=== PATIENT | male | born 1950 | race Caucasian/White ===

== ENCOUNTER 2017-10-16 19:26 | Inpatient (IN) | payer BC ==
[2017-10-16 19:26] VITALS: BMI 25.8
[2017-10-16] MEDS ORDERED: Sodium Chloride 0.9% 1,000 ML IV ONE ×2 (19:35→20:06)
--- NOTE | 2017-10-16 19:42 | C.PDOC ---
History Of Present Illness Patient brought in via EMS after feeling dizzy and diaphoretic at work. Medics found patient to be hypotensive, they gave 2 sublingual nitro and 324mg of aspirin in the field. On arrival, patient continued to be diaphoretic, bradycardic, and hypotensive. Denies chest pain. Chief Complaint (Nursing): Dizziness/Lightheaded History Per: Patient, EMS History/Exam Limitations: no limitations Onset/Duration Of Symptoms: Hrs Current Symptoms Are (Timing): Worse Activity At Onset Of Symptoms: Standing Associated Symptoms Preceding Syncopal Episode: No Predromal Symptoms (Sudden Onset) Seizure Or Post-ictal Symptoms: None Possible Causative Factor(s): Other (Not known) Fall Associated With With Symptoms: No Severity: Severe Pain Scale Rating Of: 8 Recent travel outside of the [place]: No Additional History Per: EMS - Symptoms Of CVA Associated Symptoms: denies: Impaired Speech, Seizure Activity, New Vision Deficit(Left), New Vision Deficit(Right), Decreased Ability To Walk, New Confusion Recent Head Trauma: No Past Medical History Reviewed: Historical Data, Nursing Documentation, Vital Signs Vital Signs: Last Vital Signs Temp 97.4 F L 10/16/17 19:39 Pulse 42 L 10/16/17 20:33 Resp 22 10/16/17 20:33 BP 96/40 L 10/16/17 20:33 Pulse Ox 100 10/16/17 21:07 - Medical History PMH: HTN, Hypercholesterolemia Surgical History: Denies: Pacemaker - [facility] Procedures CONTRAST AORTOGRAM (08/10/14) CORONAR ARTERIOGR-2 CATH (08/10/14) LT HEART ANGIOCARDIOGRAM (08/10/14) RT/LEFT HEART CARD CATH (08/10/14) Family History: States: No Known Family Hx - Social History Hx Alcohol Use: Yes (SPECIAL OCCASIONS) Hx Substance Use: No - Immunization History Hx Tetanus Toxoid Vaccination: No Hx Influenza Vaccination: No Hx Pneumococcal Vaccination: Yes Review Of Systems Constitutional: Positive for: Sweats. Negative for: Fever, Chills Eyes: Negative for: Vision Change ENT: Negative for: Throat Pain Cardiovascular: Negative for: Chest Pain, Palpitations Respiratory: Negative for: Cough, Shortness of Breath Gastrointestinal: Negative for: Nausea, Vomiting Genitourinary: Negative for: Dysuria, Hematuria Musculoskeletal: Negative for: Back Pain Skin: Negative for: Rash Neurological: Positive for: Dizziness. Negative for: Weakness, Numbness Psych: Negative for: Anxiety Physical Exam - Physical Exam Appears: In Acute Distress Skin: Diaphoretic, No Rash Head: Normacephalic Eye(s): bilateral: Normal Inspection Nose: Normal Oral Mucosa: Dry Lips: Normal Appearing Throat: No Erythema Neck: Trachea Midline, Supple Chest: Other (Surgical scar over sternum after AVR) Cardiovascular: Rhythm Regular (Bradycardic) Respiratory: No Rales, No Rhonchi, No Wheezing Gastrointestinal/Abdominal: Soft, No Tenderness, No Distention, No Guarding Back: No CVA Tenderness Extremity: No Pedal Edema, No Calf Tenderness, Capillary Refill (<2 seconds) Extremity: Bilateral: Atraumatic, No Pedal Edema, Normal Color And Temperature Pulses: Left Carotid: Normal, Right Carotid: Normal, Left Radial: Normal, Right Radial: Normal, Left Dorsalis Pedis: Normal, Right Dorsalis Pedis: Normal Neurological/Psych: Oriented x3, Other (No focal deficits) Gait: Unable To Assess ED Course And Treatment - Laboratory Results Result Diagrams: 10/16/17 19:46 10/16/17 19:46 ECG: Interpreted By Me, Viewed By Me ECG Rhythm: Sinus Bradycardia (47), Nonspecific Changes O2 Sat by Pulse Oximetry: 100 (Room air) Pulse Ox Interpretation: Normal - Radiology CXR: Interpreted by Me, Viewed By Me CXR Interpretation: Yes: Other (chf, sternotomy scar, avr). No: Infiltrates, Cardiomegaly Progress Note: 19:22 - Texted Dr. Peng, code heart oncall, the EKG and states patient does not meet code heart criteria. Blood work, EKG, CXR, and urinalysis ordered. 7:42PM repeat ekg sinus shaka 48 , freq pvc's poss anterolat ischemic changes. 8 pm pt still somewhat diaphoretic, dizzy. 8:24 right sided ekg sinus shaka ? junctional vs escape rhythm. started pt on dopamine at [address] bryan-ICU- will come and see the pt in the ed. now sinus tach 108. will decrease the dopamine. pt feels better Critical Care Time - Critical Care Note Total Time (in mins): 95 Documented critical care: time excludes all time spent performing seperately billable procedures. Disposition Counseled Patient/Family Regarding: Studies Performed, Diagnosis - Disposition Disposition: HOSPITALIZED Disposition Time: 19:41 Condition: CRITICAL - POA Present On Arrival: Poor Glycemic Control - Clinical Impression Clinical Impression: Dizziness, Symptomatic bradycardia - Scribe Statement The provider has reviewed the documentation as recorded by the Scribleida Holden All medical record entries made by the Scribe were at my direction and personally dictated by me. I have reviewed the chart and agree that the record accurately reflects my personal performance of the history, physical exam, medical decision making, and the department course for this patient. I have also personally directed, reviewed, and agree with the discharge instructions and disposition. Decision To Admit - Pt Status Changed To: Hospital Disposition Of: Inpatient - Admit Certification Admit to Inpatient:: After my assessment, the patient will require hospitalization for at least two midnights. This is because of the severity of symptoms shown, intensity of services needed, and/or the medical risk in this patient being treated as an outpatient. - InPatient: Physician Admission Certification: I certify that this patient requires 2 or more midnights of care for the following reason:: After my assessment, the patient will require hospitalization for at least two midnights. This is because of the severity of symptoms shown, intensity of services needed, and/or the medical risk in this patient being treated as an outpatient. - . Bed Request Type: ICU Admitting Physician: Triston Leyva Patient Diagnosis: Dizziness, Symptomatic bradycardia
[2017-10-16] MEDS ORDERED: Atropine Sulfate 1 mg/ml Vial (1 ml) IVP ONE ×2 (19:43→20:06)
[2017-10-16 19:54] LABS: BASO # 0.1 K/uL (0.0-0.2); EOS # 0.3 K/uL (0.0-0.7); EOS % 2.1 % (0.0-4.0); HEMOGLOBIN 14.4 g/dL (12.0-18.0); LYMPH % 40.3 % (20.0-40.0); MEAN CELL VOLUME 80.6 fL (80.0-94.0); MEAN CORPUSCULAR HGB CONC 34.8 g/dL (33.0-37.0); MEAN PLATELET VOLUME 10.7 fL (7.2-11.7); MONO # 1.5 K/uL (0.0-0.8); MONO % 9.7 % (0.0-10.0); NEUT % 46.9 % (50.0-75.0); NRBC % 0.3 % (0.0-2.0); RBC 5.15 Mil/uL (4.40-5.90); RED CELL DISTRIBUTION WIDTH 13.6 % (11.5-14.5)
[2017-10-16 19:57] LABS: INR 1.2; PROTHROMBIN TIME 12.7 SECONDS (9.7-12.2)
[2017-10-16] MEDS ORDERED: Benzoin Compound Tincture (60 ml) ONE (19:58)
[2017-10-16 20:05] LABS: ALB/GLOB RATIO 1.5 (1.0-2.1); ALBUMIN 4.4 g/dL (3.5-5.0); ALT/SGPT 29 U/L (21-72); AST/SGOT 21 U/L (17-59); BLOOD UREA NITROGEN 33 mg/dL (9-20); CALCIUM 9.9 mg/dl (8.6-10.4); GFR AFRICAN-AMERICAN > 60; GFR NON-AFRICAN AMERICAN 55; HDL CHOLESTEROL 29 mg/dL (30-70); LIPASE 88 U/L (23-300)
[2017-10-16 20:08] LABS: VENOUS BLOOD GAS BASE EXCESS -1.7 mmol/L (0.0-2.0); VENOUS BLOOD GAS PCO2 19 mmHg (40-60); VENOUS BLOOD GAS PO2 68 mm/Hg (30-55); VENOUS BLOOD PH 7.58 (7.32-7.43)
[2017-10-16 20:16] LABS: B-TYPE NATRIURETIC PEPTIDE 739 pg/mL (0-900); CK-MB 1.43 ng/mL (0.0-3.38); LDL CHOLESTEROL 78 mg/dL (0-129)
[2017-10-16] MEDS ORDERED: DOPamine 400mg/250ml D5W 400 MG/250 ML BAG IV ONE (20:32)
[2017-10-16 22:03] LABS: URINE BACTERIA RARE (<OCC); URINE BILIRUBIN NEGATIVE (NEGATIVE); URINE BLOOD NEGATIVE (NEGATIVE); URINE CLARITY Clear (Clear); URINE COLOR Yellow (YELLOW); URINE GLUCOSE (UA) 1+ mg/dL (Normal); URINE LEUKOCYTE ESTERASE NEG Leu/uL (Negative); URINE PROTEIN NEGATIVE (NEGATIVE); URINE UROBILINOGEN NORMAL mg/dL (0.2-1.0)
--- NOTE | 2017-10-16 23:03 | CP.PCM.CON ---
History of Present Illness - History of Present Illness History of Present Illness: 67 y/o male with HTN,DM,Aortic valve replacement brought in via EMS with c/o dizziness,headache and sweating while at at work. Medics found patient to be hypotensive, they gave 2 sublingual nitro and 324mg of aspirin in the field. On arrival, patient continued to be diaphoretic, bradycardic, and hypotensive. Denies chest pain,difficulty breathing In ER rectal temperature was 93.9F Vomited in ER and ICU.C/o headache and dry mouth Denies abdominal pain. Review of Systems - Review of Systems Systems not reviewed;Unavailable: Unstable Vital Signs - Constitutional Constitutional: Headache. absent: Anorexia, Chills, Fever - EENT Eyes: absent: Blurred Vision, Pain Ears: Dizziness. absent: Ear Pain Nose/Mouth/Throat: absent: Hoarsness, Sore Throat - Cardiovascular Cardiovascular: absent: Chest Pain, Dyspnea, Edema, Palpitations - Respiratory Respiratory: absent: Cough, Dyspnea - Gastrointestinal Gastrointestinal: Nausea, Vomiting. absent: Abdominal Pain - Genitourinary Genitourinary: absent: Dysuria, Urinary Frequency - Musculoskeletal Musculoskeletal: absent: Back Pain, Neck Pain - Integumentary Integumentary: absent: Rash, Unusual Bruising - Neurological Neurological: Dizziness - Endocrine Endocrine: absent: Polydipsia, Polyuria Past Patient History - Infectious Disease Hx of Infectious Diseases: None - Past Medical History & Family History Past Medical History?: Yes - Past Social History Smoking Status: Never Smoked Occupation: works at the [employer]: Denies Home Situation {Lives}: With Family - CARDIAC Hx Cardiac Disorders: Yes Hx Congestive Heart Failure: Yes Hx Hypercholesterolemia: Yes Hx Hypertension: Yes - PULMONARY Hx Respiratory Disorders: No - NEUROLOGICAL Hx Neurological Disorder: No - HEENT Hx HEENT Problems: Yes Other/Comment: wearseyeglasses - RENAL Hx Chronic Kidney Disease: No - ENDOCRINE/METABOLIC Hx Endocrine Disorders: Yes Hx Diabetes Mellitus Type 2: Yes - HEMATOLOGICAL/ONCOLOGICAL Hx Blood Disorders: No - INTEGUMENTARY Hx Dermatological Problems: No - MUSCULOSKELETAL/RHEUMATOLOGICAL Hx Musculoskeletal Disorders: No - GASTROINTESTINAL Hx Gastrointestinal Disorders: No - GENITOURINARY/GYNECOLOGICAL Hx Genitourinary Disorders: No - PSYCHIATRIC Hx Psychophysiologic Disorder: No - SURGICAL HISTORY Hx Surgeries: Yes (KIDNEY BX) Hx Open Heart Surgery: Yes (aortic valve replac, 2 yrs ago) - ANESTHESIA Hx Anesthesia: Yes Hx Anesthesia Reactions: No Hx Malignant Hyperthermia: No Has any member of the family had a problem w/ anesthesia?: No Meds Allergies/Adverse Reactions: Allergies Allergy/AdvReac Type Severity Reaction Status Date / Time No Known Allergies Allergy Verified 10/16/17 19:32 - Medications Medications: Current Medications Sodium Chloride (Sodium Chloride 0.9%) 1,000 mls @ 100 mls/hr IV .Q10H ONE Stop: 10/17/17 06:05 Last Admin: 10/16/17 20:07 Dose: 100 mls/hr Potassium Chloride (Potassium Chloride 20 Meq/100 Ml) 20 meq in 100 mls @ 50 mls/hr IVPB ONCE ONE Stop: 10/16/17 23:44 Last Admin: 10/16/17 21:45 Dose: 50 mls/hr Physical Exam - Constitutional Appears: No Acute Distress - Head Exam Head Exam: ATRAUMATIC, NORMAL INSPECTION, NORMOCEPHALIC - Eye Exam Eye Exam: EOMI, Normal appearance, PERRL - ENT Exam ENT Exam: Mucous Membranes Dry - Neck Exam Neck exam: Positive for: Normal Inspection. Negative for: Meningismus - Respiratory Exam Respiratory Exam: Clear to Auscultation Bilateral, NORMAL BREATHING PATTERN - Cardiovascular Exam Cardiovascular Exam: Irregular Rhythm. absent: JVD - GI/Abdominal Exam GI & Abdominal Exam: Normal Bowel Sounds, Soft. absent: Tenderness - Extremities Exam Extremities exam: Positive for: normal inspection, pedal pulses present. Negative for: calf tenderness, pedal edema - Neurological Exam Neurological exam: Alert, Oriented x3 - Skin Skin Exam: Normal Color Results - Vital Signs Recent Vital Signs: Last Vital Signs Temp 93.9 F L 10/16/17 21:15 Pulse 71 10/16/17 21:15 Resp 16 10/16/17 21:15 BP 115/45 L 10/16/17 21:15 Pulse Ox 100 10/16/17 21:28 - Labs Result Diagrams: 10/16/17 19:46 10/16/17 19:46 Labs: Laboratory Results - last 24 hr 10/16/17 10/16/17 10/16/17 19:30 19:46 19:46 WBC 15.0 H RBC 5.15 Hgb 14.4 Hct 41.5 MCV 80.6 MCH 28.0 MCHC 34.8 RDW 13.6 Plt Count 213 MPV 10.7 Neut % (Auto) 46.9 L Lymph % (Auto) 40.3 H Ware % (Auto) 9.7 Eos % (Auto) 2.1 Baso % (Auto) 1.0 Neut # (Auto) 7.0 Lymph # (Auto) 6.0 H Ware # (Auto) 1.5 H Eos # (Auto) 0.3 Baso # (Auto) 0.1 PT 12.7 H INR 1.2 APTT 29 pO2 VBG pH VBG pCO2 VBG HCO3 VBG Total CO2 VBG O2 Sat (Calc) VBG Base Excess VBG Potassium Glucose Lactate Crit Value Called To Crit Value Called By Crit Value Read Back Blood Gas Notified Time Sodium Potassium Chloride Carbon Dioxide Anion Gap BUN Creatinine Est GFR ( Amer) Est GFR (Non-Af Amer) POC Glucose (mg/dL) 170 H Random Glucose Calcium Total Bilirubin AST ALT Alkaline Phosphatase Total Creatine Kinase CK-MB (Mass) Troponin I NT-Pro-B Natriuret Pep Total Protein Albumin Globulin Albumin/Globulin Ratio Triglycerides Cholesterol LDL Cholesterol Direct HDL Cholesterol Lipase Free T4 TSH 3rd Generation Plasma Cortisol PM Venous Blood Potassium Urine Color Urine Clarity Urine pH Ur Specific [place] Urine Protein Urine Glucose (UA) Urine Ketones Urine Blood Urine Nitrate Urine Bilirubin Urine Urobilinogen Ur Leukocyte Esterase Urine WBC (Auto) Urine RBC (Auto) Urine Bacteria Blood Type Antibody Screen 10/16/17 10/16/17 10/16/17 19:46 19:46 19:55 WBC RBC Hgb Hct MCV MCH MCHC RDW Plt Count MPV Neut % (Auto) Lymph % (Auto) Ware % (Auto) Eos % (Auto) Baso % (Auto) Neut # (Auto) Lymph # (Auto) Ware # (Auto) Eos # (Auto) Baso # (Auto) PT INR APTT pO2 68 H VBG pH 7.58 H VBG pCO2 19 L* VBG HCO3 23.6 VBG Total CO2 18.4 L VBG O2 Sat (Calc) 96.5 H VBG Base Excess -1.7 L VBG Potassium 2.9 L Glucose 178 H Lactate 2.6 H Crit Value Called To Er nurse Crit Value Called By Ismael rt Crit Value Read Back Y Blood Gas Notified Time 2007 Sodium 143 141.0 Potassium 3.1 L Chloride 108 H 109.0 H Carbon Dioxide 17 L Anion Gap 21 H BUN 33 H Creatinine 1.3 Est GFR ( Amer) > 60 Est GFR (Non-Af Amer) 55 POC Glucose (mg/dL) Random Glucose 179 H Calcium 9.9 Total Bilirubin 0.6 AST 21 ALT 29 Alkaline Phosphatase 73 Total Creatine Kinase 93 CK-MB (Mass) 1.43 Troponin I < 0.0120 NT-Pro-B Natriuret Pep 739 Total Protein 7.3 Albumin 4.4 Globulin 2.9 Albumin/Globulin Ratio 1.5 Triglycerides 204 H Cholesterol 150 LDL Cholesterol Direct 78 HDL Cholesterol 29 L Lipase 88 Free T4 TSH 3rd Generation Plasma Cortisol PM Venous Blood Potassium 2.9 L Urine Color Urine Clarity Urine pH Ur Specific [place] Urine Protein Urine Glucose (UA) Urine Ketones Urine Blood Urine Nitrate Urine Bilirubin Urine Urobilinogen Ur Leukocyte Esterase Urine WBC (Auto) Urine RBC (Auto) Urine Bacteria Blood Type O POSITIVE Antibody Screen Negative 10/16/17 10/16/17 10/16/17 21:48 21:48 21:48 WBC RBC Hgb Hct MCV MCH MCHC RDW Plt Count MPV Neut % (Auto) Lymph % (Auto) Ware % (Auto) Eos % (Auto) Baso % (Auto) Neut # (Auto) Lymph # (Auto) Ware # (Auto) Eos # (Auto) Baso # (Auto) PT INR APTT pO2 VBG pH VBG pCO2 VBG HCO3 VBG Total CO2 VBG O2 Sat (Calc) VBG Base Excess VBG Potassium Glucose Lactate Crit Value Called To Crit Value Called By Crit Value Read Back Blood Gas Notified Time Sodium Potassium Chloride Carbon Dioxide Anion Gap BUN Creatinine Est GFR ( Amer) Est GFR (Non-Af Amer) POC Glucose (mg/dL) Random Glucose Calcium Total Bilirubin AST ALT Alkaline Phosphatase Total Creatine Kinase CK-MB (Mass) Troponin I NT-Pro-B Natriuret Pep Total Protein Albumin Globulin Albumin/Globulin Ratio Triglycerides Cholesterol LDL Cholesterol Direct HDL Cholesterol Lipase Free T4 TSH 3rd Generation 1.42 Plasma Cortisol PM 30.4 H Venous Blood Potassium Urine Color Yellow Urine Clarity Clear Urine pH 5.0 Ur Specific [place] 1.010 Urine Protein Negative Urine Glucose (UA) 1+ H Urine Ketones Trace Urine Blood Negative Urine Nitrate Negative Urine Bilirubin Negative Urine Urobilinogen Normal Ur Leukocyte Esterase Neg Urine WBC (Auto) 1 Urine RBC (Auto) 1 Urine Bacteria Rare Blood Type Antibody Screen 10/16/17 21:54 WBC RBC Hgb Hct MCV MCH MCHC RDW Plt Count MPV Neut % (Auto) Lymph % (Auto) Ware % (Auto) Eos % (Auto) Baso % (Auto) Neut # (Auto) Lymph # (Auto) Ware # (Auto) Eos # (Auto) Baso # (Auto) PT INR APTT pO2 VBG pH VBG pCO2 VBG HCO3 VBG Total CO2 VBG O2 Sat (Calc) VBG Base Excess VBG Potassium Glucose Lactate Crit Value Called To Crit Value Called By Crit Value Read Back Blood Gas Notified Time Sodium Potassium Chloride Carbon Dioxide Anion Gap BUN Creatinine Est GFR ( Amer) Est GFR (Non-Af Amer) POC Glucose (mg/dL) Random Glucose Calcium Total Bilirubin AST ALT Alkaline Phosphatase Total Creatine Kinase CK-MB (Mass) Troponin I NT-Pro-B Natriuret Pep Total Protein Albumin Globulin Albumin/Globulin Ratio Triglycerides Cholesterol LDL Cholesterol Direct HDL Cholesterol Lipase Free T4 1.06 TSH 3rd Generation Plasma Cortisol PM Venous Blood Potassium Urine Color Urine Clarity Urine pH Ur Specific [place] Urine Protein Urine Glucose (UA) Urine Ketones Urine Blood Urine Nitrate Urine Bilirubin Urine Urobilinogen Ur Leukocyte Esterase Urine WBC (Auto) Urine RBC (Auto) Urine Bacteria Blood Type Antibody Screen - EKG Data EKG Interpreted by: Myself - Imaging and Cardiology Chest x-ray Status: Image reviewed by me CT scan - head Status: Image reviewed by me Assessment & Plan - Assessment and Plan (Free Text) Assessment: 67 y/o male with HTN,DM,aortic valve replacement admitted with bradycardia, hypotension and hypothermia, Respiratory alkalosis r/o sepsis / ?cardiac eitiology initial troponin normal IV antibiotics Hypokalemia-replace potassium h/o HTN-hold meds DM- insulin coverage
[2017-10-16] MEDS ORDERED: (Novolin R) Insulin Human Regular 100 units/ml vial SC SCH (23:30)
[2017-10-16] MEDS: Piperacill/Tazo 3.375gm in Dex 3.375 GM/50 ML BAG IVPB SCH (23:30)
[2017-10-16 23:50] LABS: VENOUS BLOOD GAS PCO2 30 mmHg (40-60); VENOUS BLOOD GAS PO2 37 mm/Hg (30-55)
[2017-10-17 00:29] LABS: BLOOD UREA NITROGEN 30 mg/dL (9-20); CALCIUM 9.2 mg/dl (8.6-10.4); GFR AFRICAN-AMERICAN > 60; GFR NON-AFRICAN AMERICAN > 60
[2017-10-17] MEDS: (Novolin R) Insulin Human Regular 100 units/ml vial SC SCH ×5 (00:30→21:16)
--- NOTE | 2017-10-17 00:51 | CP.PCM.HP ---
<Sue Corrales - Last Filed: 10/17/17 01:21> History of Present Illness - History of Present Illness History of Present Illness: CC: Headche and diaphoretic HPI (As per family member and some information from patient) Patient is a 67 year old male with past medical history of HTN, DM, Hypercholesterolemia, Congenital aortic valve dz? (Aortic valve replacement 2 years ago), who was brought in by ambulance due to symptoms of sudden dizziness , diaphoresis and headache with associated symptoms of nausea and vomiting. As per patient, he was completely asymptomatic and doing well until the onset of his symptoms. As per EMS, patient was noted to be hypotensive and was given loading dose of aspirin and Sublingual Nitro X2. Upon arrival to the ED, patient was noted to have additional symptoms of sinus bradycardia (pulse rate of 48), patient was given NS bolus and 2mg of atropine, which did not provide much improvement. ICU evaluation was requested as patient was started on dopamine drip in the ED. Patient admits to dizziness, headache, nausea, non- bilious vomit X6, diaphoretic, dyspnea but denies chest pain, recent sickness, sick contact or recent travels, neck pain and abdominal pain. Patient denies any past episodes of similar presentation. Code Status: Full code PMHx: HTN, DM, Hypercholesterolemia, Congenital aortic valve dz? PSHx: Kidney biopsy (? Left for proteinuria) and Aortic valve replacement 2 years ago) FHx: Non-contributory Medications: Allergies: NKDA Social Hx: Lives with . 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 Denies current or former use of tobacco, ETOH and illicit drugs Present on Admission - Present on Admission Any Indicators Present on Admission: No Review of Systems - Constitutional Constitutional: Excessive Sweating, Headache, Lethargy, Weakness. absent: Anorexia, Chills - EENT Eyes: absent: Blurred Vision, Change in Vision, Photophobia Ears: Dizziness - Cardiovascular Cardiovascular: Diaphoresis, Dyspnea. absent: Chest Pain, Orthopnea, Palpitations, Pedal Edema, Radiating Pain, Rapid Heart Rate, Slow Heart Rate, Syncope - Respiratory Respiratory: Dyspnea. absent: Cough, Hemoptysis, Dyspnea on Exertion, Wheezing , Pain on Inspiration, Chest Congestion, Excessive Mucous Production, Change in Mucous Color, Pain with Coughing - Gastrointestinal Gastrointestinal: Nausea, Vomiting. absent: Abdominal Pain, Diarrhea, Excessive Flatus, Hematemesis - Genitourinary Genitourinary: absent: Dysuria, Pyuria - Musculoskeletal Musculoskeletal: absent: Limited Range of Motion, Numbness, Tingling - Integumentary Integumentary: absent: Rash - Neurological Neurological: Dizziness, Headaches, Weakness. absent: Confusion, Numbness, Lack of Coordination, Tingling, Tremor Past Patient History - Infectious Disease Hx of Infectious Diseases: None - Past Medical History & Family History Past Medical History?: Yes - Past Social History Smoking Status: Never Smoked Occupation: works at [employer]: Denies Home Situation {Lives}: With Family - CARDIAC Hx Cardiac Disorders: Yes Hx Congestive Heart Failure: Yes Hx Hypercholesterolemia: Yes Hx Hypertension: Yes - PULMONARY Hx Respiratory Disorders: No - NEUROLOGICAL Hx Neurological Disorder: No - HEENT Hx HEENT Problems: Yes Other/Comment: [email or web address] - RENAL Hx Chronic Kidney Disease: No - ENDOCRINE/METABOLIC Hx Endocrine Disorders: Yes Hx Diabetes Mellitus Type 2: Yes - HEMATOLOGICAL/ONCOLOGICAL Hx Blood Disorders: No - INTEGUMENTARY Hx Dermatological Problems: No - MUSCULOSKELETAL/RHEUMATOLOGICAL Hx Musculoskeletal Disorders: No - GASTROINTESTINAL Hx Gastrointestinal Disorders: No - GENITOURINARY/GYNECOLOGICAL Hx Genitourinary Disorders: No - PSYCHIATRIC Hx Psychophysiologic Disorder: No - SURGICAL HISTORY Hx Surgeries: Yes (KIDNEY BX) Hx Open Heart Surgery: Yes (aortic valve replac, 2 yrs ago) - ANESTHESIA Hx Anesthesia: Yes Hx Anesthesia Reactions: No Hx Malignant Hyperthermia: No Has any member of the family had a problem w/ anesthesia?: No Meds Allergies/Adverse Reactions: Allergies Allergy/AdvReac Type Severity Reaction Status Date / Time No Known Allergies Allergy Verified 10/16/17 19:32 Physical Exam - Constitutional Appears: In Acute Distress - Head Exam Head Exam: ATRAUMATIC, NORMAL INSPECTION - Eye Exam Eye Exam: EOMI, Normal appearance, PERRL - ENT Exam ENT Exam: Mucous Membranes Moist - Respiratory Exam Respiratory Exam: Clear to Auscultation Bilateral, NORMAL BREATHING PATTERN. absent: Chest Wall Tenderness, Prolonged Expiratory Phase, Rhonchi, Wheezes, Respiratory Distress, Stridor - Cardiovascular Exam Cardiovascular Exam: Bradycardia, REGULAR RHYTHM, +S1, +S2, Systolic Murmur - GI/Abdominal Exam GI & Abdominal Exam: Normal Bowel Sounds, Soft. absent: Diminished Bowel Sounds , Distended, Guarding, Hyperactive Bowel Sounds, Hypoactive Bowel Sounds, Tenderness - Extremities Exam Extremities exam: Positive for: normal inspection. Negative for: calf tenderness, joint swelling, pedal edema, tenderness - Back Exam Back exam: NORMAL INSPECTION. absent: CVA tenderness (L), CVA tenderness (R) - Neurological Exam Neurological exam: Alert, CN II-XII Intact, Oriented x3 - Psychiatric Exam Psychiatric exam: Normal Affect - Skin Skin Exam: Diaphoretic, Normal Color Results - Vital Signs Recent Vital Signs: Last Vital Signs Temp 93.9 F L 10/16/17 21:15 Pulse 71 10/16/17 21:15 Resp 16 10/16/17 21:15 BP 115/45 L 10/16/17 21:15 Pulse Ox 100 10/16/17 21:28 - Labs Result Diagrams: 10/16/17 19:46 10/16/17 23:59 Labs: Laboratory Results - last 24 hr 10/16/17 10/16/17 10/16/17 19:30 19:46 19:46 WBC 15.0 H RBC 5.15 Hgb 14.4 Hct 41.5 MCV 80.6 MCH 28.0 MCHC 34.8 RDW 13.6 Plt Count 213 MPV 10.7 Neut % (Auto) 46.9 L Lymph % (Auto) 40.3 H Frederick % (Auto) 9.7 Eos % (Auto) 2.1 Baso % (Auto) 1.0 Neut # (Auto) 7.0 Lymph # (Auto) 6.0 H Frederick # (Auto) 1.5 H Eos # (Auto) 0.3 Baso # (Auto) 0.1 PT 12.7 H INR 1.2 APTT 29 pO2 VBG pH VBG pCO2 VBG HCO3 VBG Total CO2 VBG O2 Sat (Calc) VBG Base Excess VBG Potassium Glucose Lactate Crit Value Called To Crit Value Called By Crit Value Read Back Blood Gas Notified Time Sodium Potassium Chloride Carbon Dioxide Anion Gap BUN Creatinine Est GFR ( Amer) Est GFR (Non-Af Amer) POC Glucose (mg/dL) 170 H Random Glucose Calcium Magnesium Total Bilirubin AST ALT Alkaline Phosphatase Total Creatine Kinase CK-MB (Mass) Troponin I NT-Pro-B Natriuret Pep Total Protein Albumin Globulin Albumin/Globulin Ratio Triglycerides Cholesterol LDL Cholesterol Direct HDL Cholesterol Lipase Free T4 TSH 3rd Generation Plasma Cortisol PM Venous Blood Potassium Urine Color Urine Clarity Urine pH Ur Specific Acworth Urine Protein Urine Glucose (UA) Urine Ketones Urine Blood Urine Nitrate Urine Bilirubin Urine Urobilinogen Ur Leukocyte Esterase Urine WBC (Auto) Urine RBC (Auto) Urine Bacteria Blood Type Antibody Screen 10/16/17 10/16/17 10/16/17 19:46 19:46 19:55 WBC RBC Hgb Hct MCV MCH MCHC RDW Plt Count MPV Neut % (Auto) Lymph % (Auto) Frederick % (Auto) Eos % (Auto) Baso % (Auto) Neut # (Auto) Lymph # (Auto) Frederick # (Auto) Eos # (Auto) Baso # (Auto) PT INR APTT pO2 68 H VBG pH 7.58 H VBG pCO2 19 L* VBG HCO3 23.6 VBG Total CO2 18.4 L VBG O2 Sat (Calc) 96.5 H VBG Base Excess -1.7 L VBG Potassium 2.9 L Glucose 178 H Lactate 2.6 H Crit Value Called To Er nurse Crit Value Called By Ismael rt Crit Value Read Back Y Blood Gas Notified Time 2007 Sodium 143 141.0 Potassium 3.1 L Chloride 108 H 109.0 H Carbon Dioxide 17 L Anion Gap 21 H BUN 33 H Creatinine 1.3 Est GFR ( Amer) > 60 Est GFR (Non-Af Amer) 55 POC Glucose (mg/dL) Random Glucose 179 H Calcium 9.9 Magnesium Total Bilirubin 0.6 AST 21 ALT 29 Alkaline Phosphatase 73 Total Creatine Kinase 93 CK-MB (Mass) 1.43 Troponin I < 0.0120 NT-Pro-B Natriuret Pep 739 Total Protein 7.3 Albumin 4.4 Globulin 2.9 Albumin/Globulin Ratio 1.5 Triglycerides 204 H Cholesterol 150 LDL Cholesterol Direct 78 HDL Cholesterol 29 L Lipase 88 Free T4 TSH 3rd Generation Plasma Cortisol PM Venous Blood Potassium 2.9 L Urine Color Urine Clarity Urine pH Ur Specific Acworth Urine Protein Urine Glucose (UA) Urine Ketones Urine Blood Urine Nitrate Urine Bilirubin Urine Urobilinogen Ur Leukocyte Esterase Urine WBC (Auto) Urine RBC (Auto) Urine Bacteria Blood Type O POSITIVE Antibody Screen Negative 10/16/17 10/16/17 10/16/17 21:48 21:48 21:48 WBC RBC Hgb Hct MCV MCH MCHC RDW Plt Count MPV Neut % (Auto) Lymph % (Auto) Frederick % (Auto) Eos % (Auto) Baso % (Auto) Neut # (Auto) Lymph # (Auto) Frederick # (Auto) Eos # (Auto) Baso # (Auto) PT INR APTT pO2 VBG pH VBG pCO2 VBG HCO3 VBG Total CO2 VBG O2 Sat (Calc) VBG Base Excess VBG Potassium Glucose Lactate Crit Value Called To Crit Value Called By Crit Value Read Back Blood Gas Notified Time Sodium Potassium Chloride Carbon Dioxide Anion Gap BUN Creatinine Est GFR ( Amer) Est GFR (Non-Af Amer) POC Glucose (mg/dL) Random Glucose Calcium Magnesium Total Bilirubin AST ALT Alkaline Phosphatase Total Creatine Kinase CK-MB (Mass) Troponin I NT-Pro-B Natriuret Pep Total Protein Albumin Globulin Albumin/Globulin Ratio Triglycerides Cholesterol LDL Cholesterol Direct HDL Cholesterol Lipase Free T4 TSH 3rd Generation 1.42 Plasma Cortisol PM 30.4 H Venous Blood Potassium Urine Color Yellow Urine Clarity Clear Urine pH 5.0 Ur Specific Acworth 1.010 Urine Protein Negative Urine Glucose (UA) 1+ H Urine Ketones Trace Urine Blood Negative Urine Nitrate Negative Urine Bilirubin Negative Urine Urobilinogen Normal Ur Leukocyte Esterase Neg Urine WBC (Auto) 1 Urine RBC (Auto) 1 Urine Bacteria Rare Blood Type Antibody Screen 10/16/17 10/16/17 10/16/17 21:54 23:30 23:42 WBC RBC Hgb Hct MCV MCH MCHC RDW Plt Count MPV Neut % (Auto) Lymph % (Auto) Frederick % (Auto) Eos % (Auto) Baso % (Auto) Neut # (Auto) Lymph # (Auto) Frederick # (Auto) Eos # (Auto) Baso # (Auto) PT INR APTT pO2 37 VBG pH 7.40 VBG pCO2 30 L VBG HCO3 20.3 VBG Total CO2 19.5 L VBG O2 Sat (Calc) 73.6 H VBG Base Excess -5.0 L VBG Potassium 13.3 H* Glucose 214 H Lactate 1.1 Crit Value Called To Lauri ricks viticulturist Crit Value Called By Naomi maher rt Crit Value Read Back Y Blood Gas Notified Time 2349 Sodium 134.0 Potassium Chloride 118.0 H Carbon Dioxide Anion Gap BUN Creatinine Est GFR ( Amer) Est GFR (Non-Af Amer) POC Glucose (mg/dL) Random Glucose Calcium Magnesium 1.1 L Total Bilirubin AST ALT Alkaline Phosphatase Total Creatine Kinase CK-MB (Mass) Troponin I NT-Pro-B Natriuret Pep Total Protein Albumin Globulin Albumin/Globulin Ratio Triglycerides Cholesterol LDL Cholesterol Direct HDL Cholesterol Lipase Free T4 1.06 TSH 3rd Generation Plasma Cortisol PM Venous Blood Potassium 13.3 H* Urine Color Urine Clarity Urine pH Ur Specific [place]worth Urine Protein Urine Glucose (UA) Urine Ketones Urine Blood Urine Nitrate Urine Bilirubin Urine Urobilinogen Ur Leukocyte Esterase Urine WBC (Auto) Urine RBC (Auto) Urine Bacteria Blood Type Antibody Screen 10/16/17 10/17/17 23:59 00:36 WBC RBC Hgb Hct MCV MCH MCHC RDW Plt Count MPV Neut % (Auto) Lymph % (Auto) Frederick % (Auto) Eos % (Auto) Baso % (Auto) Neut # (Auto) Lymph # (Auto) Frederick # (Auto) Eos # (Auto) Baso # (Auto) PT INR APTT pO2 VBG pH VBG pCO2 VBG HCO3 VBG Total CO2 VBG O2 Sat (Calc) VBG Base Excess VBG Potassium Glucose Lactate Crit Value Called To Crit Value Called By Crit Value Read Back Blood Gas Notified Time Sodium 144 Potassium 3.7 Chloride 110 H Carbon Dioxide 21 L Anion Gap 17 BUN 30 H Creatinine 1.1 Est GFR ( Amer) > 60 Est GFR (Non-Af Amer) > 60 POC Glucose (mg/dL) 226 H Random Glucose 222 H Calcium 9.2 Magnesium Total Bilirubin AST ALT Alkaline Phosphatase Total Creatine Kinase CK-MB (Mass) Troponin I NT-Pro-B Natriuret Pep Total Protein Albumin Globulin Albumin/Globulin Ratio Triglycerides Cholesterol LDL Cholesterol Direct HDL Cholesterol Lipase Free T4 TSH 3rd Generation Plasma Cortisol PM Venous Blood Potassium Urine Color Urine Clarity Urine pH Ur Specific Acworth Urine Protein Urine Glucose (UA) Urine Ketones Urine Blood Urine Nitrate Urine Bilirubin Urine Urobilinogen Ur Leukocyte Esterase Urine WBC (Auto) Urine RBC (Auto) Urine Bacteria Blood Type Antibody Screen Assessment & Plan (1) Symptomatic bradycardia Assessment and Plan: With hypotension Dopamine Drip (Titratable) F/u echocardiogram Status: Acute (2) Hypotension Assessment and Plan: Dopamine Drip (Titratable) Plasma Cortisol: 30.4 ( WNL) TSH and Free T4: 1.42 and 1.06, respectively Troponin: Negative X1 Chest CT w/o IV contrast: No acute findings Status: Acute (3) Headache Assessment and Plan: Associated with nausea and vomiting Head CT: No hemorrhage, No edema. Opacified maxillary sinuses with periosteal thickening (Chronic sinusitis). Calcified mass in the right nasal airway. Plans of Brain MRI Vancomycin 1gm IV Q12H and Zosyn 3.375gm IV Q6H ( Empirical treatment for infectious etiology) Status: Acute (4) Nausea & vomiting Assessment and Plan: NPO Zofran 4mg IV Q6H PRN Protonix 40mg IV daily Status: Acute (5) Diabetes mellitus Assessment and Plan: Accuckes ISS- Low dose Status: Acute (6) Prophylactic measure Assessment and Plan: GI: Protonix 40mg IV daily DVT: Lovenox 30mg SC daily Status: Acute <Triston Leyva P - Last Filed: 10/19/17 07:59> Results - Vital Signs Recent Vital Signs: Last Vital Signs Temp 98.1 F 10/19/17 04:00 Pulse 79 10/19/17 06:02 Resp 9 L 10/19/17 06:02 BP 148/65 10/19/17 06:02 Pulse Ox 96 10/19/17 06:02 - Labs Result Diagrams: 10/19/17 06:00 10/19/17 06:00 Labs: Laboratory Results - last 24 hr 10/18/17 10/18/17 10/18/17 09:57 09:57 09:57 WBC RBC Hgb Hct MCV MCH MCHC RDW Plt Count MPV Neut % (Auto) Lymph % (Auto) Frederick % (Auto) Eos % (Auto) Baso % (Auto) Neut # (Auto) Lymph # (Auto) Frederick # (Auto) Eos # (Auto) Baso # (Auto) ESR 15 Sodium Potassium Chloride Carbon Dioxide Anion Gap BUN Creatinine Est GFR ( Amer) Est GFR (Non-Af Amer) POC Glucose (mg/dL) Random Glucose Calcium Phosphorus Magnesium Total Bilirubin AST ALT Alkaline Phosphatase C-React Prot High Sens 3.01 H Total Protein Albumin Globulin Albumin/Globulin Ratio Triglycerides 109 D Cholesterol 153 LDL Cholesterol Direct 83 HDL Cholesterol 29 L Homocysteine 10.2 Free T4 0.81 TSH 3rd Generation 1.28 1.35 Vancomycin Trough 10/18/17 10/18/17 10/18/17 09:57 11:23 16:28 WBC RBC Hgb Hct MCV MCH MCHC RDW Plt Count MPV Neut % (Auto) Lymph % (Auto) Frederick % (Auto) Eos % (Auto) Baso % (Auto) Neut # (Auto) Lymph # (Auto) Frederick # (Auto) Eos # (Auto) Baso # (Auto) ESR Sodium Potassium Chloride Carbon Dioxide Anion Gap BUN Creatinine Est GFR ( Amer) Est GFR (Non-Af Amer) POC Glucose (mg/dL) 192 H 84 Random Glucose Calcium Phosphorus Magnesium Total Bilirubin AST ALT Alkaline Phosphatase C-React Prot High Sens Total Protein Albumin Globulin Albumin/Globulin Ratio Triglycerides Cholesterol LDL Cholesterol Direct HDL Cholesterol Homocysteine Free T4 TSH 3rd Generation Vancomycin Trough 12.7 H 10/18/17 10/19/17 10/19/17 21:08 06:00 06:00 WBC 6.6 RBC 4.73 Hgb 13.3 Hct 38.6 MCV 81.6 MCH 28.2 MCHC 34.5 RDW 13.8 Plt Count 102 L MPV 9.5 Neut % (Auto) 57.0 Lymph % (Auto) 29.8 Frederick % (Auto) 8.7 Eos % (Auto) 3.3 Baso % (Auto) 1.2 Neut # (Auto) 3.7 Lymph # (Auto) 2.0 Frederick # (Auto) 0.6 Eos # (Auto) 0.2 Baso # (Auto) 0.1 ESR Sodium 142 Potassium 4.1 Chloride 109 H Carbon Dioxide 23 Anion Gap 14 BUN 19 Creatinine 1.0 Est GFR ( Amer) > 60 Est GFR (Non-Af Amer) > 60 POC Glucose (mg/dL) 102 Random Glucose 99 Calcium 9.4 Phosphorus 2.8 Magnesium 1.6 Total Bilirubin 0.7 AST 16 L ALT 27 Alkaline Phosphatase 49 C-React Prot High Sens Total Protein 6.6 Albumin 3.7 Globulin 2.9 Albumin/Globulin Ratio 1.3 Triglycerides Cholesterol LDL Cholesterol Direct HDL Cholesterol Homocysteine Free T4 TSH 3rd Generation Vancomycin Trough Attending/Attestation - Attestation I have personally seen and examined this patient.: Yes I have fully participated in the care of the patient.: Yes I have reviewed all pertinent clinical information: Yes Notes (Text): See note on the same day
[2017-10-17] MEDS ORDERED: Magnesium Sulfate 1 gm in D5W 1 GM/100 ML BAG IVPB ONE (01:54)
--- NOTE | 2017-10-17 02:13 | CP.PCM.PN ---
Subjective - Date & Time of Evaluation Date of Evaluation: 10/16/17 Time of Evaluation: 21:00 - Subjective Subjective: 67 M with h/o AVR 2 yrs back, around 6:30 pm last evening suddenly started to have frontal headache, vomiting, nausea and dizziness. In hospital he was found bradycardic in 30's sinus rhythm, hypotensive, resp alkalosis. CT chest showed atelactesis, CT head unremarkable. Patient was started on dopamine in ER to maintain HR and BP. Patient remained Alert and oriented in ER. chest clear, CVS irregular shaka, sinus with PVC, PA soft, Ext no edema, RELATIONSHIP CONSULTANT alert oriented x3, headache but not nect tendersess or rigidity, or meningeal irritation signs. Hypothermic 93F in ER. Cortisol elevated appropriately and TSH/Ft4 in normal range. DD of RELATIONSHIP CONSULTANT vascular phenomena, migraine, unlikely but possible hidden subarachnoid, sepsis. Plan Titrate and dc dopamine as tolerated Bear hugger Empiric axb started MRI, MRA, MRV Echo Hold anticoagulation till MR imaging done Accucheck/sliding scale coverage Admitted to ICU. Objective - Vital Signs/Intake and Output Vital Signs (last 24 hours): Temp Pulse Resp BP Pulse Ox 93.9 F L 71 16 115/45 L 100 10/16/17 21:15 10/16/17 21:15 10/16/17 21:15 10/16/17 21:15 10/16/17 21:28 - Medications Medications: Current Medications Enoxaparin Sodium (Lovenox) 30 mg SC DAILY KEESHA Sodium Chloride (Sodium Chloride 0.9%) 1,000 mls @ 100 mls/hr IV .Q10H ONE Stop: 10/17/17 06:05 Last Admin: 10/16/17 20:07 Dose: 100 mls/hr Piperacillin Sod/Tazobactam Sod (Zosyn 3.375 Gm Iv Premix) 3.375 gm in 50 mls @ 100 mls/hr IVPB Q6H KEESHA PRN Reason: Protocol Last Admin: 10/16/17 23:30 Dose: 100 mls/hr Vancomycin/Sodium Chloride (Vancomycin 1 Gm/Ns 200 Ml) 1 gm in 200 mls @ 166.6 mls/hr IVPB Q12H KEESHA PRN Reason: Protocol Stop: 10/21/17 23:01 Last Admin: 10/17/17 00:00 Dose: 166.6 mls/hr Magnesium Sulfate/Dextrose (Magnesium Sulfate 1 Gm/100 Ml D5w) 1 gm in 100 mls @ 200 mls/hr IVPB ONCE ONE Stop: 10/17/17 02:23 Insulin Human Regular (Novolin R) 0 unit SC Q6 KEESHA PRN Reason: Protocol Last Admin: 10/17/17 00:30 Dose: Not Given Ondansetron HCl (Zofran Inj) 4 mg IVP Q4 PRN PRN Reason: nausea/vomiting Pantoprazole Sodium (Protonix Inj) 40 mg IVP DAILY KEESHA - Labs Labs: 10/16/17 19:46 10/16/17 23:59 PT 12.7 SECONDS (9.7-12.2) H 10/16/17 19:46 INR 1.2 10/16/17 19:46 APTT 29 SECONDS (21-34) 10/16/17 19:46
[2017-10-17] MEDS: Piperacill/Tazo 3.375gm in Dex 3.375 GM/50 ML BAG IVPB SCH ×4 (06:15→22:22)
[2017-10-17 06:30] LABS: BASO # 0.1 K/uL (0.0-0.2); BASO % 0.7 % (0.0-2.0); EOS % 0.4 % (0.0-4.0); HEMOGLOBIN 12.9 g/dL (12.0-18.0); LYMPH # 1.1 K/uL (1.0-4.3); MEAN CELL VOLUME 81.1 fL (80.0-94.0); MEAN CORPUSCULAR HGB CONC 34.5 g/dL (33.0-37.0); MEAN PLATELET VOLUME 9.5 fL (7.2-11.7); MONO # 0.5 K/uL (0.0-0.8); MONO % 6.5 % (0.0-10.0); NEUT # 5.8 K/uL (1.8-7.0); NEUT % 77.4 % (50.0-75.0); RBC 4.62 Mil/uL (4.40-5.90); RED CELL DISTRIBUTION WIDTH 13.6 % (11.5-14.5); WHITE BLOOD COUNT 7.5 K/uL (4.8-10.8)
--- NOTE | 2017-10-17 07:11 | RAD ---
Date of service: 10/16/2017 PROCEDURE: CHEST RADIOGRAPH, 1 VIEW HISTORY: chest pain COMPARISON: None available. FINDINGS: LUNGS: No acute pulmonary disease appreciated bilaterally. PLEURA: No pneumothorax or pleural fluid seen. CARDIOVASCULAR: Cardiomegaly is identified. No pulmonary vascular congestion. External pacer identified at the inferior left chest. OSSEOUS STRUCTURES: Sternotomy wires are identified. VISUALIZED UPPER ABDOMEN: Normal. OTHER FINDINGS: None. IMPRESSION: Cardiomegaly without pulmonary vascular congestion. Sternotomy wires are identified. No acute pulmonary disease appreciated bilaterally.
[2017-10-17 07:12] LABS: ALB/GLOB RATIO 1.5 (1.0-2.1); ALBUMIN 4.1 g/dL (3.5-5.0); ALT/SGPT 26 U/L (21-72); AST/SGOT 17 U/L (17-59); BLOOD UREA NITROGEN 22 mg/dL (9-20); CALCIUM 9.3 mg/dl (8.6-10.4); GFR AFRICAN-AMERICAN > 60; GFR NON-AFRICAN AMERICAN > 60
--- NOTE | 2017-10-17 07:47 | CT ---
Date of service: 10/16/2017 PROCEDURE: CT HEAD WITHOUT CONTRAST. HISTORY: dizzy COMPARISON: None available. TECHNIQUE: Axial computed tomography images were obtained through the head/brain without intravenous contrast. Radiation dose: Total exam DLP = 891 mGy-cm. This CT exam was performed using one or more of the following dose reduction techniques: Automated exposure control, adjustment of the mA and/or kV according to patient size, and/or use of iterative reconstruction technique. FINDINGS: HEMORRHAGE: No intracranial hemorrhage. BRAIN: No mass effect or edema. Scattered focal lucencies in the subcortical and periventricular white matter suggestive for chronic microvascular ischemic change. Small focal hypodensity in the posterior left frontal subcortical white matter on series 2, image 20 which may represent a small lacunar infarct. Left basal ganglia lacunar infarct. VENTRICLES: Unremarkable. No hydrocephalus. CALVARIUM: Unremarkable. PARANASAL SINUSES: Opacified maxillary sinuses with periosteal thickening noted suggesting chronic sinusitis. MASTOID AIR CELLS: Unremarkable as visualized. No inflammatory changes. OTHER FINDINGS: Calcified mass in the right nasal airway, likely chronic finding. IMPRESSION: 1. Opacified maxillary sinuses with periosteal thickening noted suggesting chronic sinusitis. 2. Calcified mass in the right nasal airway, likely chronic finding. Correlation with ENT evaluation may be helpful. 3. Scattered focal lucencies in the subcortical and periventricular white matter suggestive for chronic microvascular ischemic change. 4. Small focal hypodensity in the posterior left frontal subcortical white matter on series 2, image 20 which may represent a small lacunar infarct. 5. Left basal ganglia lacunar infarct. If focal neurologic deficit persists, consider correlation with MRI. These findings were preliminarily reported at 9:00 p.[address]. on 10/16/[address] Alfredito Quinn from from [employer].
--- NOTE | 2017-10-17 09:15 | CP.PCM.CON ---
History of Present Illness - History of Present Illness History of Present Illness: Consultation for evaluation of CHB HPI: 67 year old male with hx of s/p AVR ( marino bioprosthetic 25 mm ) at [facility] 06/25 ( Dr. Claude Spicer ) brought in by EMS for sx of dizziness, diaphoretic and nausea while at work. On presentation to the ED he was noted to be in CHB and responded to IV dopamine. Review of Systems - Review of Systems Systems not reviewed;Unavailable: Acuity of Condition - Constitutional Constitutional: As Per HPI - EENT Eyes: As Per HPI Ears: As Per HPI Nose/Mouth/Throat: As Per HPI - Cardiovascular Cardiovascular: As Per HPI - Respiratory Respiratory: As Per HPI - Gastrointestinal Gastrointestinal: As Per HPI - Genitourinary Genitourinary: As Per HPI - Reproductive: Male Reproductive:Male: As Per HPI - Musculoskeletal Musculoskeletal: As Per HPI - Integumentary Integumentary: As Per HPI - Neurological Neurological: As Per HPI - Psychiatric Psychiatric: As Per HPI - Endocrine Endocrine: As Per HPI - Hematologic/Lymphatic Hematologic: As Per HPI Past Patient History - Infectious Disease Hx of Infectious Diseases: None - Past Medical History & Family History Past Medical History?: Yes - Past Social History Smoking Status: Never Smoked Occupation: works at the [employer] Drugs: Denies Home Situation {Lives}: With Family - CARDIAC Hx Cardiac Disorders: Yes Hx Congestive Heart Failure: Yes Hx Hypercholesterolemia: Yes Hx Hypertension: Yes - PULMONARY Hx Respiratory Disorders: No - NEUROLOGICAL Hx Neurological Disorder: No - HEENT Hx HEENT Problems: Yes Other/Comment: wearyandel - RENAL Hx Chronic Kidney Disease: No - ENDOCRINE/METABOLIC Hx Endocrine Disorders: Yes Hx Diabetes Mellitus Type 2: Yes - HEMATOLOGICAL/ONCOLOGICAL Hx Blood Disorders: No - INTEGUMENTARY Hx Dermatological Problems: No - MUSCULOSKELETAL/RHEUMATOLOGICAL Hx Musculoskeletal Disorders: No - GASTROINTESTINAL Hx Gastrointestinal Disorders: No - GENITOURINARY/GYNECOLOGICAL Hx Genitourinary Disorders: No - PSYCHIATRIC Hx Psychophysiologic Disorder: No - SURGICAL HISTORY Hx Surgeries: Yes (KIDNEY BX) Hx Open Heart Surgery: Yes (aortic valve replac, 2 yrs ago) - ANESTHESIA Hx Anesthesia: Yes Hx Anesthesia Reactions: No Hx Malignant Hyperthermia: No Has any member of the family had a problem w/ anesthesia?: No Meds Allergies/Adverse Reactions: Allergies Allergy/AdvReac Type Severity Reaction Status Date / Time No Known Allergies Allergy Verified 10/16/17 19:32 - Medications Medications: Current Medications Enoxaparin Sodium (Lovenox) 30 mg SC DAILY [facility] Piperacillin Sod/Tazobactam Sod (Zosyn 3.375 Gm Iv Premix) 3.375 gm in 50 mls @ 100 mls/hr IVPB Q6H KEESHA PRN Reason: Protocol Last Admin: 10/17/17 06:15 Dose: 100 mls/hr Vancomycin/Sodium Chloride (Vancomycin 1 Gm/Ns 200 Ml) 1 gm in 200 mls @ 166.6 mls/hr IVPB Q12H KEESHA PRN Reason: Protocol Stop: 10/21/17 23:01 Last Admin: 10/17/17 00:00 Dose: 166.6 mls/hr Insulin Human Regular (Novolin R) 0 unit SC Q6 KEESHA PRN Reason: Protocol Last Admin: 10/17/17 06:30 Dose: Not Given Ondansetron HCl (Zofran Inj) 4 mg IVP Q4 PRN PRN Reason: nausea/vomiting Pantoprazole Sodium (Protonix Inj) 40 mg IVP DAILY [facility] Physical Exam - Constitutional Appears: Well - Head Exam Head Exam: ATRAUMATIC, NORMAL INSPECTION, NORMOCEPHALIC - Eye Exam Eye Exam: EOMI, Normal appearance, PERRL Pupil Exam: NORMAL ACCOMODATION, PERRL - ENT Exam ENT Exam: Mucous Membranes Moist, Normal Exam - Neck Exam Neck exam: Positive for: Normal Inspection - Respiratory Exam Respiratory Exam: Clear to Auscultation Bilateral, NORMAL BREATHING PATTERN - Cardiovascular Exam Cardiovascular Exam: REGULAR RHYTHM, +S1, +S2, Systolic Murmur - GI/Abdominal Exam GI & Abdominal Exam: Normal Bowel Sounds, Soft. absent: Tenderness - Extremities Exam Extremities exam: Positive for: normal inspection - Back Exam Back exam: NORMAL INSPECTION - Neurological Exam Neurological exam: Alert, CN II-XII Intact, Normal Gait, Oriented x3, Reflexes Normal - Psychiatric Exam Psychiatric exam: Normal Affect, Normal Mood - Skin Skin Exam: Dry, Intact, Normal Color, Warm Results - Vital Signs Recent Vital Signs: Last Vital Signs Temp 98.2 F 10/17/17 08:00 Pulse 66 10/17/17 07:57 Resp 12 10/17/17 07:57 BP 119/68 10/17/17 07:57 Pulse Ox 99 10/17/17 08:00 - Labs Result Diagrams: 10/17/17 06:27 10/17/17 06:27 Labs: Laboratory Results - last 24 hr 10/16/17 10/16/17 10/16/17 19:30 19:46 19:46 WBC 15.0 H RBC 5.15 Hgb 14.4 Hct 41.5 MCV 80.6 MCH 28.0 MCHC 34.8 RDW 13.6 Plt Count 213 MPV 10.7 Neut % (Auto) 46.9 L Lymph % (Auto) 40.3 H Turner % (Auto) 9.7 Eos % (Auto) 2.1 Baso % (Auto) 1.0 Neut # (Auto) 7.0 Lymph # (Auto) 6.0 H Turner # (Auto) 1.5 H Eos # (Auto) 0.3 Baso # (Auto) 0.1 PT 12.7 H INR 1.2 APTT 29 pO2 VBG pH VBG pCO2 VBG HCO3 VBG Total CO2 VBG O2 Sat (Calc) VBG Base Excess VBG Potassium Glucose Lactate Crit Value Called To Crit Value Called By Crit Value Read Back Blood Gas Notified Time Sodium Potassium Chloride Carbon Dioxide Anion Gap BUN Creatinine Est GFR ( Amer) Est GFR (Non-Af Amer) POC Glucose (mg/dL) 170 H Random Glucose Calcium Phosphorus Magnesium Total Bilirubin AST ALT Alkaline Phosphatase Total Creatine Kinase CK-MB (Mass) Troponin I NT-Pro-B Natriuret Pep Total Protein Albumin Globulin Albumin/Globulin Ratio Triglycerides Cholesterol LDL Cholesterol Direct HDL Cholesterol Lipase Free T4 TSH 3rd Generation Plasma Cortisol PM Venous Blood Potassium Urine Color Urine Clarity Urine pH Ur Specific Waldron Urine Protein Urine Glucose (UA) Urine Ketones Urine Blood Urine Nitrate Urine Bilirubin Urine Urobilinogen Ur Leukocyte Esterase Urine WBC (Auto) Urine RBC (Auto) Urine Bacteria Blood Type Antibody Screen 10/16/17 10/16/17 10/16/17 19:46 19:46 19:55 WBC RBC Hgb Hct MCV MCH MCHC RDW Plt Count MPV Neut % (Auto) Lymph % (Auto) Turner % (Auto) Eos % (Auto) Baso % (Auto) Neut # (Auto) Lymph # (Auto) Turner # (Auto) Eos # (Auto) Baso # (Auto) PT INR APTT pO2 68 H VBG pH 7.58 H VBG pCO2 19 L* VBG HCO3 23.6 VBG Total CO2 18.4 L VBG O2 Sat (Calc) 96.5 H VBG Base Excess -1.7 L VBG Potassium 2.9 L Glucose 178 H Lactate 2.6 H Crit Value Called To Er nurse Crit Value Called By Ismael roca Crit Value Read Back Y Blood Gas Notified Time 2007 Sodium 143 141.0 Potassium 3.1 L Chloride 108 H 109.0 H Carbon Dioxide 17 L Anion Gap 21 H BUN 33 H Creatinine 1.3 Est GFR ( Amer) > 60 Est GFR (Non-Af Amer) 55 POC Glucose (mg/dL) Random Glucose 179 H Calcium 9.9 Phosphorus Magnesium Total Bilirubin 0.6 AST 21 ALT 29 Alkaline Phosphatase 73 Total Creatine Kinase 93 CK-MB (Mass) 1.43 Troponin I < 0.0120 NT-Pro-B Natriuret Pep 739 Total Protein 7.3 Albumin 4.4 Globulin 2.9 Albumin/Globulin Ratio 1.5 Triglycerides 204 H Cholesterol 150 LDL Cholesterol Direct 78 HDL Cholesterol 29 L Lipase 88 Free T4 TSH 3rd Generation Plasma Cortisol PM Venous Blood Potassium 2.9 L Urine Color Urine Clarity Urine pH Ur Specific Waldron Urine Protein Urine Glucose (UA) Urine Ketones Urine Blood Urine Nitrate Urine Bilirubin Urine Urobilinogen Ur Leukocyte Esterase Urine WBC (Auto) Urine RBC (Auto) Urine Bacteria Blood Type O POSITIVE Antibody Screen Negative 10/16/17 10/16/17 10/16/17 21:48 21:48 21:48 WBC RBC Hgb Hct MCV MCH MCHC RDW Plt Count MPV Neut % (Auto) Lymph % (Auto) Turner % (Auto) Eos % (Auto) Baso % (Auto) Neut # (Auto) Lymph # (Auto) Turner # (Auto) Eos # (Auto) Baso # (Auto) PT INR APTT pO2 VBG pH VBG pCO2 VBG HCO3 VBG Total CO2 VBG O2 Sat (Calc) VBG Base Excess VBG Potassium Glucose Lactate Crit Value Called To Crit Value Called By Crit Value Read Back Blood Gas Notified Time Sodium Potassium Chloride Carbon Dioxide Anion Gap BUN Creatinine Est GFR ( Amer) Est GFR (Non-Af Amer) POC Glucose (mg/dL) Random Glucose Calcium Phosphorus Magnesium Total Bilirubin AST ALT Alkaline Phosphatase Total Creatine Kinase CK-MB (Mass) Troponin I NT-Pro-B Natriuret Pep Total Protein Albumin Globulin Albumin/Globulin Ratio Triglycerides Cholesterol LDL Cholesterol Direct HDL Cholesterol Lipase Free T4 TSH 3rd Generation 1.42 Plasma Cortisol PM 30.4 H Venous Blood Potassium Urine Color Yellow Urine Clarity Clear Urine pH 5.0 Ur Specific Waldron 1.010 Urine Protein Negative Urine Glucose (UA) 1+ H Urine Ketones Trace Urine Blood Negative Urine Nitrate Negative Urine Bilirubin Negative Urine Urobilinogen Normal Ur Leukocyte Esterase Neg Urine WBC (Auto) 1 Urine RBC (Auto) 1 Urine Bacteria Rare Blood Type Antibody Screen 10/16/17 10/16/17 10/16/17 21:54 23:30 23:42 WBC RBC Hgb Hct MCV MCH MCHC RDW Plt Count MPV Neut % (Auto) Lymph % (Auto) Turner % (Auto) Eos % (Auto) Baso % (Auto) Neut # (Auto) Lymph # (Auto) Turner # (Auto) Eos # (Auto) Baso # (Auto) PT INR APTT pO2 37 VBG pH 7.40 VBG pCO2 30 L VBG HCO3 20.3 VBG Total CO2 19.5 L VBG O2 Sat (Calc) 73.6 H VBG Base Excess -5.0 L VBG Potassium 13.3 H* Glucose 214 H Lactate 1.1 Crit Value Called To Lauri ricks auricular therapist Crit Value Called By Naomi maher rt Crit Value Read Back Y Blood Gas Notified Time 2349 Sodium 134.0 Potassium Chloride 118.0 H Carbon Dioxide Anion Gap BUN Creatinine Est GFR ( Amer) Est GFR (Non-Af Amer) POC Glucose (mg/dL) Random Glucose Calcium Phosphorus Magnesium 1.1 L Total Bilirubin AST ALT Alkaline Phosphatase Total Creatine Kinase CK-MB (Mass) Troponin I NT-Pro-B Natriuret Pep Total Protein Albumin Globulin Albumin/Globulin Ratio Triglycerides Cholesterol LDL Cholesterol Direct HDL Cholesterol Lipase Free T4 1.06 TSH 3rd Generation Plasma Cortisol PM Venous Blood Potassium 13.3 H* Urine Color Urine Clarity Urine pH Ur Specific Waldron Urine Protein Urine Glucose (UA) Urine Ketones Urine Blood Urine Nitrate Urine Bilirubin Urine Urobilinogen Ur Leukocyte Esterase Urine WBC (Auto) Urine RBC (Auto) Urine Bacteria Blood Type Antibody Screen 10/16/17 10/17/17 10/17/17 23:59 00:36 06:27 WBC 7.5 RBC 4.62 Hgb 12.9 Hct 37.5 MCV 81.1 MCH 28.0 MCHC 34.5 RDW 13.6 Plt Count 114 L D MPV 9.5 Neut % (Auto) 77.4 H Lymph % (Auto) 15.0 L Turner % (Auto) 6.5 Eos % (Auto) 0.4 Baso % (Auto) 0.7 Neut # (Auto) 5.8 Lymph # (Auto) 1.1 Turner # (Auto) 0.5 Eos # (Auto) 0.0 Baso # (Auto) 0.1 PT INR APTT pO2 VBG pH VBG pCO2 VBG HCO3 VBG Total CO2 VBG O2 Sat (Calc) VBG Base Excess VBG Potassium Glucose Lactate Crit Value Called To Crit Value Called By Crit Value Read Back Blood Gas Notified Time Sodium 144 Potassium 3.7 Chloride 110 H Carbon Dioxide 21 L Anion Gap 17 BUN 30 H Creatinine 1.1 Est GFR ( Amer) > 60 Est GFR (Non-Af Amer) > 60 POC Glucose (mg/dL) 226 H Random Glucose 222 H Calcium 9.2 Phosphorus Magnesium Total Bilirubin AST ALT Alkaline Phosphatase Total Creatine Kinase CK-MB (Mass) Troponin I NT-Pro-B Natriuret Pep Total Protein Albumin Globulin Albumin/Globulin Ratio Triglycerides Cholesterol LDL Cholesterol Direct HDL Cholesterol Lipase Free T4 TSH 3rd Generation Plasma Cortisol PM Venous Blood Potassium Urine Color Urine Clarity Urine pH Ur Specific Waldron Urine Protein Urine Glucose (UA) Urine Ketones Urine Blood Urine Nitrate Urine Bilirubin Urine Urobilinogen Ur Leukocyte Esterase Urine WBC (Auto) Urine RBC (Auto) Urine Bacteria Blood Type Antibody Screen 10/17/17 06:27 WBC RBC Hgb Hct MCV MCH MCHC RDW Plt Count MPV Neut % (Auto) Lymph % (Auto) Turner % (Auto) Eos % (Auto) Baso % (Auto) Neut # (Auto) Lymph # (Auto) Turner # (Auto) Eos # (Auto) Baso # (Auto) PT INR APTT pO2 VBG pH VBG pCO2 VBG HCO3 VBG Total CO2 VBG O2 Sat (Calc) VBG Base Excess VBG Potassium Glucose Lactate Crit Value Called To Crit Value Called By Crit Value Read Back Blood Gas Notified Time Sodium 144 Potassium 4.1 Chloride 108 H Carbon Dioxide 24 Anion Gap 16 BUN 22 H Creatinine 1.1 Est GFR ( Amer) > 60 Est GFR (Non-Af Amer) > 60 POC Glucose (mg/dL) Random Glucose 161 H Calcium 9.3 Phosphorus 3.5 Magnesium 1.9 Total Bilirubin 0.6 AST 17 ALT 26 Alkaline Phosphatase 54 Total Creatine Kinase CK-MB (Mass) Troponin I < 0.0120 NT-Pro-B Natriuret Pep Total Protein 6.8 Albumin 4.1 Globulin 2.7 Albumin/Globulin Ratio 1.5 Triglycerides Cholesterol LDL Cholesterol Direct HDL Cholesterol Lipase Free T4 TSH 3rd Generation Plasma Cortisol PM Venous Blood Potassium Urine Color Urine Clarity Urine pH Ur Specific Waldron Urine Protein Urine Glucose (UA) Urine Ketones Urine Blood Urine Nitrate Urine Bilirubin Urine Urobilinogen Ur Leukocyte Esterase Urine WBC (Auto) Urine RBC (Auto) Urine Bacteria Blood Type Antibody Screen Assessment & Plan (1) CHB (complete heart block) Assessment and Plan: etiology ? SSS will need EP evaluation Echo TSH Status: Acute (2) Dizziness Status: Acute (3) Headache Status: Acute (4) Symptomatic bradycardia Status: Acute (5) S/P AVR (aortic valve replacement) Status: Acute (6) CAD (coronary artery disease) Status: Acute
[2017-10-17] MEDS: Enoxaparin 30 mg Syringe SC SCH (09:26)
--- NOTE | 2017-10-17 10:33 | CT ---
Date of service: 10/16/2017 PROCEDURE: CT Chest without contrast HISTORY: Hypertension, hx of AVR COMPARISON: Plain radiograph from 10/16/2017 TECHNIQUE: Contiguous axial images were obtained through the chest without intravenous contrast enhancement. Sagittal and coronal reconstructions were performed. Radiation dose (DLP): 661.92 mGy-cm. This CT exam was performed using one or more of the following dose reduction techniques: Automated exposure control, adjustment of the mA and/or kV according to patient size, and/or use of iterative reconstruction technique. FINDINGS: LUNGS: There is dependent atelectasis in the posterior wall. No evidence for consolidation or mass. No endobronchial lesions. MEDIASTINUM: There is an aneurysm of the ascending aorta measuring 4.1 x 4.0 cm. There is mild cardiomegaly. There are atherosclerotic calcifications in the left anterior descending coronary artery. No pericardial effusion. No bulky mediastinal lymphadenopathy. PLEURA: No pleural fluid. No pneumothorax. BONES: No fracture. No destructive lesion. Status post median sternotomy. UPPER ABDOMEN: Grossly unremarkable. OTHER FINDINGS: There is a small sliding hiatal hernia. IMPRESSION: No acute findings periods Aneurysm of the ascending aorta measuring 4.1 x 4.0 cm. Mild cardiomegaly and atherosclerotic calcifications in the left anterior descending coronary artery. Small sliding hiatal hernia. A preliminary report was provided by [employer].
[2017-10-17] MEDS: Vancomycin 1 gm/NS 200 ml 1 GM/200 ML BAG IVPB SCH ×3 (11:07→22:26)
[2017-10-17] MEDS ORDERED: Dextrose 50% SYRINGE Inj (50 ml) IV PRN (11:14)
[2017-10-17] MEDS ORDERED: Glucagon Recombinant 1 mg Inj IM PRN (11:14)
--- NOTE | 2017-10-17 13:44 | CARD ---
APPROVED REPORT Date of service: 10/17/2017 EXAM: Two-dimensional and M-mode echocardiogram with Doppler and color Doppler. Other Information Quality : GoodRhythm : Bradycardia INDICATION Dizziness and Vertigo Surgery/Intervention Status/Post Aortic Valve Replacement: Bioprosthetic Date: 2 YRS AGO RISK FACTORS Hypertension Hyperlipidemia Diabetes 2D DIMENSIONS IVSd1.4 (0.7-1.1cm)LVDd4.3 (3.9-5.9cm) LVOT Diameter2.0 (1.8-2.4cm)PWd0.9 (0.7-1.1cm) LVDs3.5 (2.5-4.0cm)FS (%) 16.9 % LVEF (%)35.6 (>50%) M-Mode DIMENSIONS RVDd2.39 (2.1-3.2cm)Left Atrium (MM)3.87 (2.5-4.0cm) IVSd1.35 (0.7-1.1cm)Aortic Root3.10 (2.2-3.7cm) LVDd5.12 (4.0-5.6cm)Aortic Cusp Exc.1.28 (1.5-2.0cm) PWd1.27 (0.7-1.1cm)FS (%) 37 % LVDs3.23 (2.0-3.8cm)LVEF (%)36 (>50%) Aortic Valve AoV Peak Avjppooh929.8cm/sAoV VTI74.5cmAO Peak GR.39mmHg LVOT Peak Wngpqmku86.9cm/sLVOT VTI21.94cmAO Mean GR.20mmHg KARLENE (VMAX)0.16di8UET (VTI)0.12fb0AM P 1/2 [id number] Mitral Valve MV E Krqjubqb703.7cm/sMV A Pazfbltb74.7cm/sE/A ratio1.7 TDI E/Lateral E'0.0E/Medial E'0.0 Tricuspid Valve TR Peak Amkkhduc276ic/sTR Peak Gr.06byGgJGNQ93saWk LEFT VENTRICLE The left ventricle is normal size. There is mild concentric left ventricular hypertrophy. The systolic function is moderately to severely impaired. Regional wall motion abnormalities noted. RIGHT VENTRICLE The right ventricle is normal size. There is normal right ventricular wall thickness. Systolic function is borderline reduced. ATRIA The left atrium size is normal. The right atrium is borderline dilated. AORTIC VALVE There is mild aortic regurgitation. There is mild to moderate valvular aortic stenosis. There is a bioprosthetic aortic valve prosthesis. MITRAL VALVE The mitral valve is mildly thickened. There is no mitral valve stenosis. Mitral regurgitation is mild. TRICUSPID VALVE The tricuspid valve is normal in structure. There is mild tricuspid regurgitation. There is mild pulmonary hypertension. PULMONIC VALVE The pulmonary valve is normal in structure. There is no pulmonic valvular regurgitation. GREAT VESSELS The aortic root is normal in size. The IVC is dilated. PERICARDIAL EFFUSION There is no pericardial effusion. <Conclusion> The left ventricle is normal size. There is mild concentric left ventricular hypertrophy. The systolic function is moderately to severely impaired. Regional wall motion abnormalities noted. There is a bioprosthetic aortic valve prosthesis. There is a bioprosthetic aortic valve prosthesis. There is mild to moderate valvular aortic stenosis. There is mild aortic regurgitation. Mitral regurgitation is mild. There is mild tricuspid regurgitation. There is mild pulmonary hypertension.
--- NOTE | 2017-10-17 15:22 | CARD ---
APPROVED REPORT Date of service: 10/16/2017 EKG Measurement Heart [id number] <Conclusion> Sinus bradycardia with complete heart block Anterolateral infarct, age undetermined Abnormal ECG
--- NOTE | 2017-10-17 15:54 | CP.PCM.PN ---
Subjective - Date & Time of Evaluation Date of Evaluation: 10/17/17 Time of Evaluation: 08:00 - Subjective Subjective: Patient was seen earlier in the morning. At that time patient was not in any acute distress. He denied chest pain, denied palpitations, denied nausea and vomiting, and denied ever having incidences similar to this. He was found by EMS to have bradycardia as well as hypotention. He required IV dopamine overnight. There is a 12 lead EKG concerning for possible heart block as well as EKGs showing bradycardia. Objective - Vital Signs/Intake and Output Vital Signs (last 24 hours): Temp Pulse Resp BP Pulse Ox 97.8 F 93 H 12 126/70 99 10/17/17 12:00 10/17/17 15:00 10/17/17 15:00 10/17/17 14:58 10/17/17 15:00 Intake and Output: 10/17/17 10/17/17 06:59 18:59 Intake Total 1040 712.5 Output Total 1650 1075 Balance -610 -362.5 - Medications Medications: Current Medications Dextrose (Glutose 15) 15 gm PO ONCE PRN; Protocol PRN Reason: Hypoglycemia Protocol Dextrose (Dextrose 50% Inj) 0 ml IV STAT PRN; Protocol PRN Reason: Hypoglycemia Protocol Enoxaparin Sodium (Lovenox) 30 mg SC DAILY [facility] Last Admin: 10/17/17 09:26 Dose: 30 mg Glucagon (Glucagen Diagnostic Kit) 1 mg IM STAT PRN; Protocol PRN Reason: Hypoglycemia Protocol Piperacillin Sod/Tazobactam Sod (Zosyn 3.375 Gm Iv Premix) 3.375 gm in 50 mls @ 100 mls/hr IVPB Q6H KEESHA PRN Reason: Protocol Last Admin: 10/17/17 11:05 Dose: 100 mls/hr Vancomycin/Sodium Chloride (Vancomycin 1 Gm/Ns 200 Ml) 1 gm in 200 mls @ 166.6 mls/hr IVPB Q12H [facility] PRN Reason: Protocol Stop: 10/21/17 23:01 Last Admin: 10/17/17 11:07 Dose: 166.6 mls/hr Dextrose (Dextrose 5% In Water 1000 Ml) 1,000 mls @ 0 mls/hr IV .Q0M PRN; Protocol; Per Protocol PRN Reason: Hypoglycemia Protocol Insulin Human Regular (Novolin R) 0 unit SC ACHS [facility] PRN Reason: Protocol Last Admin: 10/17/17 11:46 Dose: Not Given Ondansetron HCl (Zofran Inj) 4 mg IVP Q4 PRN PRN Reason: nausea/vomiting Pantoprazole Sodium (Protonix Inj) 40 mg IVP DAILY [facility] Last Admin: 10/17/17 09:26 Dose: 40 mg - Labs Labs: 10/17/17 06:27 10/17/17 06:27 PT 12.7 SECONDS (9.7-12.2) H 10/16/17 19:46 INR 1.2 10/16/17 19:46 APTT 29 SECONDS (21-34) 10/16/17 19:46 - Constitutional Appears: No Acute Distress - Head Exam Head Exam: NORMAL INSPECTION, NORMOCEPHALIC - Eye Exam Eye Exam: EOMI, Normal appearance - ENT Exam ENT Exam: Mucous Membranes Moist - Respiratory Exam Respiratory Exam: Clear to Ausculation Bilateral, NORMAL BREATHING PATTERN - Cardiovascular Exam Cardiovascular Exam: Bradycardia - GI/Abdominal Exam GI & Abdominal Exam: Soft, Normal Bowel Sounds - Neurological Exam Neurological Exam: Alert, Awake, Oriented x3 Neuro motor strength exam: Left Upper Extremity: 5, Right Upper Extremity: 5, Left Lower Extremity: 5, Right Lower Extremity: 5 - Psychiatric Exam Psychiatric exam: Normal Affect, Normal Mood - Skin Skin Exam: Normal Color, Warm Assessment and Plan - Assessment and Plan (Free Text) Assessment: Assessment & Plan (1) Heart Block and Bradycardia Assessment and Plan: Currently on IV dopamine, will need to have transcutanous pacer pads on as a precaution in case something should happen tonight. HR on telemetry is currently on 80s and appears NSR, however there is one 12 EKG that looks like heart block. Will need EP cardiology evaluation. Avoid BB. (2) Hypotension Assessment and Plan: Currently systolic now in the 120s Plasma Cortisol: 30.4 ( WNL) TSH and Free T4: 1.42 and 1.06, respectively Troponin: Negative X1 Chest CT w/o IV contrast: No acute findings (3) Headache Assessment and Plan: Patient refused the MRI. Continue to monitor. Head CT: No hemorrhage, No edema. Opacified maxillary sinuses with periosteal thickening (Chronic sinusitis). Calcified mass in the right nasal airway. Vancomycin 1gm IV Q12H and Zosyn 3.375gm IV Q6H ( Empirical treatment for infectious etiology) (4) Nausea & vomiting Assessment and Plan: Zofran 4mg IV Q6H PRN Protonix 40mg IV daily (5) Diabetes mellitus Assessment and Plan: Accflories ISS- Low dose (6) Prophylactic measure Assessment and Plan: GI: Protonix 40mg IV daily DVT: Lovenox 30mg SC daily
--- NOTE | 2017-10-17 17:02 | CP.CCUPN ---
<Everardo Archibald - Last Filed: 10/17/17 18:24> CCU Subjective - Physician Review Subjective (Free Text): Everardo Archibald DO PGY-1, ICU progress note for Dr. Jean Pt seen and examined at bedside. Pt has no complaints at this time. No acute events overnight. He denies headache, dizziness, lightheadedness, weakness, chest pain, sob, palpitations, abdominal pain, n/v/d, numbness or tingling. Pt has been off of dopamine gtt since 9 am this morning. A 12-point ROS was reviewed and is otherwise unremarkable. CCU Objective - Vital Signs / Intake & Output Vital Signs (Last 4 hours): Vital Signs Temp Pulse Resp BP Pulse Ox 10/17/17 16:00 97.9 F 72 11 L 115/55 L 99 10/17/17 15:00 93 H 12 99 10/17/17 14:58 101 H 14 126/70 93 L 10/17/17 14:00 74 11 L 99 10/17/17 13:58 92 H 15 106/62 99 10/17/17 13:00 64 12 99 Intake and Output (Last 8hrs): Intake & Output 10/17/17 10/17/17 10/17/17 06:59 14:59 22:59 Intake Total 930 712.5 Output Total 1650 775 300 Balance -720 -62.5 -300 Weight 69.264 kg Intake: Intake, IV Amount 930 472.5 Left Antecubital 80 22.5 Right Hand 850 450 Oral 240 Output: Urine 1650 775 300 Urine, Voided 1650 775 300 Other: # Voids Urine, Voided 1 1 # Bowel Movements 0 - Physical Exam Head: Positive for: Atraumatic, Normocephalic Pupils: Positive for: PERRL Extroacular Muscles: Positive for: EOMI Mouth: Positive for: Moist Mucous Membranes Neck: Positive for: Normal Range of Motion Respiratory/Chest: Positive for: Clear to Auscultation, Good Air Exchange. Negative for: Respiratory Distress Cardiovascular: Positive for: Irregular Rhythm. Negative for: Murmurs Abdomen: Positive for: Normal Bowel Sounds. Negative for: Tenderness, Distention, Rebound Back: Positive for: Normal Inspection Upper Extremity: Positive for: Normal Inspection, NORMAL PULSES (3+ pulses in bilateral radial arteries) Lower Extremity: Positive for: Normal Inspection, NORMAL PULSES (3+ pulses in bilateral DPs) Neurological: Positive for: GCS=15 Skin: Positive for: Warm, Dry Psychiatric: Positive for: Alert, Oriented x 3, Normal Insight - Medications Active Medications: Active Medications Generic Name Dose Route Start Last Admin Trade Name Freq PRN Reason Stop Dose Admin Dextrose 15 gm 10/17/17 11:14 Glutose 15 PO ONCE PRN Hypoglycemia Protocol Protocol Dextrose 0 ml 10/17/17 11:14 Dextrose 50% Inj IV STAT PRN Hypoglycemia Protocol Protocol Enoxaparin Sodium 30 mg 10/17/17 10:00 10/17/17 09:26 Lovenox SC 30 mg DAILY KEESHA Administration Glucagon 1 mg 10/17/17 11:14 Glucagen Diagnostic Kit IM STAT PRN Hypoglycemia Protocol Protocol Piperacillin Sod/Tazobactam Sod 3.375 gm in 50 mls @ 100 mls/hr 10/16/17 23: 15 10/17/17 11:05 Zosyn 3.375 Gm Iv Premix IVPB 100 mls/hr Q6H KEESHA Administration Protocol Vancomycin/Sodium Chloride 1 gm in 200 mls @ 166.6 mls/hr 10/16/17 23:00 10/27 11:07 Vancomycin 1 Gm/Ns 200 Ml IVPB 10/21/17 23:01 166.6 mls/hr Q12H KEESHA Administration Protocol Dextrose 1,000 mls @ 0 mls/hr 10/17/17 11:14 Dextrose 5% In Water 1000 Ml IV .Q0M PRN Hypoglycemia Protocol Protocol Per Protocol Insulin Human Regular 0 unit 10/17/17 11:30 10/17/17 16:20 Novolin R SC Not Given ACHS KEESHA Protocol Ondansetron HCl 4 mg 10/16/17 23:00 Zofran Inj IVP Q4 PRN nausea/vomiting Pantoprazole Sodium 40 mg 10/17/17 10:00 10/17/17 09:26 Protonix Inj IVP 40 mg DAILY KEESHA Administration - Patient Studies Lab Studies: Lab Studies 10/17/17 10/17/17 10/17/17 Range/Units 16:17 11:44 06:32 WBC (4.8-10.8) K/uL RBC (4.40-5.90) Mil/uL Hgb (12.0-18.0) g/dL Hct (35.0-51.0) % MCV (80.0-94.0) fL MCH (27.0-31.0) pg MCHC (33.0-37.0) g/dL RDW (11.5-14.5) % Plt Count (130-400) K/uL MPV (7.2-11.7) fL Neut % (Auto) (50.0-75.0) % Lymph % (Auto) (20.0-40.0) % [place] % (Auto) (0.0-10.0) % Eos % (Auto) (0.0-4.0) % Baso % (Auto) (0.0-2.0) % Neut # (Auto) (1.8-7.0) K/uL Lymph # (Auto) (1.0-4.3) K/uL [place] # (Auto) (0.0-0.8) K/uL Eos # (Auto) (0.0-0.7) K/uL Baso # (Auto) (0.0-0.2) K/uL Differential Comment PT (9.7-12.2) SECONDS INR APTT (21-34) SECONDS pO2 (30-55) mm/Hg VBG pH (7.32-7.43) VBG pCO2 (40-60) mmHg VBG HCO3 mmol/L VBG Total CO2 (22-28) mmol/L VBG O2 Sat (Calc) (40-65) % VBG Base Excess (0.0-2.0) mmol/L VBG Potassium (3.6-5.2) mmol/L Glucose (75-110) mg/dl Lactate (0.7-2.1) mmol/L Crit Value Called To Crit Value Called By Crit Value Read Back Blood Gas Notified Time Sodium (132-148) mmol/L Potassium (3.6-5.2) mmol/L Chloride (98-107) mmol/L Carbon Dioxide (22-30) mmol/L Anion Gap (10-20) BUN (9-20) mg/dL Creatinine (0.8-1.5) mg/dL Est GFR ( Amer) Est GFR (Non-Af Amer) POC Glucose (mg/dL) 137 H 76 167 H (65-110) mg/dL Random Glucose (75-110) mg/dL Calcium (8.6-10.4) mg/dl Phosphorus (2.5-4.5) mg/dL Magnesium (1.6-2.3) mg/dL Total Bilirubin (0.2-1.3) mg/dL AST (17-59) U/L ALT (21-72) U/L Alkaline Phosphatase (38-126) U/L Total Creatine Kinase (55-170) U/L CK-MB (Mass) (0.0-3.38) ng/mL Troponin I (0.00-0.120) ng/mL NT-Pro-B Natriuret Pep (0-900) pg/mL Total Protein (6.3-8.3) g/dL Albumin (3.5-5.0) g/dL Globulin (2.2-3.9) gm/dL Albumin/Globulin Ratio (1.0-2.1) Triglycerides (0-149) mg/dL Cholesterol (0-199) mg/dL LDL Cholesterol Direct (0-129) mg/dL HDL Cholesterol (30-70) mg/dL Lipase (23-300) U/L Procalcitonin (0.19-0.49) NG/ML Free T4 (0.78-2.19) ng/dL TSH 3rd Generation (0.46-4.68) mIU/L Plasma Cortisol PM (1.7-14.1) ug/dL Venous Blood Potassium (3.6-5.2) mmol/L Urine Color (YELLOW) Urine Clarity (Clear) Urine pH (5.0-8.0) Ur Specific Foreman (1.003-1.030) Urine Protein (NEGATIVE) mg/dL Urine Glucose (UA) (Normal) mg/dL Urine Ketones (NEGATIVE) mg/dL Urine Blood (NEGATIVE) Urine Nitrate (NEGATIVE) Urine Bilirubin (NEGATIVE) Urine Urobilinogen (0.2-1.0) mg/dL Ur Leukocyte Esterase (Negative) Magi/uL Urine WBC (Auto) (0-5) /hpf Urine RBC (Auto) (0-3) /hpf Urine Bacteria (<OCC) Blood Type Antibody Screen 10/17/17 10/17/17 10/17/17 Range/Units 06:27 06:27 00:36 WBC 7.5 (4.8-10.8) K/uL RBC 4.62 (4.40-5.90) Mil/uL Hgb 12.9 (12.0-18.0) g/dL Hct 37.5 (35.0-51.0) % MCV 81.1 (80.0-94.0) fL MCH 28.0 (27.0-31.0) pg MCHC 34.5 (33.0-37.0) g/dL RDW 13.6 (11.5-14.5) % Plt Count 114 L D (130-400) K/uL MPV 9.5 (7.2-11.7) fL Neut % (Auto) 77.4 H (50.0-75.0) % Lymph % (Auto) 15.0 L (20.0-40.0) % [place] % (Auto) 6.5 (0.0-10.0) % Eos % (Auto) 0.4 (0.0-4.0) % Baso % (Auto) 0.7 (0.0-2.0) % Neut # (Auto) 5.8 (1.8-7.0) K/uL Lymph # (Auto) 1.1 (1.0-4.3) K/uL [place] # (Auto) 0.5 (0.0-0.8) K/uL Eos # (Auto) 0.0 (0.0-0.7) K/uL Baso # (Auto) 0.1 (0.0-0.2) K/uL Differential Comment PT (9.7-12.2) SECONDS INR APTT (21-34) SECONDS pO2 (30-55) mm/Hg VBG pH (7.32-7.43) VBG pCO2 (40-60) mmHg VBG HCO3 mmol/L VBG Total CO2 (22-28) mmol/L VBG O2 Sat (Calc) (40-65) % VBG Base Excess (0.0-2.0) mmol/L VBG Potassium (3.6-5.2) mmol/L Glucose (75-110) mg/dl Lactate (0.7-2.1) mmol/L Crit Value Called To Crit Value Called By Crit Value Read Back Blood Gas Notified Time Sodium 144 (132-148) mmol/L Potassium 4.1 (3.6-5.2) mmol/L Chloride 108 H (98-107) mmol/L Carbon Dioxide 24 (22-30) mmol/L Anion Gap 16 (10-20) BUN 22 H (9-20) mg/dL Creatinine 1.1 (0.8-1.5) mg/dL Est GFR ( Amer) > 60 Est GFR (Non-Af Amer) > 60 POC Glucose (mg/dL) 226 H (65-110) mg/dL Random Glucose 161 H (75-110) mg/dL Calcium 9.3 (8.6-10.4) mg/dl Phosphorus 3.5 (2.5-4.5) mg/dL Magnesium 1.9 (1.6-2.3) mg/dL Total Bilirubin 0.6 (0.2-1.3) mg/dL AST 17 (17-59) U/L ALT 26 (21-72) U/L Alkaline Phosphatase 54 (38-126) U/L Total Creatine Kinase (55-170) U/L CK-MB (Mass) (0.0-3.38) ng/mL Troponin I < 0.0120 (0.00-0.120) ng/mL NT-Pro-B Natriuret Pep (0-900) pg/mL Total Protein 6.8 (6.3-8.3) g/dL Albumin 4.1 (3.5-5.0) g/dL Globulin 2.7 (2.2-3.9) gm/dL Albumin/Globulin Ratio 1.5 (1.0-2.1) Triglycerides (0-149) mg/dL Cholesterol (0-199) mg/dL LDL Cholesterol Direct (0-129) mg/dL HDL Cholesterol (30-70) mg/dL Lipase (23-300) U/L Procalcitonin (0.19-0.49) NG/ML Free T4 (0.78-2.19) ng/dL TSH 3rd Generation (0.46-4.68) mIU/L Plasma Cortisol PM (1.7-14.1) ug/dL Venous Blood Potassium (3.6-5.2) mmol/L Urine Color (YELLOW) Urine Clarity (Clear) Urine pH (5.0-8.0) Ur Specific Foreman (1.003-1.030) Urine Protein (NEGATIVE) mg/dL Urine Glucose (UA) (Normal) mg/dL Urine Ketones (NEGATIVE) mg/dL Urine Blood (NEGATIVE) Urine Nitrate (NEGATIVE) Urine Bilirubin (NEGATIVE) Urine Urobilinogen (0.2-1.0) mg/dL Ur Leukocyte Esterase (Negative) Magi/uL Urine WBC (Auto) (0-5) /hpf Urine RBC (Auto) (0-3) /hpf Urine Bacteria (<OCC) Blood Type Antibody Screen 10/16/17 10/16/17 10/16/17 Range/Units 23:59 23:42 23:42 WBC (4.8-10.8) K/uL RBC (4.40-5.90) Mil/uL Hgb (12.0-18.0) g/dL Hct (35.0-51.0) % MCV (80.0-94.0) fL MCH (27.0-31.0) pg MCHC (33.0-37.0) g/dL RDW (11.5-14.5) % Plt Count (130-400) K/uL MPV (7.2-11.7) fL Neut % (Auto) (50.0-75.0) % Lymph % (Auto) (20.0-40.0) % [place] % (Auto) (0.0-10.0) % Eos % (Auto) (0.0-4.0) % Baso % (Auto) (0.0-2.0) % Neut # (Auto) (1.8-7.0) K/uL Lymph # (Auto) (1.0-4.3) K/uL [place] # (Auto) (0.0-0.8) K/uL Eos # (Auto) (0.0-0.7) K/uL Baso # (Auto) (0.0-0.2) K/uL Differential Comment PT (9.7-12.2) SECONDS INR APTT (21-34) SECONDS pO2 (30-55) mm/Hg VBG pH (7.32-7.43) VBG pCO2 (40-60) mmHg VBG HCO3 mmol/L VBG Total CO2 (22-28) mmol/L VBG O2 Sat (Calc) (40-65) % VBG Base Excess (0.0-2.0) mmol/L VBG Potassium (3.6-5.2) mmol/L Glucose (75-110) mg/dl Lactate (0.7-2.1) mmol/L Crit Value Called To Crit Value Called By Crit Value Read Back Blood Gas Notified Time Sodium 144 (132-148) mmol/L Potassium 3.7 (3.6-5.2) mmol/L Chloride 110 H (98-107) mmol/L Carbon Dioxide 21 L (22-30) mmol/L Anion Gap 17 (10-20) BUN 30 H (9-20) mg/dL Creatinine 1.1 (0.8-1.5) mg/dL Est GFR ( Amer) > 60 Est GFR (Non-Af Amer) > 60 POC Glucose (mg/dL) (65-110) mg/dL Random Glucose 222 H (75-110) mg/dL Calcium 9.2 (8.6-10.4) mg/dl Phosphorus (2.5-4.5) mg/dL Magnesium 1.1 L (1.6-2.3) mg/dL Total Bilirubin (0.2-1.3) mg/dL AST (17-59) U/L ALT (21-72) U/L Alkaline Phosphatase (38-126) U/L Total Creatine Kinase (55-170) U/L CK-MB (Mass) (0.0-3.38) ng/mL Troponin I (0.00-0.120) ng/mL NT-Pro-B Natriuret Pep (0-900) pg/mL Total Protein (6.3-8.3) g/dL Albumin (3.5-5.0) g/dL Globulin (2.2-3.9) gm/dL Albumin/Globulin Ratio (1.0-2.1) Triglycerides (0-149) mg/dL Cholesterol (0-199) mg/dL LDL Cholesterol Direct (0-129) mg/dL HDL Cholesterol (30-70) mg/dL Lipase (23-300) U/L Procalcitonin < 0.05 L (0.19-0.49) NG/ML Free T4 (0.78-2.19) ng/dL TSH 3rd Generation (0.46-4.68) mIU/L Plasma Cortisol PM (1.7-14.1) ug/dL Venous Blood Potassium (3.6-5.2) mmol/L Urine Color (YELLOW) Urine Clarity (Clear) Urine pH (5.0-8.0) Ur Specific Foreman (1.003-1.030) Urine Protein (NEGATIVE) mg/dL Urine Glucose (UA) (Normal) mg/dL Urine Ketones (NEGATIVE) mg/dL Urine Blood (NEGATIVE) Urine Nitrate (NEGATIVE) Urine Bilirubin (NEGATIVE) Urine Urobilinogen (0.2-1.0) mg/dL Ur Leukocyte Esterase (Negative) Magi/uL Urine WBC (Auto) (0-5) /hpf Urine RBC (Auto) (0-3) /hpf Urine Bacteria (<OCC) Blood Type Antibody Screen 10/16/17 10/16/17 10/16/17 Range/Units 23:30 21:54 21:48 WBC (4.8-10.8) K/uL RBC (4.40-5.90) Mil/uL Hgb (12.0-18.0) g/dL Hct (35.0-51.0) % MCV (80.0-94.0) fL MCH (27.0-31.0) pg MCHC (33.0-37.0) g/dL RDW (11.5-14.5) % Plt Count (130-400) K/uL MPV (7.2-11.7) fL Neut % (Auto) (50.0-75.0) % Lymph % (Auto) (20.0-40.0) % [place] % (Auto) (0.0-10.0) % Eos % (Auto) (0.0-4.0) % Baso % (Auto) (0.0-2.0) % Neut # (Auto) (1.8-7.0) K/uL Lymph # (Auto) (1.0-4.3) K/uL [place] # (Auto) (0.0-0.8) K/uL Eos # (Auto) (0.0-0.7) K/uL Baso # (Auto) (0.0-0.2) K/uL Differential Comment PT (9.7-12.2) SECONDS INR APTT (21-34) SECONDS pO2 37 (30-55) mm/Hg VBG pH 7.40 (7.32-7.43) VBG pCO2 30 L (40-60) mmHg VBG HCO3 20.3 mmol/L VBG Total CO2 19.5 L (22-28) mmol/L VBG O2 Sat (Calc) 73.6 H (40-65) % VBG Base Excess -5.0 L (0.0-2.0) mmol/L VBG Potassium 13.3 H* (3.6-5.2) mmol/L Glucose 214 H (75-110) mg/dl Lactate 1.1 (0.7-2.1) mmol/L Crit Value Called To Lauri ricks curriculum specialist Crit Value Called By Naomi maher rt Crit Value Read Back Y Blood Gas Notified Time 2349 Sodium 134.0 (132-148) mmol/L Potassium (3.6-5.2) mmol/L Chloride 118.0 H (98-107) mmol/L Carbon Dioxide (22-30) mmol/L Anion Gap (10-20) BUN (9-20) mg/dL Creatinine (0.8-1.5) mg/dL Est GFR ( Amer) Est GFR (Non-Af Amer) POC Glucose (mg/dL) (65-110) mg/dL Random Glucose (75-110) mg/dL Calcium (8.6-10.4) mg/dl Phosphorus (2.5-4.5) mg/dL Magnesium (1.6-2.3) mg/dL Total Bilirubin (0.2-1.3) mg/dL AST (17-59) U/L ALT (21-72) U/L Alkaline Phosphatase (38-126) U/L Total Creatine Kinase (55-170) U/L CK-MB (Mass) (0.0-3.38) ng/mL Troponin I (0.00-0.120) ng/mL NT-Pro-B Natriuret Pep (0-900) pg/mL Total Protein (6.3-8.3) g/dL Albumin (3.5-5.0) g/dL Globulin (2.2-3.9) gm/dL Albumin/Globulin Ratio (1.0-2.1) Triglycerides (0-149) mg/dL Cholesterol (0-199) mg/dL LDL Cholesterol Direct (0-129) mg/dL HDL Cholesterol (30-70) mg/dL Lipase (23-300) U/L Procalcitonin (0.19-0.49) NG/ML Free T4 1.06 (0.78-2.19) ng/dL TSH 3rd Generation 1.42 (0.46-4.68) mIU/L Plasma Cortisol PM (1.7-14.1) ug/dL Venous Blood Potassium 13.3 H* (3.6-5.2) mmol/L Urine Color (YELLOW) Urine Clarity (Clear) Urine pH (5.0-8.0) Ur Specific Foreman (1.003-1.030) Urine Protein (NEGATIVE) mg/dL Urine Glucose (UA) (Normal) mg/dL Urine Ketones (NEGATIVE) mg/dL Urine Blood (NEGATIVE) Urine Nitrate (NEGATIVE) Urine Bilirubin (NEGATIVE) Urine Urobilinogen (0.2-1.0) mg/dL Ur Leukocyte Esterase (Negative) Magi/uL Urine WBC (Auto) (0-5) /hpf Urine RBC (Auto) (0-3) /hpf Urine Bacteria (<OCC) Blood Type Antibody Screen 10/16/17 10/16/17 10/16/17 Range/Units 21:48 21:48 19:55 WBC (4.8-10.8) K/uL RBC (4.40-5.90) Mil/uL Hgb (12.0-18.0) g/dL Hct (35.0-51.0) % MCV (80.0-94.0) fL MCH (27.0-31.0) pg MCHC (33.0-37.0) g/dL RDW (11.5-14.5) % Plt Count (130-400) K/uL MPV (7.2-11.7) fL Neut % (Auto) (50.0-75.0) % Lymph % (Auto) (20.0-40.0) % [place] % (Auto) (0.0-10.0) % Eos % (Auto) (0.0-4.0) % Baso % (Auto) (0.0-2.0) % Neut # (Auto) (1.8-7.0) K/uL Lymph # (Auto) (1.0-4.3) K/uL [place] # (Auto) (0.0-0.8) K/uL Eos # (Auto) (0.0-0.7) K/uL Baso # (Auto) (0.0-0.2) K/uL Differential Comment PT (9.7-12.2) SECONDS INR APTT (21-34) SECONDS pO2 68 H (30-55) mm/Hg VBG pH 7.58 H (7.32-7.43) VBG pCO2 19 L* (40-60) mmHg VBG HCO3 23.6 mmol/L VBG Total CO2 18.4 L (22-28) mmol/L VBG O2 Sat (Calc) 96.5 H (40-65) % VBG Base Excess -1.7 L (0.0-2.0) mmol/L VBG Potassium 2.9 L (3.6-5.2) mmol/L Glucose 178 H (75-110) mg/dl Lactate 2.6 H (0.7-2.1) mmol/L Crit Value Called To Er nurse Crit Value Called By Ismael rt Crit Value Read Back Y Blood Gas Notified Time 2007 Sodium 141.0 (132-148) mmol/L Potassium (3.6-5.2) mmol/L Chloride 109.0 H (98-107) mmol/L Carbon Dioxide (22-30) mmol/L Anion Gap (10-20) BUN (9-20) mg/dL Creatinine (0.8-1.5) mg/dL Est GFR ( Amer) Est GFR (Non-Af Amer) POC Glucose (mg/dL) (65-110) mg/dL Random Glucose (75-110) mg/dL Calcium (8.6-10.4) mg/dl Phosphorus (2.5-4.5) mg/dL Magnesium (1.6-2.3) mg/dL Total Bilirubin (0.2-1.3) mg/dL AST (17-59) U/L ALT (21-72) U/L Alkaline Phosphatase (38-126) U/L Total Creatine Kinase (55-170) U/L CK-MB (Mass) (0.0-3.38) ng/mL Troponin I (0.00-0.120) ng/mL NT-Pro-B Natriuret Pep (0-900) pg/mL Total Protein (6.3-8.3) g/dL Albumin (3.5-5.0) g/dL Globulin (2.2-3.9) gm/dL Albumin/Globulin Ratio (1.0-2.1) Triglycerides (0-149) mg/dL Cholesterol (0-199) mg/dL LDL Cholesterol Direct (0-129) mg/dL HDL Cholesterol (30-70) mg/dL Lipase (23-300) U/L Procalcitonin (0.19-0.49) NG/ML Free T4 (0.78-2.19) ng/dL TSH 3rd Generation (0.46-4.68) mIU/L Plasma Cortisol PM 30.4 H (1.7-14.1) ug/dL Venous Blood Potassium 2.9 L (3.6-5.2) mmol/L Urine Color Yellow (YELLOW) Urine Clarity Clear (Clear) Urine pH 5.0 (5.0-8.0) Ur Specific Foreman 1.010 (1.003-1.030) Urine Protein Negative (NEGATIVE) mg/dL Urine Glucose (UA) 1+ H (Normal) mg/dL Urine Ketones Trace (NEGATIVE) mg/dL Urine Blood Negative (NEGATIVE) Urine Nitrate Negative (NEGATIVE) Urine Bilirubin Negative (NEGATIVE) Urine Urobilinogen Normal (0.2-1.0) mg/dL Ur Leukocyte Esterase Neg (Negative) Magi/uL Urine WBC (Auto) 1 (0-5) /hpf Urine RBC (Auto) 1 (0-3) /hpf Urine Bacteria Rare (<OCC) Blood Type Antibody Screen 10/16/17 10/16/17 10/16/17 Range/Units 19:46 19:46 19:46 WBC (4.8-10.8) K/uL RBC (4.40-5.90) Mil/uL Hgb (12.0-18.0) g/dL Hct (35.0-51.0) % MCV (80.0-94.0) fL MCH (27.0-31.0) pg MCHC (33.0-37.0) g/dL RDW (11.5-14.5) % Plt Count (130-400) K/uL MPV (7.2-11.7) fL Neut % (Auto) (50.0-75.0) % Lymph % (Auto) (20.0-40.0) % [place] % (Auto) (0.0-10.0) % Eos % (Auto) (0.0-4.0) % Baso % (Auto) (0.0-2.0) % Neut # (Auto) (1.8-7.0) K/uL Lymph # (Auto) (1.0-4.3) K/uL [place] # (Auto) (0.0-0.8) K/uL Eos # (Auto) (0.0-0.7) K/uL Baso # (Auto) (0.0-0.2) K/uL Differential Comment PT 12.7 H (9.7-12.2) SECONDS INR 1.2 APTT 29 (21-34) SECONDS pO2 (30-55) mm/Hg VBG pH (7.32-7.43) VBG pCO2 (40-60) mmHg VBG HCO3 mmol/L VBG Total CO2 (22-28) mmol/L VBG O2 Sat (Calc) (40-65) % VBG Base Excess (0.0-2.0) mmol/L VBG Potassium (3.6-5.2) mmol/L Glucose (75-110) mg/dl Lactate (0.7-2.1) mmol/L Crit Value Called To Crit Value Called By Crit Value Read Back Blood Gas Notified Time Sodium 143 (132-148) mmol/L Potassium 3.1 L (3.6-5.2) mmol/L Chloride 108 H (98-107) mmol/L Carbon Dioxide 17 L (22-30) mmol/L Anion Gap 21 H (10-20) BUN 33 H (9-20) mg/dL Creatinine 1.3 (0.8-1.5) mg/dL Est GFR ( Amer) > 60 Est GFR (Non-Af Amer) 55 POC Glucose (mg/dL) (65-110) mg/dL Random Glucose 179 H (75-110) mg/dL Calcium 9.9 (8.6-10.4) mg/dl Phosphorus (2.5-4.5) mg/dL Magnesium (1.6-2.3) mg/dL Total Bilirubin 0.6 (0.2-1.3) mg/dL AST 21 (17-59) U/L ALT 29 (21-72) U/L Alkaline Phosphatase 73 (38-126) U/L Total Creatine Kinase 93 (55-170) U/L CK-MB (Mass) 1.43 (0.0-3.38) ng/mL Troponin I < 0.0120 (0.00-0.120) ng/mL NT-Pro-B Natriuret Pep 739 (0-900) pg/mL Total Protein 7.3 (6.3-8.3) g/dL Albumin 4.4 (3.5-5.0) g/dL Globulin 2.9 (2.2-3.9) gm/dL Albumin/Globulin Ratio 1.5 (1.0-2.1) Triglycerides 204 H (0-149) mg/dL Cholesterol 150 (0-199) mg/dL LDL Cholesterol Direct 78 (0-129) mg/dL HDL Cholesterol 29 L (30-70) mg/dL Lipase 88 (23-300) U/L Procalcitonin (0.19-0.49) NG/ML Free T4 (0.78-2.19) ng/dL TSH 3rd Generation (0.46-4.68) mIU/L Plasma Cortisol PM (1.7-14.1) ug/dL Venous Blood Potassium (3.6-5.2) mmol/L Urine Color (YELLOW) Urine Clarity (Clear) Urine pH (5.0-8.0) Ur Specific Foreman (1.003-1.030) Urine Protein (NEGATIVE) mg/dL Urine Glucose (UA) (Normal) mg/dL Urine Ketones (NEGATIVE) mg/dL Urine Blood (NEGATIVE) Urine Nitrate (NEGATIVE) Urine Bilirubin (NEGATIVE) Urine Urobilinogen (0.2-1.0) mg/dL Ur Leukocyte Esterase (Negative) Magi/uL Urine WBC (Auto) (0-5) /hpf Urine RBC (Auto) (0-3) /hpf Urine Bacteria (<OCC) Blood Type O POSITIVE Antibody Screen Negative 10/16/17 10/16/17 Range/Units 19:46 19:30 WBC 15.0 H (4.8-10.8) K/uL RBC 5.15 (4.40-5.90) Mil/uL Hgb 14.4 (12.0-18.0) g/dL Hct 41.5 (35.0-51.0) % MCV 80.6 (80.0-94.0) fL MCH 28.0 (27.0-31.0) pg MCHC 34.8 (33.0-37.0) g/dL RDW 13.6 (11.5-14.5) % Plt Count 213 (130-400) K/uL MPV 10.7 (7.2-11.7) fL Neut % (Auto) 46.9 L (50.0-75.0) % Lymph % (Auto) 40.3 H (20.0-40.0) % Rapides % (Auto) 9.7 (0.0-10.0) % Eos % (Auto) 2.1 (0.0-4.0) % Baso % (Auto) 1.0 (0.0-2.0) % Neut # (Auto) 7.0 (1.8-7.0) K/uL Lymph # (Auto) 6.0 H (1.0-4.3) K/uL Rapides # (Auto) 1.5 H (0.0-0.8) K/uL Eos # (Auto) 0.3 (0.0-0.7) K/uL Baso # (Auto) 0.1 (0.0-0.2) K/uL Differential Comment PT (9.7-12.2) SECONDS INR APTT (21-34) SECONDS pO2 (30-55) mm/Hg VBG pH (7.32-7.43) VBG pCO2 (40-60) mmHg VBG HCO3 mmol/L VBG Total CO2 (22-28) mmol/L VBG O2 Sat (Calc) (40-65) % VBG Base Excess (0.0-2.0) mmol/L VBG Potassium (3.6-5.2) mmol/L Glucose (75-110) mg/dl Lactate (0.7-2.1) mmol/L Crit Value Called To Crit Value Called By Crit Value Read Back Blood Gas Notified Time Sodium (132-148) mmol/L Potassium (3.6-5.2) mmol/L Chloride (98-107) mmol/L Carbon Dioxide (22-30) mmol/L Anion Gap (10-20) BUN (9-20) mg/dL Creatinine (0.8-1.5) mg/dL Est GFR ( Amer) Est GFR (Non-Af Amer) POC Glucose (mg/dL) 170 H (65-110) mg/dL Random Glucose (75-110) mg/dL Calcium (8.6-10.4) mg/dl Phosphorus (2.5-4.5) mg/dL Magnesium (1.6-2.3) mg/dL Total Bilirubin (0.2-1.3) mg/dL AST (17-59) U/L ALT (21-72) U/L Alkaline Phosphatase (38-126) U/L Total Creatine Kinase (55-170) U/L CK-MB (Mass) (0.0-3.38) ng/mL Troponin I (0.00-0.120) ng/mL NT-Pro-B Natriuret Pep (0-900) pg/mL Total Protein (6.3-8.3) g/dL Albumin (3.5-5.0) g/dL Globulin (2.2-3.9) gm/dL Albumin/Globulin Ratio (1.0-2.1) Triglycerides (0-149) mg/dL Cholesterol (0-199) mg/dL LDL Cholesterol Direct (0-129) mg/dL HDL Cholesterol (30-70) mg/dL Lipase (23-300) U/L Procalcitonin (0.19-0.49) NG/ML Free T4 (0.78-2.19) ng/dL TSH 3rd Generation (0.46-4.68) mIU/L Plasma Cortisol PM (1.7-14.1) ug/dL Venous Blood Potassium (3.6-5.2) mmol/L Urine Color (YELLOW) Urine Clarity (Clear) Urine pH (5.0-8.0) Ur Specific Foreman (1.003-1.030) Urine Protein (NEGATIVE) mg/dL Urine Glucose (UA) (Normal) mg/dL Urine Ketones (NEGATIVE) mg/dL Urine Blood (NEGATIVE) Urine Nitrate (NEGATIVE) Urine Bilirubin (NEGATIVE) Urine Urobilinogen (0.2-1.0) mg/dL Ur Leukocyte Esterase (Negative) Magi/uL Urine WBC (Auto) (0-5) /hpf Urine RBC (Auto) (0-3) /hpf Urine Bacteria (<OCC) Blood Type Antibody Screen Laboratory Results - last 24 hr 10/16/17 10/16/17 10/16/17 19:30 19:46 19:46 WBC 15.0 H RBC 5.15 Hgb 14.4 Hct 41.5 MCV 80.6 MCH 28.0 MCHC 34.8 RDW 13.6 Plt Count 213 MPV 10.7 Neut % (Auto) 46.9 L Lymph % (Auto) 40.3 H Rapides % (Auto) 9.7 Eos % (Auto) 2.1 Baso % (Auto) 1.0 Neut # (Auto) 7.0 Lymph # (Auto) 6.0 H [place] # (Auto) 1.5 H Eos # (Auto) 0.3 Baso # (Auto) 0.1 Differential Comment PT 12.7 H INR 1.2 APTT 29 pO2 VBG pH VBG pCO2 VBG HCO3 VBG Total CO2 VBG O2 Sat (Calc) VBG Base Excess VBG Potassium Glucose Lactate Crit Value Called To Crit Value Called By Crit Value Read Back Blood Gas Notified Time Sodium Potassium Chloride Carbon Dioxide Anion Gap BUN Creatinine Est GFR ( Amer) Est GFR (Non-Af Amer) POC Glucose (mg/dL) 170 H Random Glucose Calcium Phosphorus Magnesium Total Bilirubin AST ALT Alkaline Phosphatase Total Creatine Kinase CK-MB (Mass) Troponin I NT-Pro-B Natriuret Pep Total Protein Albumin Globulin Albumin/Globulin Ratio Triglycerides Cholesterol LDL Cholesterol Direct HDL Cholesterol Lipase Procalcitonin Free T4 TSH 3rd Generation Plasma Cortisol PM Venous Blood Potassium Urine Color Urine Clarity Urine pH Ur Specific Foreman Urine Protein Urine Glucose (UA) Urine Ketones Urine Blood Urine Nitrate Urine Bilirubin Urine Urobilinogen Ur Leukocyte Esterase Urine WBC (Auto) Urine RBC (Auto) Urine Bacteria Blood Type Antibody Screen 10/16/17 10/16/17 10/16/17 19:46 19:46 19:55 WBC RBC Hgb Hct MCV MCH MCHC RDW Plt Count MPV Neut % (Auto) Lymph % (Auto) [place]ides % (Auto) Eos % (Auto) Baso % (Auto) Neut # (Auto) Lymph # (Auto) [place] # (Auto) Eos # (Auto) Baso # (Auto) Differential Comment PT INR APTT pO2 68 H VBG pH 7.58 H VBG pCO2 19 L* VBG HCO3 23.6 VBG Total CO2 18.4 L VBG O2 Sat (Calc) 96.5 H VBG Base Excess -1.7 L VBG Potassium 2.9 L Glucose 178 H Lactate 2.6 H Crit Value Called To Er nurse Crit Value Called By Ismael rt Crit Value Read Back Y Blood Gas Notified Time 2007 Sodium 143 141.0 Potassium 3.1 L Chloride 108 H 109.0 H Carbon Dioxide 17 L Anion Gap 21 H BUN 33 H Creatinine 1.3 Est GFR ( Amer) > 60 Est GFR (Non-Af Amer) 55 POC Glucose (mg/dL) Random Glucose 179 H Calcium 9.9 Phosphorus Magnesium Total Bilirubin 0.6 AST 21 ALT 29 Alkaline Phosphatase 73 Total Creatine Kinase 93 CK-MB (Mass) 1.43 Troponin I < 0.0120 NT-Pro-B Natriuret Pep 739 Total Protein 7.3 Albumin 4.4 Globulin 2.9 Albumin/Globulin Ratio 1.5 Triglycerides 204 H Cholesterol 150 LDL Cholesterol Direct 78 HDL Cholesterol 29 L Lipase 88 Procalcitonin Free T4 TSH 3rd Generation Plasma Cortisol PM Venous Blood Potassium 2.9 L Urine Color Urine Clarity Urine pH Ur Specific Foreman Urine Protein Urine Glucose (UA) Urine Ketones Urine Blood Urine Nitrate Urine Bilirubin Urine Urobilinogen Ur Leukocyte Esterase Urine WBC (Auto) Urine RBC (Auto) Urine Bacteria Blood Type O POSITIVE Antibody Screen Negative 10/16/17 10/16/17 10/16/17 21:48 21:48 21:48 WBC RBC Hgb Hct MCV MCH MCHC RDW Plt Count MPV Neut % (Auto) Lymph % (Auto) [place] % (Auto) Eos % (Auto) Baso % (Auto) Neut # (Auto) Lymph # (Auto) [place] # (Auto) Eos # (Auto) Baso # (Auto) Differential Comment PT INR APTT pO2 VBG pH VBG pCO2 VBG HCO3 VBG Total CO2 VBG O2 Sat (Calc) VBG Base Excess VBG Potassium Glucose Lactate Crit Value Called To Crit Value Called By Crit Value Read Back Blood Gas Notified Time Sodium Potassium Chloride Carbon Dioxide Anion Gap BUN Creatinine Est GFR ( Amer) Est GFR (Non-Af Amer) POC Glucose (mg/dL) Random Glucose Calcium Phosphorus Magnesium Total Bilirubin AST ALT Alkaline Phosphatase Total Creatine Kinase CK-MB (Mass) Troponin I NT-Pro-B Natriuret Pep Total Protein Albumin Globulin Albumin/Globulin Ratio Triglycerides Cholesterol LDL Cholesterol Direct HDL Cholesterol Lipase Procalcitonin Free T4 TSH 3rd Generation 1.42 Plasma Cortisol PM 30.4 H Venous Blood Potassium Urine Color Yellow Urine Clarity Clear Urine pH 5.0 Ur Specific Foreman 1.010 Urine Protein Negative Urine Glucose (UA) 1+ H Urine Ketones Trace Urine Blood Negative Urine Nitrate Negative Urine Bilirubin Negative Urine Urobilinogen Normal Ur Leukocyte Esterase Neg Urine WBC (Auto) 1 Urine RBC (Auto) 1 Urine Bacteria Rare Blood Type Antibody Screen 10/16/17 10/16/17 10/16/17 21:54 23:30 23:42 WBC RBC Hgb Hct MCV MCH MCHC RDW Plt Count MPV Neut % (Auto) Lymph % (Auto) [place] % (Auto) Eos % (Auto) Baso % (Auto) Neut # (Auto) Lymph # (Auto) [place] # (Auto) Eos # (Auto) Baso # (Auto) Differential Comment PT INR APTT pO2 37 VBG pH 7.40 VBG pCO2 30 L VBG HCO3 20.3 VBG Total CO2 19.5 L VBG O2 Sat (Calc) 73.6 H VBG Base Excess -5.0 L VBG Potassium 13.3 H* Glucose 214 H Lactate 1.1 Crit Value Called To Lauri ricks curriculum specialist Crit Value Called By Naomi maher rt Crit Value Read Back Y Blood Gas Notified Time 2349 Sodium 134.0 Potassium Chloride 118.0 H Carbon Dioxide Anion Gap BUN Creatinine Est GFR ( Amer) Est GFR (Non-Af Amer) POC Glucose (mg/dL) Random Glucose Calcium Phosphorus Magnesium Total Bilirubin AST ALT Alkaline Phosphatase Total Creatine Kinase CK-MB (Mass) Troponin I NT-Pro-B Natriuret Pep Total Protein Albumin Globulin Albumin/Globulin Ratio Triglycerides Cholesterol LDL Cholesterol Direct HDL Cholesterol Lipase Procalcitonin < 0.05 L Free T4 1.06 TSH 3rd Generation Plasma Cortisol PM Venous Blood Potassium 13.3 H* Urine Color Urine Clarity Urine pH Ur Specific Foreman Urine Protein Urine Glucose (UA) Urine Ketones Urine Blood Urine Nitrate Urine Bilirubin Urine Urobilinogen Ur Leukocyte Esterase Urine WBC (Auto) Urine RBC (Auto) Urine Bacteria Blood Type Antibody Screen 10/16/17 10/16/17 10/17/17 23:42 23:59 00:36 WBC RBC Hgb Hct MCV MCH MCHC RDW Plt Count MPV Neut % (Auto) Lymph % (Auto) [place] % (Auto) Eos % (Auto) Baso % (Auto) Neut # (Auto) Lymph # (Auto) [place] # (Auto) Eos # (Auto) Baso # (Auto) Differential Comment PT INR APTT pO2 VBG pH VBG pCO2 VBG HCO3 VBG Total CO2 VBG O2 Sat (Calc) VBG Base Excess VBG Potassium Glucose Lactate Crit Value Called To Crit Value Called By Crit Value Read Back Blood Gas Notified Time Sodium 144 Potassium 3.7 Chloride 110 H Carbon Dioxide 21 L Anion Gap 17 BUN 30 H Creatinine 1.1 Est GFR ( Amer) > 60 Est GFR (Non-Af Amer) > 60 POC Glucose (mg/dL) 226 H Random Glucose 222 H Calcium 9.2 Phosphorus Magnesium 1.1 L Total Bilirubin AST ALT Alkaline Phosphatase Total Creatine Kinase CK-MB (Mass) Troponin I NT-Pro-B Natriuret Pep Total Protein Albumin Globulin Albumin/Globulin Ratio Triglycerides Cholesterol LDL Cholesterol Direct HDL Cholesterol Lipase Procalcitonin Free T4 TSH 3rd Generation Plasma Cortisol PM Venous Blood Potassium Urine Color Urine Clarity Urine pH Ur Specific Foreman Urine Protein Urine Glucose (UA) Urine Ketones Urine Blood Urine Nitrate Urine Bilirubin Urine Urobilinogen Ur Leukocyte Esterase Urine WBC (Auto) Urine RBC (Auto) Urine Bacteria Blood Type Antibody Screen 10/17/17 10/17/17 10/17/17 06:27 06:27 06:32 WBC 7.5 RBC 4.62 Hgb 12.9 Hct 37.5 MCV 81.1 MCH 28.0 MCHC 34.5 RDW 13.6 Plt Count 114 L D MPV 9.5 Neut % (Auto) 77.4 H Lymph % (Auto) 15.0 L [place] % (Auto) 6.5 Eos % (Auto) 0.4 Baso % (Auto) 0.7 Neut # (Auto) 5.8 Lymph # (Auto) 1.1 [place] # (Auto) 0.5 Eos # (Auto) 0.0 Baso # (Auto) 0.1 Differential Comment PT INR APTT pO2 VBG pH VBG pCO2 VBG HCO3 VBG Total CO2 VBG O2 Sat (Calc) VBG Base Excess VBG Potassium Glucose Lactate Crit Value Called To Crit Value Called By Crit Value Read Back Blood Gas Notified Time Sodium 144 Potassium 4.1 Chloride 108 H Carbon Dioxide 24 Anion Gap 16 BUN 22 H Creatinine 1.1 Est GFR ( Amer) > 60 Est GFR (Non-Af Amer) > 60 POC Glucose (mg/dL) 167 H Random Glucose 161 H Calcium 9.3 Phosphorus 3.5 Magnesium 1.9 Total Bilirubin 0.6 AST 17 ALT 26 Alkaline Phosphatase 54 Total Creatine Kinase CK-MB (Mass) Troponin I < 0.0120 NT-Pro-B Natriuret Pep Total Protein 6.8 Albumin 4.1 Globulin 2.7 Albumin/Globulin Ratio 1.5 Triglycerides Cholesterol LDL Cholesterol Direct HDL Cholesterol Lipase Procalcitonin Free T4 TSH 3rd Generation Plasma Cortisol PM Venous Blood Potassium Urine Color Urine Clarity Urine pH Ur Specific Foreman Urine Protein Urine Glucose (UA) Urine Ketones Urine Blood Urine Nitrate Urine Bilirubin Urine Urobilinogen Ur Leukocyte Esterase Urine WBC (Auto) Urine RBC (Auto) Urine Bacteria Blood Type Antibody Screen 10/17/17 10/17/17 11:44 16:17 WBC RBC Hgb Hct MCV MCH MCHC RDW Plt Count MPV Neut % (Auto) Lymph % (Auto) [place] % (Auto) Eos % (Auto) Baso % (Auto) Neut # (Auto) Lymph # (Auto) [place] # (Auto) Eos # (Auto) Baso # (Auto) Differential Comment PT INR APTT pO2 VBG pH VBG pCO2 VBG HCO3 VBG Total CO2 VBG O2 Sat (Calc) VBG Base Excess VBG Potassium Glucose Lactate Crit Value Called To Crit Value Called By Crit Value Read Back Blood Gas Notified Time Sodium Potassium Chloride Carbon Dioxide Anion Gap BUN Creatinine Est GFR ( Amer) Est GFR (Non-Af Amer) POC Glucose (mg/dL) 76 137 H Random Glucose Calcium Phosphorus Magnesium Total Bilirubin AST ALT Alkaline Phosphatase Total Creatine Kinase CK-MB (Mass) Troponin I NT-Pro-B Natriuret Pep Total Protein Albumin Globulin Albumin/Globulin Ratio Triglycerides Cholesterol LDL Cholesterol Direct HDL Cholesterol Lipase Procalcitonin Free T4 TSH 3rd Generation Plasma Cortisol PM Venous Blood Potassium Urine Color Urine Clarity Urine pH Ur Specific Foreman Urine Protein Urine Glucose (UA) Urine Ketones Urine Blood Urine Nitrate Urine Bilirubin Urine Urobilinogen Ur Leukocyte Esterase Urine WBC (Auto) Urine RBC (Auto) Urine Bacteria Blood Type Antibody Screen EKG/Cardiology Studies: Cardiology / EKG Studies 10/16/17 19:39 ELECTROCARDIOGRAM Stat Comment: bed 12 Mode Of Transportation: BED Reason For Exam: cp 10/16/17 20:21 EKG [ELECTROCARDIOGRAM] Routine Comment: Mode Of Transportation: PORTABLE Reason For Exam: bradycardia 10/17/17 07:00 EKG [ELECTROCARDIOGRAM] Routine Comment: Mode Of Transportation: BED Reason For Exam: bradycardia EKG [ELECTROCARDIOGRAM] Routine Comment: Mode Of Transportation: PORTABLE Reason For Exam: bradycardia Fingerstick Blood Sugar Results: 137 Review of Systems - Review of Systems All systems: reviewed and no additional remarkable complaints except (as per HPI ) Critical Care Progress Note - Prophylaxis GI Prophylaxis GI: PPI - Prophylaxis DVT Prophylaxis DVT: Lovenox - Nutrition Nutrition: Nutrition Category Date Time Status Heart Healthy Diet [DIET] Diets 10/17/17 Breakfast Active Assessment/Plan - Assessment and Plan (Free Text) Assessment: This is a 67 y/o male with HTN, DM, aortic valve replacement (2 years ago) admitted with bradycardia, hypotension and hypothermia, respiratory alkalosis. r/o sepsis / ?cardiac eitiology initial troponin normal IV antibiotics Plan: Neuro: - monitor for mental status changes - pt is aaox3 at baseline - Head CT (10/16) shows left basal ganglia lacunar infarct, chronic changes (see full report). Brain MRI suggested. - pt is refusing brain MRI due to clausterphobia Cardio: - Chest CT (10/16) shows no acute findings (see report) - echocardiogram (10/17) shows LVEF of 35.6%, mild concentric LVH, moderately to severely impaired systolic function, regional wall motion abnormalities, bioprosthetic aortic valve, mild to moderate valvular aortic stenosis, mild AR, mild TR, mild pulmonary htn. - cardiology consulted, recs appreciated - EP eval pending - maintain MAP>65 mmHg - EKG shows sinus bradycardia with PVCs - dopamine gtt has been discontinued; pt is hemodynamically stable Pulm: - maintain spo2>95% - CXR (10/16) shows cardiomegaly without pulmonary vascular congestion. No acute pulmonary disease. GI: - HHD - zofran prn nausea - protonix for pud ppx ID: - leukocytosis has resolved - continue abx Renal: - BUN/Cr is stable - maintain euvolemia - replete electrolytes as needed Heme: - H/h is stable Endo: - maintain euglycemia - accucheck ACHS - ISS low ACHS PPX: protonix for pud; lovenox for vte Dispo: Continue to monitor in the ICU Case reviewed and discussed with attending physician, Dr. Jean. <Magdy Jean - Last Filed: 10/17/17 18:47> CCU Objective - Vital Signs / Intake & Output Vital Signs (Last 4 hours): Vital Signs Temp Pulse Resp BP Pulse Ox 10/17/17 18:00 107 H 13 99 10/17/17 17:57 86 14 117/61 98 10/17/17 17:00 73 14 98 10/17/17 16:57 102 H 15 121/78 96 10/17/17 16:00 97.9 F 72 11 L 115/55 L 99 10/17/17 15:00 93 H 12 99 10/17/17 14:58 101 H 14 126/70 93 L Intake and Output (Last 8hrs): Intake & Output 10/17/17 10/17/17 10/17/17 06:59 14:59 22:59 Intake Total 930 712.5 650 Output Total 1650 775 700 Balance -720 -62.5 -50 Weight 152 lb 11.2 oz Intake: Intake, IV Amount 930 472.5 50 Left Antecubital 80 22.5 Right Hand 850 450 50 Oral 240 600 Output: Urine 1650 775 700 Urine, Voided 1650 775 700 Other: # Voids Urine, Voided 1 1 # Bowel Movements 0 - Medications Active Medications: Active Medications Generic Name Dose Route Start Last Admin Trade Name Freq PRN Reason Stop Dose Admin Dextrose 15 gm 10/17/17 11:14 Glutose 15 PO ONCE PRN Hypoglycemia Protocol Protocol Dextrose 0 ml 10/17/17 11:14 Dextrose 50% Inj IV STAT PRN Hypoglycemia Protocol Protocol Enoxaparin Sodium 30 mg 10/17/17 10:00 10/17/17 09:26 Lovenox SC 30 mg DAILY KEESHA Administration Glucagon 1 mg 10/17/17 11:14 Glucagen Diagnostic Kit IM STAT PRN Hypoglycemia Protocol Protocol Piperacillin Sod/Tazobactam Sod 3.375 gm in 50 mls @ 100 mls/hr 10/16/17 23: 15 10/17/17 17:08 Zosyn 3.375 Gm Iv Premix IVPB 100 mls/hr Q6H KEESHA Administration Protocol Vancomycin/Sodium Chloride 1 gm in 200 mls @ 166.6 mls/hr 10/16/17 23:00 10/27 11:07 Vancomycin 1 Gm/Ns 200 Ml IVPB 10/21/17 23:01 166.6 mls/hr Q12H KEESHA Administration Protocol Dextrose 1,000 mls @ 0 mls/hr 10/17/17 11:14 Dextrose 5% In Water 1000 Ml IV .Q0M PRN Hypoglycemia Protocol Protocol Per Protocol Insulin Human Regular 0 unit 10/17/17 11:30 10/17/17 16:20 Novolin R SC Not Given ACHS KEESHA Protocol Ondansetron HCl 4 mg 10/16/17 23:00 Zofran Inj IVP Q4 PRN nausea/vomiting Pantoprazole Sodium 40 mg 10/17/17 10:00 10/17/17 09:26 Protonix Inj IVP 40 mg DAILY KEESHA Administration - Patient Studies Lab Studies: Lab Studies 10/17/17 10/17/17 10/17/17 Range/Units 16:17 11:44 06:32 WBC (4.8-10.8) K/uL RBC (4.40-5.90) Mil/uL Hgb (12.0-18.0) g/dL Hct (35.0-51.0) % MCV (80.0-94.0) fL MCH (27.0-31.0) pg MCHC (33.0-37.0) g/dL RDW (11.5-14.5) % Plt Count (130-400) K/uL MPV (7.2-11.7) fL Neut % (Auto) (50.0-75.0) % Lymph % (Auto) (20.0-40.0) % [place] % (Auto) (0.0-10.0) % Eos % (Auto) (0.0-4.0) % Baso % (Auto) (0.0-2.0) % Neut # (Auto) (1.8-7.0) K/uL Lymph # (Auto) (1.0-4.3) K/uL [place] # (Auto) (0.0-0.8) K/uL Eos # (Auto) (0.0-0.7) K/uL Baso # (Auto) (0.0-0.2) K/uL Differential Comment PT (9.7-12.2) SECONDS INR APTT (21-34) SECONDS pO2 (30-55) mm/Hg VBG pH (7.32-7.43) VBG pCO2 (40-60) mmHg VBG HCO3 mmol/L VBG Total CO2 (22-28) mmol/L VBG O2 Sat (Calc) (40-65) % VBG Base Excess (0.0-2.0) mmol/L VBG Potassium (3.6-5.2) mmol/L Glucose (75-110) mg/dl Lactate (0.7-2.1) mmol/L Crit Value Called To Crit Value Called By Crit Value Read Back Blood Gas Notified Time Sodium (132-148) mmol/L Potassium (3.6-5.2) mmol/L Chloride (98-107) mmol/L Carbon Dioxide (22-30) mmol/L Anion Gap (10-20) BUN (9-20) mg/dL Creatinine (0.8-1.5) mg/dL Est GFR ( Amer) Est GFR (Non-Af Amer) POC Glucose (mg/dL) 137 H 76 167 H (65-110) mg/dL Random Glucose (75-110) mg/dL Calcium (8.6-10.4) mg/dl Phosphorus (2.5-4.5) mg/dL Magnesium (1.6-2.3) mg/dL Total Bilirubin (0.2-1.3) mg/dL AST (17-59) U/L ALT (21-72) U/L Alkaline Phosphatase (38-126) U/L Total Creatine Kinase (55-170) U/L CK-MB (Mass) (0.0-3.38) ng/mL Troponin I (0.00-0.120) ng/mL NT-Pro-B Natriuret Pep (0-900) pg/mL Total Protein (6.3-8.3) g/dL Albumin (3.5-5.0) g/dL Globulin (2.2-3.9) gm/dL Albumin/Globulin Ratio (1.0-2.1) Triglycerides (0-149) mg/dL Cholesterol (0-199) mg/dL LDL Cholesterol Direct (0-129) mg/dL HDL Cholesterol (30-70) mg/dL Lipase (23-300) U/L Procalcitonin (0.19-0.49) NG/ML Free T4 (0.78-2.19) ng/dL TSH 3rd Generation (0.46-4.68) mIU/L Plasma Cortisol PM (1.7-14.1) ug/dL Venous Blood Potassium (3.6-5.2) mmol/L Urine Color (YELLOW) Urine Clarity (Clear) Urine pH (5.0-8.0) Ur Specific Foreman (1.003-1.030) Urine Protein (NEGATIVE) mg/dL Urine Glucose (UA) (Normal) mg/dL Urine Ketones (NEGATIVE) mg/dL Urine Blood (NEGATIVE) Urine Nitrate (NEGATIVE) Urine Bilirubin (NEGATIVE) Urine Urobilinogen (0.2-1.0) mg/dL Ur Leukocyte Esterase (Negative) Magi/uL Urine WBC (Auto) (0-5) /hpf Urine RBC (Auto) (0-3) /hpf Urine Bacteria (<OCC) Blood Type Antibody Screen 10/17/17 10/17/17 10/17/17 Range/Units 06:27 06:27 00:36 WBC 7.5 (4.8-10.8) K/uL RBC 4.62 (4.40-5.90) Mil/uL Hgb 12.9 (12.0-18.0) g/dL Hct 37.5 (35.0-51.0) % MCV 81.1 (80.0-94.0) fL MCH 28.0 (27.0-31.0) pg MCHC 34.5 (33.0-37.0) g/dL RDW 13.6 (11.5-14.5) % Plt Count 114 L D (130-400) K/uL MPV 9.5 (7.2-11.7) fL Neut % (Auto) 77.4 H (50.0-75.0) % Lymph % (Auto) 15.0 L (20.0-40.0) % [place] % (Auto) 6.5 (0.0-10.0) % Eos % (Auto) 0.4 (0.0-4.0) % Baso % (Auto) 0.7 (0.0-2.0) % Neut # (Auto) 5.8 (1.8-7.0) K/uL Lymph # (Auto) 1.1 (1.0-4.3) K/uL [place] # (Auto) 0.5 (0.0-0.8) K/uL Eos # (Auto) 0.0 (0.0-0.7) K/uL Baso # (Auto) 0.1 (0.0-0.2) K/uL Differential Comment PT (9.7-12.2) SECONDS INR APTT (21-34) SECONDS pO2 (30-55) mm/Hg VBG pH (7.32-7.43) VBG pCO2 (40-60) mmHg VBG HCO3 mmol/L VBG Total CO2 (22-28) mmol/L VBG O2 Sat (Calc) (40-65) % VBG Base Excess (0.0-2.0) mmol/L VBG Potassium (3.6-5.2) mmol/L Glucose (75-110) mg/dl Lactate (0.7-2.1) mmol/L Crit Value Called To Crit Value Called By Crit Value Read Back Blood Gas Notified Time Sodium 144 (132-148) mmol/L Potassium 4.1 (3.6-5.2) mmol/L Chloride 108 H (98-107) mmol/L Carbon Dioxide 24 (22-30) mmol/L Anion Gap 16 (10-20) BUN 22 H (9-20) mg/dL Creatinine 1.1 (0.8-1.5) mg/dL Est GFR ( Amer) > 60 Est GFR (Non-Af Amer) > 60 POC Glucose (mg/dL) 226 H (65-110) mg/dL Random Glucose 161 H (75-110) mg/dL Calcium 9.3 (8.6-10.4) mg/dl Phosphorus 3.5 (2.5-4.5) mg/dL Magnesium 1.9 (1.6-2.3) mg/dL Total Bilirubin 0.6 (0.2-1.3) mg/dL AST 17 (17-59) U/L ALT 26 (21-72) U/L Alkaline Phosphatase 54 (38-126) U/L Total Creatine Kinase (55-170) U/L CK-MB (Mass) (0.0-3.38) ng/mL Troponin I < 0.0120 (0.00-0.120) ng/mL NT-Pro-B Natriuret Pep (0-900) pg/mL Total Protein 6.8 (6.3-8.3) g/dL Albumin 4.1 (3.5-5.0) g/dL Globulin 2.7 (2.2-3.9) gm/dL Albumin/Globulin Ratio 1.5 (1.0-2.1) Triglycerides (0-149) mg/dL Cholesterol (0-199) mg/dL LDL Cholesterol Direct (0-129) mg/dL HDL Cholesterol (30-70) mg/dL Lipase (23-300) U/L Procalcitonin (0.19-0.49) NG/ML Free T4 (0.78-2.19) ng/dL TSH 3rd Generation (0.46-4.68) mIU/L Plasma Cortisol PM (1.7-14.1) ug/dL Venous Blood Potassium (3.6-5.2) mmol/L Urine Color (YELLOW) Urine Clarity (Clear) Urine pH (5.0-8.0) Ur Specific Foreman (1.003-1.030) Urine Protein (NEGATIVE) mg/dL Urine Glucose (UA) (Normal) mg/dL Urine Ketones (NEGATIVE) mg/dL Urine Blood (NEGATIVE) Urine Nitrate (NEGATIVE) Urine Bilirubin (NEGATIVE) Urine Urobilinogen (0.2-1.0) mg/dL Ur Leukocyte Esterase (Negative) Magi/uL Urine WBC (Auto) (0-5) /hpf Urine RBC (Auto) (0-3) /hpf Urine Bacteria (<OCC) Blood Type Antibody Screen 10/16/17 10/16/17 10/16/17 Range/Units 23:59 23:42 23:42 WBC (4.8-10.8) K/uL RBC (4.40-5.90) Mil/uL Hgb (12.0-18.0) g/dL Hct (35.0-51.0) % MCV (80.0-94.0) fL MCH (27.0-31.0) pg MCHC (33.0-37.0) g/dL RDW (11.5-14.5) % Plt Count (130-400) K/uL MPV (7.2-11.7) fL Neut % (Auto) (50.0-75.0) % Lymph % (Auto) (20.0-40.0) % [place] % (Auto) (0.0-10.0) % Eos % (Auto) (0.0-4.0) % Baso % (Auto) (0.0-2.0) % Neut # (Auto) (1.8-7.0) K/uL Lymph # (Auto) (1.0-4.3) K/uL [place] # (Auto) (0.0-0.8) K/uL Eos # (Auto) (0.0-0.7) K/uL Baso # (Auto) (0.0-0.2) K/uL Differential Comment PT (9.7-12.2) SECONDS INR APTT (21-34) SECONDS pO2 (30-55) mm/Hg VBG pH (7.32-7.43) VBG pCO2 (40-60) mmHg VBG HCO3 mmol/L VBG Total CO2 (22-28) mmol/L VBG O2 Sat (Calc) (40-65) % VBG Base Excess (0.0-2.0) mmol/L VBG Potassium (3.6-5.2) mmol/L Glucose (75-110) mg/dl Lactate (0.7-2.1) mmol/L Crit Value Called To Crit Value Called By Crit Value Read Back Blood Gas Notified Time Sodium 144 (132-148) mmol/L Potassium 3.7 (3.6-5.2) mmol/L Chloride 110 H (98-107) mmol/L Carbon Dioxide 21 L (22-30) mmol/L Anion Gap 17 (10-20) BUN 30 H (9-20) mg/dL Creatinine 1.1 (0.8-1.5) mg/dL Est GFR ( Amer) > 60 Est GFR (Non-Af Amer) > 60 POC Glucose (mg/dL) (65-110) mg/dL Random Glucose 222 H (75-110) mg/dL Calcium 9.2 (8.6-10.4) mg/dl Phosphorus (2.5-4.5) mg/dL Magnesium 1.1 L (1.6-2.3) mg/dL Total Bilirubin (0.2-1.3) mg/dL AST (17-59) U/L ALT (21-72) U/L Alkaline Phosphatase (38-126) U/L Total Creatine Kinase (55-170) U/L CK-MB (Mass) (0.0-3.38) ng/mL Troponin I (0.00-0.120) ng/mL NT-Pro-B Natriuret Pep (0-900) pg/mL Total Protein (6.3-8.3) g/dL Albumin (3.5-5.0) g/dL Globulin (2.2-3.9) gm/dL Albumin/Globulin Ratio (1.0-2.1) Triglycerides (0-149) mg/dL Cholesterol (0-199) mg/dL LDL Cholesterol Direct (0-129) mg/dL HDL Cholesterol (30-70) mg/dL Lipase (23-300) U/L Procalcitonin < 0.05 L (0.19-0.49) NG/ML Free T4 (0.78-2.19) ng/dL TSH 3rd Generation (0.46-4.68) mIU/L Plasma Cortisol PM (1.7-14.1) ug/dL Venous Blood Potassium (3.6-5.2) mmol/L Urine Color (YELLOW) Urine Clarity (Clear) Urine pH (5.0-8.0) Ur Specific Foreman (1.003-1.030) Urine Protein (NEGATIVE) mg/dL Urine Glucose (UA) (Normal) mg/dL Urine Ketones (NEGATIVE) mg/dL Urine Blood (NEGATIVE) Urine Nitrate (NEGATIVE) Urine Bilirubin (NEGATIVE) Urine Urobilinogen (0.2-1.0) mg/dL Ur Leukocyte Esterase (Negative) Magi/uL Urine WBC (Auto) (0-5) /hpf Urine RBC (Auto) (0-3) /hpf Urine Bacteria (<OCC) Blood Type Antibody Screen 10/16/17 10/16/17 10/16/17 Range/Units 23:30 21:54 21:48 WBC (4.8-10.8) K/uL RBC (4.40-5.90) Mil/uL Hgb (12.0-18.0) g/dL Hct (35.0-51.0) % MCV (80.0-94.0) fL MCH (27.0-31.0) pg MCHC (33.0-37.0) g/dL RDW (11.5-14.5) % Plt Count (130-400) K/uL MPV (7.2-11.7) fL Neut % (Auto) (50.0-75.0) % Lymph % (Auto) (20.0-40.0) % [place] % (Auto) (0.0-10.0) % Eos % (Auto) (0.0-4.0) % Baso % (Auto) (0.0-2.0) % Neut # (Auto) (1.8-7.0) K/uL Lymph # (Auto) (1.0-4.3) K/uL [place] # (Auto) (0.0-0.8) K/uL Eos # (Auto) (0.0-0.7) K/uL Baso # (Auto) (0.0-0.2) K/uL Differential Comment PT (9.7-12.2) SECONDS INR APTT (21-34) SECONDS pO2 37 (30-55) mm/Hg VBG pH 7.40 (7.32-7.43) VBG pCO2 30 L (40-60) mmHg VBG HCO3 20.3 mmol/L VBG Total CO2 19.5 L (22-28) mmol/L VBG O2 Sat (Calc) 73.6 H (40-65) % VBG Base Excess -5.0 L (0.0-2.0) mmol/L VBG Potassium 13.3 H* (3.6-5.2) mmol/L Glucose 214 H (75-110) mg/dl Lactate 1.1 (0.7-2.1) mmol/L Crit Value Called To Lauri ricks curriculum specialist Crit Value Called By Naomi maher rt Crit Value Read Back Y Blood Gas Notified Time 2349 Sodium 134.0 (132-148) mmol/L Potassium (3.6-5.2) mmol/L Chloride 118.0 H (98-107) mmol/L Carbon Dioxide (22-30) mmol/L Anion Gap (10-20) BUN (9-20) mg/dL Creatinine (0.8-1.5) mg/dL Est GFR ( Amer) Est GFR (Non-Af Amer) POC Glucose (mg/dL) (65-110) mg/dL Random Glucose (75-110) mg/dL Calcium (8.6-10.4) mg/dl Phosphorus (2.5-4.5) mg/dL Magnesium (1.6-2.3) mg/dL Total Bilirubin (0.2-1.3) mg/dL AST (17-59) U/L ALT (21-72) U/L Alkaline Phosphatase (38-126) U/L Total Creatine Kinase (55-170) U/L CK-MB (Mass) (0.0-3.38) ng/mL Troponin I (0.00-0.120) ng/mL NT-Pro-B Natriuret Pep (0-900) pg/mL Total Protein (6.3-8.3) g/dL Albumin (3.5-5.0) g/dL Globulin (2.2-3.9) gm/dL Albumin/Globulin Ratio (1.0-2.1) Triglycerides (0-149) mg/dL Cholesterol (0-199) mg/dL LDL Cholesterol Direct (0-129) mg/dL HDL Cholesterol (30-70) mg/dL Lipase (23-300) U/L Procalcitonin (0.19-0.49) NG/ML Free T4 1.06 (0.78-2.19) ng/dL TSH 3rd Generation 1.42 (0.46-4.68) mIU/L Plasma Cortisol PM (1.7-14.1) ug/dL Venous Blood Potassium 13.3 H* (3.6-5.2) mmol/L Urine Color (YELLOW) Urine Clarity (Clear) Urine pH (5.0-8.0) Ur Specific Foreman (1.003-1.030) Urine Protein (NEGATIVE) mg/dL Urine Glucose (UA) (Normal) mg/dL Urine Ketones (NEGATIVE) mg/dL Urine Blood (NEGATIVE) Urine Nitrate (NEGATIVE) Urine Bilirubin (NEGATIVE) Urine Urobilinogen (0.2-1.0) mg/dL Ur Leukocyte Esterase (Negative) Magi/uL Urine WBC (Auto) (0-5) /hpf Urine RBC (Auto) (0-3) /hpf Urine Bacteria (<OCC) Blood Type Antibody Screen 10/16/17 10/16/17 10/16/17 Range/Units 21:48 21:48 19:55 WBC (4.8-10.8) K/uL RBC (4.40-5.90) Mil/uL Hgb (12.0-18.0) g/dL Hct (35.0-51.0) % MCV (80.0-94.0) fL MCH (27.0-31.0) pg MCHC (33.0-37.0) g/dL RDW (11.5-14.5) % Plt Count (130-400) K/uL MPV (7.2-11.7) fL Neut % (Auto) (50.0-75.0) % Lymph % (Auto) (20.0-40.0) % Rapides % (Auto) (0.0-10.0) % Eos % (Auto) (0.0-4.0) % Baso % (Auto) (0.0-2.0) % Neut # (Auto) (1.8-7.0) K/uL Lymph # (Auto) (1.0-4.3) K/uL Rapides # (Auto) (0.0-0.8) K/uL Eos # (Auto) (0.0-0.7) K/uL Baso # (Auto) (0.0-0.2) K/uL Differential Comment PT (9.7-12.2) SECONDS INR APTT (21-34) SECONDS pO2 68 H (30-55) mm/Hg VBG pH 7.58 H (7.32-7.43) VBG pCO2 19 L* (40-60) mmHg VBG HCO3 23.6 mmol/L VBG Total CO2 18.4 L (22-28) mmol/L VBG O2 Sat (Calc) 96.5 H (40-65) % VBG Base Excess -1.7 L (0.0-2.0) mmol/L VBG Potassium 2.9 L (3.6-5.2) mmol/L Glucose 178 H (75-110) mg/dl Lactate 2.6 H (0.7-2.1) mmol/L Crit Value Called To Er nurse Crit Value Called By Ismael rt Crit Value Read Back Y Blood Gas Notified Time 2007 Sodium 141.0 (132-148) mmol/L Potassium (3.6-5.2) mmol/L Chloride 109.0 H (98-107) mmol/L Carbon Dioxide (22-30) mmol/L Anion Gap (10-20) BUN (9-20) mg/dL Creatinine (0.8-1.5) mg/dL Est GFR ( Amer) Est GFR (Non-Af Amer) POC Glucose (mg/dL) (65-110) mg/dL Random Glucose (75-110) mg/dL Calcium (8.6-10.4) mg/dl Phosphorus (2.5-4.5) mg/dL Magnesium (1.6-2.3) mg/dL Total Bilirubin (0.2-1.3) mg/dL AST (17-59) U/L ALT (21-72) U/L Alkaline Phosphatase (38-126) U/L Total Creatine Kinase (55-170) U/L CK-MB (Mass) (0.0-3.38) ng/mL Troponin I (0.00-0.120) ng/mL NT-Pro-B Natriuret Pep (0-900) pg/mL Total Protein (6.3-8.3) g/dL Albumin (3.5-5.0) g/dL Globulin (2.2-3.9) gm/dL Albumin/Globulin Ratio (1.0-2.1) Triglycerides (0-149) mg/dL Cholesterol (0-199) mg/dL LDL Cholesterol Direct (0-129) mg/dL HDL Cholesterol (30-70) mg/dL Lipase (23-300) U/L Procalcitonin (0.19-0.49) NG/ML Free T4 (0.78-2.19) ng/dL TSH 3rd Generation (0.46-4.68) mIU/L Plasma Cortisol PM 30.4 H (1.7-14.1) ug/dL Venous Blood Potassium 2.9 L (3.6-5.2) mmol/L Urine Color Yellow (YELLOW) Urine Clarity Clear (Clear) Urine pH 5.0 (5.0-8.0) Ur Specific Foreman 1.010 (1.003-1.030) Urine Protein Negative (NEGATIVE) mg/dL Urine Glucose (UA) 1+ H (Normal) mg/dL Urine Ketones Trace (NEGATIVE) mg/dL Urine Blood Negative (NEGATIVE) Urine Nitrate Negative (NEGATIVE) Urine Bilirubin Negative (NEGATIVE) Urine Urobilinogen Normal (0.2-1.0) mg/dL Ur Leukocyte Esterase Neg (Negative) Magi/uL Urine WBC (Auto) 1 (0-5) /hpf Urine RBC (Auto) 1 (0-3) /hpf Urine Bacteria Rare (<OCC) Blood Type Antibody Screen 10/16/17 10/16/17 10/16/17 Range/Units 19:46 19:46 19:46 WBC (4.8-10.8) K/uL RBC (4.40-5.90) Mil/uL Hgb (12.0-18.0) g/dL Hct (35.0-51.0) % MCV (80.0-94.0) fL MCH (27.0-31.0) pg MCHC (33.0-37.0) g/dL RDW (11.5-14.5) % Plt Count (130-400) K/uL MPV (7.2-11.7) fL Neut % (Auto) (50.0-75.0) % Lymph % (Auto) (20.0-40.0) % Rapides % (Auto) (0.0-10.0) % Eos % (Auto) (0.0-4.0) % Baso % (Auto) (0.0-2.0) % Neut # (Auto) (1.8-7.0) K/uL Lymph # (Auto) (1.0-4.3) K/uL [place] # (Auto) (0.0-0.8) K/uL Eos # (Auto) (0.0-0.7) K/uL Baso # (Auto) (0.0-0.2) K/uL Differential Comment PT 12.7 H (9.7-12.2) SECONDS INR 1.2 APTT 29 (21-34) SECONDS pO2 (30-55) mm/Hg VBG pH (7.32-7.43) VBG pCO2 (40-60) mmHg VBG HCO3 mmol/L VBG Total CO2 (22-28) mmol/L VBG O2 Sat (Calc) (40-65) % VBG Base Excess (0.0-2.0) mmol/L VBG Potassium (3.6-5.2) mmol/L Glucose (75-110) mg/dl Lactate (0.7-2.1) mmol/L Crit Value Called To Crit Value Called By Crit Value Read Back Blood Gas Notified Time Sodium 143 (132-148) mmol/L Potassium 3.1 L (3.6-5.2) mmol/L Chloride 108 H (98-107) mmol/L Carbon Dioxide 17 L (22-30) mmol/L Anion Gap 21 H (10-20) BUN 33 H (9-20) mg/dL Creatinine 1.3 (0.8-1.5) mg/dL Est GFR ( Amer) > 60 Est GFR (Non-Af Amer) 55 POC Glucose (mg/dL) (65-110) mg/dL Random Glucose 179 H (75-110) mg/dL Calcium 9.9 (8.6-10.4) mg/dl Phosphorus (2.5-4.5) mg/dL Magnesium (1.6-2.3) mg/dL Total Bilirubin 0.6 (0.2-1.3) mg/dL AST 21 (17-59) U/L ALT 29 (21-72) U/L Alkaline Phosphatase 73 (38-126) U/L Total Creatine Kinase 93 (55-170) U/L CK-MB (Mass) 1.43 (0.0-3.38) ng/mL Troponin I < 0.0120 (0.00-0.120) ng/mL NT-Pro-B Natriuret Pep 739 (0-900) pg/mL Total Protein 7.3 (6.3-8.3) g/dL Albumin 4.4 (3.5-5.0) g/dL Globulin 2.9 (2.2-3.9) gm/dL Albumin/Globulin Ratio 1.5 (1.0-2.1) Triglycerides 204 H (0-149) mg/dL Cholesterol 150 (0-199) mg/dL LDL Cholesterol Direct 78 (0-129) mg/dL HDL Cholesterol 29 L (30-70) mg/dL Lipase 88 (23-300) U/L Procalcitonin (0.19-0.49) NG/ML Free T4 (0.78-2.19) ng/dL TSH 3rd Generation (0.46-4.68) mIU/L Plasma Cortisol PM (1.7-14.1) ug/dL Venous Blood Potassium (3.6-5.2) mmol/L Urine Color (YELLOW) Urine Clarity (Clear) Urine pH (5.0-8.0) Ur Specific Foreman (1.003-1.030) Urine Protein (NEGATIVE) mg/dL Urine Glucose (UA) (Normal) mg/dL Urine Ketones (NEGATIVE) mg/dL Urine Blood (NEGATIVE) Urine Nitrate (NEGATIVE) Urine Bilirubin (NEGATIVE) Urine Urobilinogen (0.2-1.0) mg/dL Ur Leukocyte Esterase (Negative) Magi/uL Urine WBC (Auto) (0-5) /hpf Urine RBC (Auto) (0-3) /hpf Urine Bacteria (<OCC) Blood Type O POSITIVE Antibody Screen Negative 10/16/17 10/16/17 Range/Units 19:46 19:30 WBC 15.0 H (4.8-10.8) K/uL RBC 5.15 (4.40-5.90) Mil/uL Hgb 14.4 (12.0-18.0) g/dL Hct 41.5 (35.0-51.0) % MCV 80.6 (80.0-94.0) fL MCH 28.0 (27.0-31.0) pg MCHC 34.8 (33.0-37.0) g/dL RDW 13.6 (11.5-14.5) % Plt Count 213 (130-400) K/uL MPV 10.7 (7.2-11.7) fL Neut % (Auto) 46.9 L (50.0-75.0) % Lymph % (Auto) 40.3 H (20.0-40.0) % [place] % (Auto) 9.7 (0.0-10.0) % Eos % (Auto) 2.1 (0.0-4.0) % Baso % (Auto) 1.0 (0.0-2.0) % Neut # (Auto) 7.0 (1.8-7.0) K/uL Lymph # (Auto) 6.0 H (1.0-4.3) K/uL [place] # (Auto) 1.5 H (0.0-0.8) K/uL Eos # (Auto) 0.3 (0.0-0.7) K/uL Baso # (Auto) 0.1 (0.0-0.2) K/uL Differential Comment PT (9.7-12.2) SECONDS INR APTT (21-34) SECONDS pO2 (30-55) mm/Hg VBG pH (7.32-7.43) VBG pCO2 (40-60) mmHg VBG HCO3 mmol/L VBG Total CO2 (22-28) mmol/L VBG O2 Sat (Calc) (40-65) % VBG Base Excess (0.0-2.0) mmol/L VBG Potassium (3.6-5.2) mmol/L Glucose (75-110) mg/dl Lactate (0.7-2.1) mmol/L Crit Value Called To Crit Value Called By Crit Value Read Back Blood Gas Notified Time Sodium (132-148) mmol/L Potassium (3.6-5.2) mmol/L Chloride (98-107) mmol/L Carbon Dioxide (22-30) mmol/L Anion Gap (10-20) BUN (9-20) mg/dL Creatinine (0.8-1.5) mg/dL Est GFR ( Amer) Est GFR (Non-Af Amer) POC Glucose (mg/dL) 170 H (65-110) mg/dL Random Glucose (75-110) mg/dL Calcium (8.6-10.4) mg/dl Phosphorus (2.5-4.5) mg/dL Magnesium (1.6-2.3) mg/dL Total Bilirubin (0.2-1.3) mg/dL AST (17-59) U/L ALT (21-72) U/L Alkaline Phosphatase (38-126) U/L Total Creatine Kinase (55-170) U/L CK-MB (Mass) (0.0-3.38) ng/mL Troponin I (0.00-0.120) ng/mL NT-Pro-B Natriuret Pep (0-900) pg/mL Total Protein (6.3-8.3) g/dL Albumin (3.5-5.0) g/dL Globulin (2.2-3.9) gm/dL Albumin/Globulin Ratio (1.0-2.1) Triglycerides (0-149) mg/dL Cholesterol (0-199) mg/dL LDL Cholesterol Direct (0-129) mg/dL HDL Cholesterol (30-70) mg/dL Lipase (23-300) U/L Procalcitonin (0.19-0.49) NG/ML Free T4 (0.78-2.19) ng/dL TSH 3rd Generation (0.46-4.68) mIU/L Plasma Cortisol PM (1.7-14.1) ug/dL Venous Blood Potassium (3.6-5.2) mmol/L Urine Color (YELLOW) Urine Clarity (Clear) Urine pH (5.0-8.0) Ur Specific Foreman (1.003-1.030) Urine Protein (NEGATIVE) mg/dL Urine Glucose (UA) (Normal) mg/dL Urine Ketones (NEGATIVE) mg/dL Urine Blood (NEGATIVE) Urine Nitrate (NEGATIVE) Urine Bilirubin (NEGATIVE) Urine Urobilinogen (0.2-1.0) mg/dL Ur Leukocyte Esterase (Negative) Magi/uL Urine WBC (Auto) (0-5) /hpf Urine RBC (Auto) (0-3) /hpf Urine Bacteria (<OCC) Blood Type Antibody Screen Laboratory Results - last 24 hr 10/16/17 10/16/17 10/16/17 19:30 19:46 19:46 WBC 15.0 H RBC 5.15 Hgb 14.4 Hct 41.5 MCV 80.6 MCH 28.0 MCHC 34.8 RDW 13.6 Plt Count 213 MPV 10.7 Neut % (Auto) 46.9 L Lymph % (Auto) 40.3 H [place] % (Auto) 9.7 Eos % (Auto) 2.1 Baso % (Auto) 1.0 Neut # (Auto) 7.0 Lymph # (Auto) 6.0 H [place] # (Auto) 1.5 H Eos # (Auto) 0.3 Baso # (Auto) 0.1 Differential Comment PT 12.7 H INR 1.2 APTT 29 pO2 VBG pH VBG pCO2 VBG HCO3 VBG Total CO2 VBG O2 Sat (Calc) VBG Base Excess VBG Potassium Glucose Lactate Crit Value Called To Crit Value Called By Crit Value Read Back Blood Gas Notified Time Sodium Potassium Chloride Carbon Dioxide Anion Gap BUN Creatinine Est GFR ( Amer) Est GFR (Non-Af Amer) POC Glucose (mg/dL) 170 H Random Glucose Calcium Phosphorus Magnesium Total Bilirubin AST ALT Alkaline Phosphatase Total Creatine Kinase CK-MB (Mass) Troponin I NT-Pro-B Natriuret Pep Total Protein Albumin Globulin Albumin/Globulin Ratio Triglycerides Cholesterol LDL Cholesterol Direct HDL Cholesterol Lipase Procalcitonin Free T4 TSH 3rd Generation Plasma Cortisol PM Venous Blood Potassium Urine Color Urine Clarity Urine pH Ur Specific Foreman Urine Protein Urine Glucose (UA) Urine Ketones Urine Blood Urine Nitrate Urine Bilirubin Urine Urobilinogen Ur Leukocyte Esterase Urine WBC (Auto) Urine RBC (Auto) Urine Bacteria Blood Type Antibody Screen 10/16/17 10/16/17 10/16/17 19:46 19:46 19:55 WBC RBC Hgb Hct MCV MCH MCHC RDW Plt Count MPV Neut % (Auto) Lymph % (Auto) [place] % (Auto) Eos % (Auto) Baso % (Auto) Neut # (Auto) Lymph # (Auto) [place] # (Auto) Eos # (Auto) Baso # (Auto) Differential Comment PT INR APTT pO2 68 H VBG pH 7.58 H VBG pCO2 19 L* VBG HCO3 23.6 VBG Total CO2 18.4 L VBG O2 Sat (Calc) 96.5 H VBG Base Excess -1.7 L VBG Potassium 2.9 L Glucose 178 H Lactate 2.6 H Crit Value Called To Er nurse Crit Value Called By Ismael rt Crit Value Read Back Y Blood Gas Notified Time 2007 Sodium 143 141.0 Potassium 3.1 L Chloride 108 H 109.0 H Carbon Dioxide 17 L Anion Gap 21 H BUN 33 H Creatinine 1.3 Est GFR ( Amer) > 60 Est GFR (Non-Af Amer) 55 POC Glucose (mg/dL) Random Glucose 179 H Calcium 9.9 Phosphorus Magnesium Total Bilirubin 0.6 AST 21 ALT 29 Alkaline Phosphatase 73 Total Creatine Kinase 93 CK-MB (Mass) 1.43 Troponin I < 0.0120 NT-Pro-B Natriuret Pep 739 Total Protein 7.3 Albumin 4.4 Globulin 2.9 Albumin/Globulin Ratio 1.5 Triglycerides 204 H Cholesterol 150 LDL Cholesterol Direct 78 HDL Cholesterol 29 L Lipase 88 Procalcitonin Free T4 TSH 3rd Generation Plasma Cortisol PM Venous Blood Potassium 2.9 L Urine Color Urine Clarity Urine pH Ur Specific Foreman Urine Protein Urine Glucose (UA) Urine Ketones Urine Blood Urine Nitrate Urine Bilirubin Urine Urobilinogen Ur Leukocyte Esterase Urine WBC (Auto) Urine RBC (Auto) Urine Bacteria Blood Type O POSITIVE Antibody Screen Negative 10/16/17 10/16/17 10/16/17 21:48 21:48 21:48 WBC RBC Hgb Hct MCV MCH MCHC RDW Plt Count MPV Neut % (Auto) Lymph % (Auto) [place] % (Auto) Eos % (Auto) Baso % (Auto) Neut # (Auto) Lymph # (Auto) [place] # (Auto) Eos # (Auto) Baso # (Auto) Differential Comment PT INR APTT pO2 VBG pH VBG pCO2 VBG HCO3 VBG Total CO2 VBG O2 Sat (Calc) VBG Base Excess VBG Potassium Glucose Lactate Crit Value Called To Crit Value Called By Crit Value Read Back Blood Gas Notified Time Sodium Potassium Chloride Carbon Dioxide Anion Gap BUN Creatinine Est GFR ( Amer) Est GFR (Non-Af Amer) POC Glucose (mg/dL) Random Glucose Calcium Phosphorus Magnesium Total Bilirubin AST ALT Alkaline Phosphatase Total Creatine Kinase CK-MB (Mass) Troponin I NT-Pro-B Natriuret Pep Total Protein Albumin Globulin Albumin/Globulin Ratio Triglycerides Cholesterol LDL Cholesterol Direct HDL Cholesterol Lipase Procalcitonin Free T4 TSH 3rd Generation 1.42 Plasma Cortisol PM 30.4 H Venous Blood Potassium Urine Color Yellow Urine Clarity Clear Urine pH 5.0 Ur Specific Foreman 1.010 Urine Protein Negative Urine Glucose (UA) 1+ H Urine Ketones Trace Urine Blood Negative Urine Nitrate Negative Urine Bilirubin Negative Urine Urobilinogen Normal Ur Leukocyte Esterase Neg Urine WBC (Auto) 1 Urine RBC (Auto) 1 Urine Bacteria Rare Blood Type Antibody Screen 10/16/17 10/16/1710/16/18 21:54 23:30 23:42 WBC RBC Hgb Hct MCV MCH MCHC RDW Plt Count MPV Neut % (Auto) Lymph % (Auto) [place] % (Auto) Eos % (Auto) Baso % (Auto) Neut # (Auto) Lymph # (Auto) [place] # (Auto) Eos # (Auto) Baso # (Auto) Differential Comment PT INR APTT pO2 37 VBG pH 7.40 VBG pCO2 30 L VBG HCO3 20.3 VBG Total CO2 19.5 L VBG O2 Sat (Calc) 73.6 H VBG Base Excess -5.0 L VBG Potassium 13.3 H* Glucose 214 H Lactate 1.1 Crit Value Called To Lauri ricks curriculum specialist Crit Value Called By Naomi maher rt Crit Value Read Back Y Blood Gas Notified Time 2349 Sodium 134.0 Potassium Chloride 118.0 H Carbon Dioxide Anion Gap BUN Creatinine Est GFR ( Amer) Est GFR (Non-Af Amer) POC Glucose (mg/dL) Random Glucose Calcium Phosphorus Magnesium Total Bilirubin AST ALT Alkaline Phosphatase Total Creatine Kinase CK-MB (Mass) Troponin I NT-Pro-B Natriuret Pep Total Protein Albumin Globulin Albumin/Globulin Ratio Triglycerides Cholesterol LDL Cholesterol Direct HDL Cholesterol Lipase Procalcitonin < 0.05 L Free T4 1.06 TSH 3rd Generation Plasma Cortisol PM Venous Blood Potassium 13.3 H* Urine Color Urine Clarity Urine pH Ur Specific Foreman Urine Protein Urine Glucose (UA) Urine Ketones Urine Blood Urine Nitrate Urine Bilirubin Urine Urobilinogen Ur Leukocyte Esterase Urine WBC (Auto) Urine RBC (Auto) Urine Bacteria Blood Type Antibody Screen 10/16/17 10/16/17 10/17/17 23:42 23:59 00:36 WBC RBC Hgb Hct MCV MCH MCHC RDW Plt Count MPV Neut % (Auto) Lymph % (Auto) [place] % (Auto) Eos % (Auto) Baso % (Auto) Neut # (Auto) Lymph # (Auto) [place] # (Auto) Eos # (Auto) Baso # (Auto) Differential Comment PT INR APTT pO2 VBG pH VBG pCO2 VBG HCO3 VBG Total CO2 VBG O2 Sat (Calc) VBG Base Excess VBG Potassium Glucose Lactate Crit Value Called To Crit Value Called By Crit Value Read Back Blood Gas Notified Time Sodium 144 Potassium 3.7 Chloride 110 H Carbon Dioxide 21 L Anion Gap 17 BUN 30 H Creatinine 1.1 Est GFR ( Amer) > 60 Est GFR (Non-Af Amer) > 60 POC Glucose (mg/dL) 226 H Random Glucose 222 H Calcium 9.2 Phosphorus Magnesium 1.1 L Total Bilirubin AST ALT Alkaline Phosphatase Total Creatine Kinase CK-MB (Mass) Troponin I NT-Pro-B Natriuret Pep Total Protein Albumin Globulin Albumin/Globulin Ratio Triglycerides Cholesterol LDL Cholesterol Direct HDL Cholesterol Lipase Procalcitonin Free T4 TSH 3rd Generation Plasma Cortisol PM Venous Blood Potassium Urine Color Urine Clarity Urine pH Ur Specific Foreman Urine Protein Urine Glucose (UA) Urine Ketones Urine Blood Urine Nitrate Urine Bilirubin Urine Urobilinogen Ur Leukocyte Esterase Urine WBC (Auto) Urine RBC (Auto) Urine Bacteria Blood Type Antibody Screen 10/17/17 10/17/17 10/17/17 06:27 06:27 06:32 WBC 7.5 RBC 4.62 Hgb 12.9 Hct 37.5 MCV 81.1 MCH 28.0 MCHC 34.5 RDW 13.6 Plt Count 114 L D MPV 9.5 Neut % (Auto) 77.4 H Lymph % (Auto) 15.0 L [place] % (Auto) 6.5 Eos % (Auto) 0.4 Baso % (Auto) 0.7 Neut # (Auto) 5.8 Lymph # (Auto) 1.1 [place] # (Auto) 0.5 Eos # (Auto) 0.0 Baso # (Auto) 0.1 Differential Comment PT INR APTT pO2 VBG pH VBG pCO2 VBG HCO3 VBG Total CO2 VBG O2 Sat (Calc) VBG Base Excess VBG Potassium Glucose Lactate Crit Value Called To Crit Value Called By Crit Value Read Back Blood Gas Notified Time Sodium 144 Potassium 4.1 Chloride 108 H Carbon Dioxide 24 Anion Gap 16 BUN 22 H Creatinine 1.1 Est GFR ( Amer) > 60 Est GFR (Non-Af Amer) > 60 POC Glucose (mg/dL) 167 H Random Glucose 161 H Calcium 9.3 Phosphorus 3.5 Magnesium 1.9 Total Bilirubin 0.6 AST 17 ALT 26 Alkaline Phosphatase 54 Total Creatine Kinase CK-MB (Mass) Troponin I < 0.0120 NT-Pro-B Natriuret Pep Total Protein 6.8 Albumin 4.1 Globulin 2.7 Albumin/Globulin Ratio 1.5 Triglycerides Cholesterol LDL Cholesterol Direct HDL Cholesterol Lipase Procalcitonin Free T4 TSH 3rd Generation Plasma Cortisol PM Venous Blood Potassium Urine Color Urine Clarity Urine pH Ur Specific Foreman Urine Protein Urine Glucose (UA) Urine Ketones Urine Blood Urine Nitrate Urine Bilirubin Urine Urobilinogen Ur Leukocyte Esterase Urine WBC (Auto) Urine RBC (Auto) Urine Bacteria Blood Type Antibody Screen 10/17/17 10/17/17 11:44 16:17 WBC RBC Hgb Hct MCV MCH MCHC RDW Plt Count MPV Neut % (Auto) Lymph % (Auto) [place] % (Auto) Eos % (Auto) Baso % (Auto) Neut # (Auto) Lymph # (Auto) [place] # (Auto) Eos # (Auto) Baso # (Auto) Differential Comment PT INR APTT pO2 VBG pH VBG pCO2 VBG HCO3 VBG Total CO2 VBG O2 Sat (Calc) VBG Base Excess VBG Potassium Glucose Lactate Crit Value Called To Crit Value Called By Crit Value Read Back Blood Gas Notified Time Sodium Potassium Chloride Carbon Dioxide Anion Gap BUN Creatinine Est GFR ( Amer) Est GFR (Non-Af Amer) POC Glucose (mg/dL) 76 137 H Random Glucose Calcium Phosphorus Magnesium Total Bilirubin AST ALT Alkaline Phosphatase Total Creatine Kinase CK-MB (Mass) Troponin I NT-Pro-B Natriuret Pep Total Protein Albumin Globulin Albumin/Globulin Ratio Triglycerides Cholesterol LDL Cholesterol Direct HDL Cholesterol Lipase Procalcitonin Free T4 TSH 3rd Generation Plasma Cortisol PM Venous Blood Potassium Urine Color Urine Clarity Urine pH Ur Specific Foreman Urine Protein Urine Glucose (UA) Urine Ketones Urine Blood Urine Nitrate Urine Bilirubin Urine Urobilinogen Ur Leukocyte Esterase Urine WBC (Auto) Urine RBC (Auto) Urine Bacteria Blood Type Antibody Screen EKG/Cardiology Studies: Cardiology / EKG Studies 10/16/17 19:39 ELECTROCARDIOGRAM Stat Comment: bed 12 Mode Of Transportation: BED Reason For Exam: cp 10/16/17 20:21 EKG [ELECTROCARDIOGRAM] Routine Comment: Mode Of Transportation: PORTABLE Reason For Exam: bradycardia 10/17/17 07:00 EKG [ELECTROCARDIOGRAM] Routine Comment: Mode Of Transportation: BED Reason For Exam: bradycardia EKG [ELECTROCARDIOGRAM] Routine Comment: Mode Of Transportation: PORTABLE Reason For Exam: bradycardia Critical Care Progress Note - Nutrition Nutrition: Nutrition Category Date Time Status Heart Healthy Diet [DIET] Diets 10/17/17 Breakfast Active Attending/Attestation - Attestation I have personally seen and examined this patient.: Yes I have fully participated in the care of the patient.: Yes I have reviewed all pertinent clinical information: Yes Notes (Text): 10/17/17 18:46 PATIENT SEEN AND EXAMINED IN THE INTENSIVE CARE UNIT. 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
[2017-10-18] MEDS: Piperacill/Tazo 3.375gm in Dex 3.375 GM/50 ML BAG IVPB SCH (04:39)
[2017-10-18 06:27] LABS: BASO % 0.7 % (0.0-2.0); EOS # 0.2 K/uL (0.0-0.7); EOS % 2.8 % (0.0-4.0); HEMOGLOBIN 12.6 g/dL (12.0-18.0); LYMPH # 1.7 K/uL (1.0-4.3); LYMPH % 27.5 % (20.0-40.0); MEAN CELL VOLUME 82.9 fL (80.0-94.0); MEAN CORPUSCULAR HGB CONC 33.8 g/dL (33.0-37.0); MONO # 0.5 K/uL (0.0-0.8); MONO % 8.2 % (0.0-10.0); NEUT # 3.7 K/uL (1.8-7.0); NEUT % 60.8 % (50.0-75.0); RBC 4.49 Mil/uL (4.40-5.90); RED CELL DISTRIBUTION WIDTH 13.6 % (11.5-14.5)
[2017-10-18 06:44] LABS: ALB/GLOB RATIO 1.4 (1.0-2.1); ALBUMIN 3.6 g/dL (3.5-5.0); ALT/SGPT 27 U/L (21-72); AST/SGOT 17 U/L (17-59); BLOOD UREA NITROGEN 19 mg/dL (9-20); CALCIUM 8.9 mg/dl (8.6-10.4); GFR AFRICAN-AMERICAN > 60; GFR NON-AFRICAN AMERICAN > 60
[2017-10-18] MEDS: (Novolin R) Insulin Human Regular 100 units/ml vial SC SCH ×4 (08:00→21:35)
--- NOTE | 2017-10-18 08:02 | CP.CCUPN ---
<CristelaEverardo - Last Filed: 10/18/17 12:31> CCU Subjective - Physician Review Subjective (Free Text): Everardo Archibald DO PGY-1, ICU progress note for Dr. Jose Pt seen and examined at bedside. Pt has no complaints at this time. No acute events overnight. He denies fever, headache, dizziness, lightheadedness, weakness, visual changes, chest pain, sob, palpitations, abdominal pain, n/v/d, numbness or tingling. A 12-point ROS was reviewed and is otherwise unremarkable. CCU Objective - Vital Signs / Intake & Output Vital Signs (Last 4 hours): Vital Signs Pulse Resp BP Pulse Ox 10/18/17 05:01 84 14 103/79 95 Intake and Output (Last 8hrs): Intake & Output 10/17/17 10/18/17 10/18/17 22:59 06:59 14:59 Intake Total 850 250 Output Total 1000 400 Balance -150 -150 Weight 68.22 kg Intake: Intake, IV Amount 100 250 Right Hand 100 250 Oral 750 0 Output: Urine 1000 400 Urine, Voided 1000 400 Other: # Voids Urine, Voided 1 1 - Physical Exam Head: Positive for: Atraumatic, Normocephalic Pupils: Positive for: PERRL Extroacular Muscles: Positive for: EOMI Mouth: Positive for: Moist Mucous Membranes Neck: Positive for: Normal Range of Motion Respiratory/Chest: Positive for: Clear to Auscultation, Good Air Exchange. Negative for: Respiratory Distress Cardiovascular: Positive for: Irregular Rhythm Abdomen: Positive for: Normal Bowel Sounds. Negative for: Tenderness (soft), Distention, Rebound Back: Positive for: Normal Inspection Upper Extremity: Positive for: Normal Inspection, NORMAL PULSES (3+ pulses in bilateral radial arteries) Lower Extremity: Positive for: Normal Inspection, NORMAL PULSES (3+ pulses in bilateral DPs) Neurological: Positive for: GCS=15, CN II-XII Intact, Speech Normal, Motor Func Grossly Intact, Normal Sensory Function Skin: Positive for: Warm, Dry Psychiatric: Positive for: Alert, Oriented x 3, Normal Insight - Medications Active Medications: Active Medications Generic Name Dose Route Start Last Admin Trade Name Freq PRN Reason Stop Dose Admin Aspirin 81 mg 10/18/17 10:00 Aspirin Chewable PO DAILY KEESHA Clopidogrel Bisulfate 75 mg 10/18/17 10:00 Plavix PO DAILY KEESHA Dextrose 15 gm 10/17/17 11:14 Glutose 15 PO ONCE PRN Hypoglycemia Protocol Protocol Dextrose 0 ml 10/17/17 11:14 Dextrose 50% Inj IV STAT PRN Hypoglycemia Protocol Protocol Enoxaparin Sodium 30 mg 10/17/17 10:00 10/17/17 09:26 Lovenox SC 30 mg DAILY KEESHA Administration Famotidine 20 mg 10/18/17 10:00 Pepcid PO BID KEESHA Glucagon 1 mg 10/17/17 11:14 Glucagen Diagnostic Kit IM STAT PRN Hypoglycemia Protocol Protocol Piperacillin Sod/Tazobactam Sod 3.375 gm in 50 mls @ 100 mls/hr 10/16/17 23: 15 10/18/17 04:39 Zosyn 3.375 Gm Iv Premix IVPB 100 mls/hr Q6H KEESHA Administration Protocol Vancomycin/Sodium Chloride 1 gm in 200 mls @ 166.6 mls/hr 10/16/17 23:00 10/27 22:26 Vancomycin 1 Gm/Ns 200 Ml IVPB 10/21/17 23:01 166.6 mls/hr Q12H KEESHA Administration Protocol Dextrose 1,000 mls @ 0 mls/hr 10/17/17 11:14 Dextrose 5% In Water 1000 Ml IV .Q0M PRN Hypoglycemia Protocol Protocol Per Protocol Insulin Human Regular 0 unit 10/17/17 11:30 10/18/17 08:00 Novolin R SC Not Given ACHS KEESHA Protocol Ondansetron HCl 4 mg 10/16/17 23:00 Zofran Inj IVP Q4 PRN nausea/vomiting - Patient Studies Lab Studies: Microbiology Studies 10/17/17 01:11 Blood Culture - Preliminary Blood-Venous NO GROWTH AFTER 24 HOURS 10/17/17 01:11 Blood Culture - Preliminary Blood-Venous NO GROWTH AFTER 24 HOURS Lab Studies 10/18/17 10/18/17 10/18/17 Range/Units 07:28 06:21 06:21 WBC 6.0 (4.8-10.8) K/uL RBC 4.49 (4.40-5.90) Mil/uL Hgb 12.6 (12.0-18.0) g/dL Hct 37.2 (35.0-51.0) % MCV 82.9 (80.0-94.0) fL MCH 28.0 (27.0-31.0) pg MCHC 33.8 (33.0-37.0) g/dL RDW 13.6 (11.5-14.5) % Plt Count 101 L (130-400) K/uL MPV 10.0 (7.2-11.7) fL Neut % (Auto) 60.8 (50.0-75.0) % Lymph % (Auto) 27.5 (20.0-40.0) % Smyth % (Auto) 8.2 (0.0-10.0) % Eos % (Auto) 2.8 (0.0-4.0) % Baso % (Auto) 0.7 (0.0-2.0) % Neut # (Auto) 3.7 (1.8-7.0) K/uL Lymph # (Auto) 1.7 (1.0-4.3) K/uL Smyth # (Auto) 0.5 (0.0-0.8) K/uL Eos # (Auto) 0.2 (0.0-0.7) K/uL Baso # (Auto) 0.0 (0.0-0.2) K/uL Differential Comment Sodium 143 (132-148) mmol/L Potassium 3.7 (3.6-5.2) mmol/L Chloride 109 H (98-107) mmol/L Carbon Dioxide 25 (22-30) mmol/L Anion Gap 12 (10-20) BUN 19 (9-20) mg/dL Creatinine 1.1 (0.8-1.5) mg/dL Est GFR ( Amer) > 60 Est GFR (Non-Af Amer) > 60 POC Glucose (mg/dL) 95 (65-110) mg/dL Random Glucose 90 (75-110) mg/dL Calcium 8.9 (8.6-10.4) mg/dl Phosphorus 2.6 (2.5-4.5) mg/dL Magnesium 1.7 (1.6-2.3) mg/dL Total Bilirubin 0.8 (0.2-1.3) mg/dL AST 17 (17-59) U/L ALT 27 (21-72) U/L Alkaline Phosphatase 45 (38-126) U/L Total Protein 6.2 L (6.3-8.3) g/dL Albumin 3.6 (3.5-5.0) g/dL Globulin 2.6 (2.2-3.9) gm/dL Albumin/Globulin Ratio 1.4 (1.0-2.1) Procalcitonin (0.19-0.49) NG/ML 10/17/17 10/17/17 10/17/17 Range/Units 21:02 16:17 11:44 WBC (4.8-10.8) K/uL RBC (4.40-5.90) Mil/uL Hgb (12.0-18.0) g/dL Hct (35.0-51.0) % MCV (80.0-94.0) fL MCH (27.0-31.0) pg MCHC (33.0-37.0) g/dL RDW (11.5-14.5) % Plt Count (130-400) K/uL MPV (7.2-11.7) fL Neut % (Auto) (50.0-75.0) % Lymph % (Auto) (20.0-40.0) % Smyth % (Auto) (0.0-10.0) % Eos % (Auto) (0.0-4.0) % Baso % (Auto) (0.0-2.0) % Neut # (Auto) (1.8-7.0) K/uL Lymph # (Auto) (1.0-4.3) K/uL Smyth # (Auto) (0.0-0.8) K/uL Eos # (Auto) (0.0-0.7) K/uL Baso # (Auto) (0.0-0.2) K/uL Differential Comment Sodium (132-148) mmol/L Potassium (3.6-5.2) mmol/L Chloride (98-107) mmol/L Carbon Dioxide (22-30) mmol/L Anion Gap (10-20) BUN (9-20) mg/dL Creatinine (0.8-1.5) mg/dL Est GFR ( Amer) Est GFR (Non-Af Amer) POC Glucose (mg/dL) 110 137 H 76 (65-110) mg/dL Random Glucose (75-110) mg/dL Calcium (8.6-10.4) mg/dl Phosphorus (2.5-4.5) mg/dL Magnesium (1.6-2.3) mg/dL Total Bilirubin (0.2-1.3) mg/dL AST (17-59) U/L ALT (21-72) U/L Alkaline Phosphatase (38-126) U/L Total Protein (6.3-8.3) g/dL Albumin (3.5-5.0) g/dL Globulin (2.2-3.9) gm/dL Albumin/Globulin Ratio (1.0-2.1) Procalcitonin (0.19-0.49) NG/ML 10/17/17 10/17/17 10/16/17 Range/Units 06:32 06:27 23:42 WBC 7.5 (4.8-10.8) K/uL RBC 4.62 (4.40-5.90) Mil/uL Hgb 12.9 (12.0-18.0) g/dL Hct 37.5 (35.0-51.0) % MCV 81.1 (80.0-94.0) fL MCH 28.0 (27.0-31.0) pg MCHC 34.5 (33.0-37.0) g/dL RDW 13.6 (11.5-14.5) % Plt Count 114 L D (130-400) K/uL MPV 9.5 (7.2-11.7) fL Neut % (Auto) 77.4 H (50.0-75.0) % Lymph % (Auto) 15.0 L (20.0-40.0) % Smyth % (Auto) 6.5 (0.0-10.0) % Eos % (Auto) 0.4 (0.0-4.0) % Baso % (Auto) 0.7 (0.0-2.0) % Neut # (Auto) 5.8 (1.8-7.0) K/uL Lymph # (Auto) 1.1 (1.0-4.3) K/uL Smyth # (Auto) 0.5 (0.0-0.8) K/uL Eos # (Auto) 0.0 (0.0-0.7) K/uL Baso # (Auto) 0.1 (0.0-0.2) K/uL Differential Comment Sodium (132-148) mmol/L Potassium (3.6-5.2) mmol/L Chloride (98-107) mmol/L Carbon Dioxide (22-30) mmol/L Anion Gap (10-20) BUN (9-20) mg/dL Creatinine (0.8-1.5) mg/dL Est GFR ( Amer) Est GFR (Non-Af Amer) POC Glucose (mg/dL) 167 H (65-110) mg/dL Random Glucose (75-110) mg/dL Calcium (8.6-10.4) mg/dl Phosphorus (2.5-4.5) mg/dL Magnesium (1.6-2.3) mg/dL Total Bilirubin (0.2-1.3) mg/dL AST (17-59) U/L ALT (21-72) U/L Alkaline Phosphatase (38-126) U/L Total Protein (6.3-8.3) g/dL Albumin (3.5-5.0) g/dL Globulin (2.2-3.9) gm/dL Albumin/Globulin Ratio (1.0-2.1) Procalcitonin < 0.05 L (0.19-0.49) NG/ML Laboratory Results - last 24 hr 10/16/17 10/17/17 10/17/17 23:42 06:27 06:32 WBC 7.5 RBC 4.62 Hgb 12.9 Hct 37.5 MCV 81.1 MCH 28.0 MCHC 34.5 RDW 13.6 Plt Count 114 L D MPV 9.5 Neut % (Auto) 77.4 H Lymph % (Auto) 15.0 L Smyth % (Auto) 6.5 Eos % (Auto) 0.4 Baso % (Auto) 0.7 Neut # (Auto) 5.8 Lymph # (Auto) 1.1 Smyth # (Auto) 0.5 Eos # (Auto) 0.0 Baso # (Auto) 0.1 Differential Comment Sodium Potassium Chloride Carbon Dioxide Anion Gap BUN Creatinine Est GFR ( Amer) Est GFR (Non-Af Amer) POC Glucose (mg/dL) 167 H Random Glucose Calcium Phosphorus Magnesium Total Bilirubin AST ALT Alkaline Phosphatase Total Protein Albumin Globulin Albumin/Globulin Ratio Procalcitonin < 0.05 L 10/17/17 10/17/17 10/17/17 11:44 16:17 21:02 WBC RBC Hgb Hct MCV MCH MCHC RDW Plt Count MPV Neut % (Auto) Lymph % (Auto) Smyth % (Auto) Eos % (Auto) Baso % (Auto) Neut # (Auto) Lymph # (Auto) Smyth # (Auto) Eos # (Auto) Baso # (Auto) Differential Comment Sodium Potassium Chloride Carbon Dioxide Anion Gap BUN Creatinine Est GFR ( Amer) Est GFR (Non-Af Amer) POC Glucose (mg/dL) 76 137 H 110 Random Glucose Calcium Phosphorus Magnesium Total Bilirubin AST ALT Alkaline Phosphatase Total Protein Albumin Globulin Albumin/Globulin Ratio Procalcitonin 10/18/17 10/18/17 10/18/17 06:21 06:21 07:28 WBC 6.0 RBC 4.49 Hgb 12.6 Hct 37.2 MCV 82.9 MCH 28.0 MCHC 33.8 RDW 13.6 Plt Count 101 L MPV 10.0 Neut % (Auto) 60.8 Lymph % (Auto) 27.5 Smyth % (Auto) 8.2 Eos % (Auto) 2.8 Baso % (Auto) 0.7 Neut # (Auto) 3.7 Lymph # (Auto) 1.7 Smyth # (Auto) 0.5 Eos # (Auto) 0.2 Baso # (Auto) 0.0 Differential Comment Sodium 143 Potassium 3.7 Chloride 109 H Carbon Dioxide 25 Anion Gap 12 BUN 19 Creatinine 1.1 Est GFR ( Amer) > 60 Est GFR (Non-Af Amer) > 60 POC Glucose (mg/dL) 95 Random Glucose 90 Calcium 8.9 Phosphorus 2.6 Magnesium 1.7 Total Bilirubin 0.8 AST 17 ALT 27 Alkaline Phosphatase 45 Total Protein 6.2 L Albumin 3.6 Globulin 2.6 Albumin/Globulin Ratio 1.4 Procalcitonin EKG/Cardiology Studies: Cardiology / EKG Studies 10/18/17 05:00 EKG [ELECTROCARDIOGRAM] DAILY Comment: Mode Of Transportation: Reason For Exam: r/o sss Fingerstick Blood Sugar Results: 95 Review of Systems - Review of Systems All systems: reviewed and no additional remarkable complaints except (as per hpi ) Critical Care Progress Note - Prophylaxis GI Prophylaxis GI: Pepsid - Prophylaxis DVT Prophylaxis DVT: Lovenox - Nutrition Nutrition: Nutrition Category Date Time Status Heart Healthy Diet [DIET] Diets 10/17/17 Breakfast Active Assessment/Plan - Assessment and Plan (Free Text) Assessment: This is a 67 y/o male with HTN, DM, aortic valve replacement (2 years ago) admitted to ICU with bradycardia, hypotension and hypothermia, respiratory alkalosis. Pt was treated with dopamine gtt in the ED. Dopamine gtt was discontinued on 10/17/17 0900. Pt continues to have irregular irregular heart rate , but is asymptomatic since original presentation. Pt noted to have basal ganglia lacunar infarct on head CT (10/17). No neurological symptoms at this time. Pt is in the ICU for cardiovascular and neurological monitoring. Plan: Neuro: - monitor for mental status changes - pt is aaox3 at baseline - Head CT (10/16) shows left basal ganglia lacunar infarct, chronic changes (see full report). - continue asa, plavix as per neuro - neurology evaluated the pt and recommends brain MRI/MRA, but pt is refusing due to claustrophobia. Pt refuses to be medicated prior to procedure. - carotid dopplar, repeat head ct, fely as per neuro; will f/u results Cardio: - Chest CT (10/16) shows no acute findings (see report) - echocardiogram (10/17) shows LVEF of 35.6%, mild concentric LVH, moderately to severely impaired systolic function, regional wall motion abnormalities, bioprosthetic aortic valve, mild to moderate valvular aortic stenosis, mild AR, mild TR, mild pulmonary htn. - cardiology consulted, recs appreciated - EP eval pending, res appreciated - maintain MAP>65 mmHg - EKG shows sinus bradycardia with PVCs - pt is hemodynamically stable Pulm: - maintain spo2>95% - NC prn - CXR (10/16) shows cardiomegaly without pulmonary vascular congestion. No acute pulmonary disease. GI: - HHD - zofran prn nausea - pepcid for pud ppx ID: - leukocytosis has resolved - no signs of infectious etiology - pt remains afebrile - BC x2 prelim shows no growth for the past 24 hours - discontinue antibiotics Renal: - BUN/Cr is stable - maintain euvolemia - replete electrolytes as needed Heme: - H/h is stable Endo: - maintain euglycemia - accucheck ACHS - ISS low ACHS PPX: protonix for pud; lovenox for vte Dispo: Continue to monitor in the ICU Case was reviewed and discussed with attending physician, Dr. Jose <Grant Jose - Last Filed: 10/18/17 16:52> CCU Objective - Vital Signs / Intake & Output Vital Signs (Last 4 hours): Vital Signs Temp Pulse Resp BP Pulse Ox 10/18/17 16:01 90 13 120/78 96 10/18/17 16:00 98.1 F 90 17 93 L 10/18/17 15:01 82 15 125/68 94 L 10/18/17 15:00 92 H 15 96 10/18/17 14:01 82 17 121/56 L 10/18/17 14:00 89 17 96 10/18/17 13:17 68 17 122/68 98 10/18/17 13:14 76 Intake and Output (Last 8hrs): Intake & Output 10/18/17 10/18/17 10/18/17 06:59 14:59 22:59 Intake Total 250 550 0 Output Total 400 300 Balance -150 250 0 Weight 150 lb 6.4 oz Intake: Intake, IV Amount 250 0 0 Right Antecubital 0 0 Right Hand 250 0 0 Oral 0 550 0 Output: Urine 400 300 Urine, Voided 400 300 Other: # Voids Urine, Voided 1 0 0 # Bowel Movements 0 0 - Medications Active Medications: Active Medications Generic Name Dose Route Start Last Admin Trade Name Freq PRN Reason Stop Dose Admin Aspirin 81 mg 10/18/17 10:00 10/18/17 09:20 Aspirin Chewable PO 81 mg DAILY KEESHA Administration Clopidogrel Bisulfate 75 mg 10/18/17 10:00 10/18/17 09:20 Plavix PO 75 mg DAILY KEESHA Administration Dextrose 15 gm 10/17/17 11:14 Glutose 15 PO ONCE PRN Hypoglycemia Protocol Protocol Dextrose 0 ml 10/17/17 11:14 Dextrose 50% Inj IV STAT PRN Hypoglycemia Protocol Protocol Enoxaparin Sodium 30 mg 10/17/17 10:00 10/18/17 09:21 Lovenox SC 30 mg DAILY KEESHA Administration Famotidine 20 mg 10/18/17 10:00 08/09/18 09:20 Pepcid PO 20 mg BID KEESHA Administration Glucagon 1 mg 10/17/17 11:14 Glucagen Diagnostic Kit IM STAT PRN Hypoglycemia Protocol Protocol Dextrose 1,000 mls @ 0 mls/hr 10/17/17 11:14 Dextrose 5% In Water 1000 Ml IV .Q0M PRN Hypoglycemia Protocol Protocol Per Protocol Insulin Human Regular 0 unit 10/17/17 11:30 10/18/17 16:42 Novolin R SC Not Given ACHS KEESHA Protocol Ondansetron HCl 4 mg 10/16/17 23:00 Zofran Inj IVP Q4 PRN nausea/vomiting - Patient Studies Lab Studies: Microbiology Studies 10/17/17 00:45 MRSA Culture (Admit) - Final Nose MRSA NOT DETECTED 10/17/17 01:11 Blood Culture - Preliminary Blood-Venous NO GROWTH AFTER 24 HOURS 10/17/17 01:11 Blood Culture - Preliminary Blood-Venous NO GROWTH AFTER 24 HOURS Lab Studies 10/18/17 10/18/17 10/18/17 Range/Units 16:28 11:23 09:57 WBC (4.8-10.8) K/uL RBC (4.40-5.90) Mil/uL Hgb (12.0-18.0) g/dL Hct (35.0-51.0) % MCV (80.0-94.0) fL MCH (27.0-31.0) pg MCHC (33.0-37.0) g/dL RDW (11.5-14.5) % Plt Count (130-400) K/uL MPV (7.2-11.7) fL Neut % (Auto) (50.0-75.0) % Lymph % (Auto) (20.0-40.0) % Smyth % (Auto) (0.0-10.0) % Eos % (Auto) (0.0-4.0) % Baso % (Auto) (0.0-2.0) % Neut # (Auto) (1.8-7.0) K/uL Lymph # (Auto) (1.0-4.3) K/uL Smyth # (Auto) (0.0-0.8) K/uL Eos # (Auto) (0.0-0.7) K/uL Baso # (Auto) (0.0-0.2) K/uL ESR (0-15) mm/hr Sodium (132-148) mmol/L Potassium (3.6-5.2) mmol/L Chloride (98-107) mmol/L Carbon Dioxide (22-30) mmol/L Anion Gap (10-20) BUN (9-20) mg/dL Creatinine (0.8-1.5) mg/dL Est GFR ( Amer) Est GFR (Non-Af Amer) POC Glucose (mg/dL) 84 192 H (65-110) mg/dL Random Glucose (75-110) mg/dL Calcium (8.6-10.4) mg/dl Phosphorus (2.5-4.5) mg/dL Magnesium (1.6-2.3) mg/dL Total Bilirubin (0.2-1.3) mg/dL AST (17-59) U/L ALT (21-72) U/L Alkaline Phosphatase (38-126) U/L C-React Prot High Sens (1.00-3.00) mg/L Total Protein (6.3-8.3) g/dL Albumin (3.5-5.0) g/dL Globulin (2.2-3.9) gm/dL Albumin/Globulin Ratio (1.0-2.1) Triglycerides (0-149) mg/dL Cholesterol (0-199) mg/dL LDL Cholesterol Direct (0-129) mg/dL HDL Cholesterol (30-70) mg/dL Homocysteine (6.6-14.8) umol/L Free T4 (0.78-2.19) ng/dL TSH 3rd Generation (0.46-4.68) mIU/L Vancomycin Trough 12.7 H (5.0-10.0) ug/mL 10/18/17 10/18/17 10/18/17 Range/Units 09:57 09:57 09:57 WBC (4.8-10.8) K/uL RBC (4.40-5.90) Mil/uL Hgb (12.0-18.0) g/dL Hct (35.0-51.0) % MCV (80.0-94.0) fL MCH (27.0-31.0) pg MCHC (33.0-37.0) g/dL RDW (11.5-14.5) % Plt Count (130-400) K/uL MPV (7.2-11.7) fL Neut % (Auto) (50.0-75.0) % Lymph % (Auto) (20.0-40.0) % Smyth % (Auto) (0.0-10.0) % Eos % (Auto) (0.0-4.0) % Baso % (Auto) (0.0-2.0) % Neut # (Auto) (1.8-7.0) K/uL Lymph # (Auto) (1.0-4.3) K/uL Smyth # (Auto) (0.0-0.8) K/uL Eos # (Auto) (0.0-0.7) K/uL Baso # (Auto) (0.0-0.2) K/uL ESR 15 (0-15) mm/hr Sodium (132-148) mmol/L Potassium (3.6-5.2) mmol/L Chloride (98-107) mmol/L Carbon Dioxide (22-30) mmol/L Anion Gap (10-20) BUN (9-20) mg/dL Creatinine (0.8-1.5) mg/dL Est GFR ( Amer) Est GFR (Non-Af Amer) POC Glucose (mg/dL) (65-110) mg/dL Random Glucose (75-110) mg/dL Calcium (8.6-10.4) mg/dl Phosphorus (2.5-4.5) mg/dL Magnesium (1.6-2.3) mg/dL Total Bilirubin (0.2-1.3) mg/dL AST (17-59) U/L ALT (21-72) U/L Alkaline Phosphatase (38-126) U/L C-React Prot High Sens 3.01 H (1.00-3.00) mg/L Total Protein (6.3-8.3) g/dL Albumin (3.5-5.0) g/dL Globulin (2.2-3.9) gm/dL Albumin/Globulin Ratio (1.0-2.1) Triglycerides 109 D (0-149) mg/dL Cholesterol 153 (0-199) mg/dL LDL Cholesterol Direct 83 (0-129) mg/dL HDL Cholesterol 29 L (30-70) mg/dL Homocysteine 10.2 (6.6-14.8) umol/L Free T4 0.81 (0.78-2.19) ng/dL TSH 3rd Generation 1.35 1.28 (0.46-4.68) mIU/L Vancomycin Trough (5.0-10.0) ug/mL 10/18/17 10/18/17 10/18/17 Range/Units 07:28 06:21 06:21 WBC 6.0 (4.8-10.8) K/uL RBC 4.49 (4.40-5.90) Mil/uL Hgb 12.6 (12.0-18.0) g/dL Hct 37.2 (35.0-51.0) % MCV 82.9 (80.0-94.0) fL MCH 28.0 (27.0-31.0) pg MCHC 33.8 (33.0-37.0) g/dL RDW 13.6 (11.5-14.5) % Plt Count 101 L (130-400) K/uL MPV 10.0 (7.2-11.7) fL Neut % (Auto) 60.8 (50.0-75.0) % Lymph % (Auto) 27.5 (20.0-40.0) % Smyth % (Auto) 8.2 (0.0-10.0) % Eos % (Auto) 2.8 (0.0-4.0) % Baso % (Auto) 0.7 (0.0-2.0) % Neut # (Auto) 3.7 (1.8-7.0) K/uL Lymph # (Auto) 1.7 (1.0-4.3) K/uL Smyth # (Auto) 0.5 (0.0-0.8) K/uL Eos # (Auto) 0.2 (0.0-0.7) K/uL Baso # (Auto) 0.0 (0.0-0.2) K/uL ESR (0-15) mm/hr Sodium 143 (132-148) mmol/L Potassium 3.7 (3.6-5.2) mmol/L Chloride 109 H (98-107) mmol/L Carbon Dioxide 25 (22-30) mmol/L Anion Gap 12 (10-20) BUN 19 (9-20) mg/dL Creatinine 1.1 (0.8-1.5) mg/dL Est GFR ( Amer) > 60 Est GFR (Non-Af Amer) > 60 POC Glucose (mg/dL) 95 (65-110) mg/dL Random Glucose 90 (75-110) mg/dL Calcium 8.9 (8.6-10.4) mg/dl Phosphorus 2.6 (2.5-4.5) mg/dL Magnesium 1.7 (1.6-2.3) mg/dL Total Bilirubin 0.8 (0.2-1.3) mg/dL AST 17 (17-59) U/L ALT 27 (21-72) U/L Alkaline Phosphatase 45 (38-126) U/L C-React Prot High Sens (1.00-3.00) mg/L Total Protein 6.2 L (6.3-8.3) g/dL Albumin 3.6 (3.5-5.0) g/dL Globulin 2.6 (2.2-3.9) gm/dL Albumin/Globulin Ratio 1.4 (1.0-2.1) Triglycerides (0-149) mg/dL Cholesterol (0-199) mg/dL LDL Cholesterol Direct (0-129) mg/dL HDL Cholesterol (30-70) mg/dL Homocysteine (6.6-14.8) umol/L Free T4 (0.78-2.19) ng/dL TSH 3rd Generation (0.46-4.68) mIU/L Vancomycin Trough (5.0-10.0) ug/mL 10/17/17 Range/Units 21:02 WBC (4.8-10.8) K/uL RBC (4.40-5.90) Mil/uL Hgb (12.0-18.0) g/dL Hct (35.0-51.0) % MCV (80.0-94.0) fL MCH (27.0-31.0) pg MCHC (33.0-37.0) g/dL RDW (11.5-14.5) % Plt Count (130-400) K/uL MPV (7.2-11.7) fL Neut % (Auto) (50.0-75.0) % Lymph % (Auto) (20.0-40.0) % Smyth % (Auto) (0.0-10.0) % Eos % (Auto) (0.0-4.0) % Baso % (Auto) (0.0-2.0) % Neut # (Auto) (1.8-7.0) K/uL Lymph # (Auto) (1.0-4.3) K/uL Smyth # (Auto) (0.0-0.8) K/uL Eos # (Auto) (0.0-0.7) K/uL Baso # (Auto) (0.0-0.2) K/uL ESR (0-15) mm/hr Sodium (132-148) mmol/L Potassium (3.6-5.2) mmol/L Chloride (98-107) mmol/L Carbon Dioxide (22-30) mmol/L Anion Gap (10-20) BUN (9-20) mg/dL Creatinine (0.8-1.5) mg/dL Est GFR ( Amer) Est GFR (Non-Af Amer) POC Glucose (mg/dL) 110 (65-110) mg/dL Random Glucose (75-110) mg/dL Calcium (8.6-10.4) mg/dl Phosphorus (2.5-4.5) mg/dL Magnesium (1.6-2.3) mg/dL Total Bilirubin (0.2-1.3) mg/dL AST (17-59) U/L ALT (21-72) U/L Alkaline Phosphatase (38-126) U/L C-React Prot High Sens (1.00-3.00) mg/L Total Protein (6.3-8.3) g/dL Albumin (3.5-5.0) g/dL Globulin (2.2-3.9) gm/dL Albumin/Globulin Ratio (1.0-2.1) Triglycerides (0-149) mg/dL Cholesterol (0-199) mg/dL LDL Cholesterol Direct (0-129) mg/dL HDL Cholesterol (30-70) mg/dL Homocysteine (6.6-14.8) umol/L Free T4 (0.78-2.19) ng/dL TSH 3rd Generation (0.46-4.68) mIU/L Vancomycin Trough (5.0-10.0) ug/mL Laboratory Results - last 24 hr 10/17/17 10/18/17 10/18/17 21:02 06:21 06:21 WBC 6.0 RBC 4.49 Hgb 12.6 Hct 37.2 MCV 82.9 MCH 28.0 MCHC 33.8 RDW 13.6 Plt Count 101 L MPV 10.0 Neut % (Auto) 60.8 Lymph % (Auto) 27.5 Smyth % (Auto) 8.2 Eos % (Auto) 2.8 Baso % (Auto) 0.7 Neut # (Auto) 3.7 Lymph # (Auto) 1.7 Smyth # (Auto) 0.5 Eos # (Auto) 0.2 Baso # (Auto) 0.0 ESR Sodium 143 Potassium 3.7 Chloride 109 H Carbon Dioxide 25 Anion Gap 12 BUN 19 Creatinine 1.1 Est GFR ( Amer) > 60 Est GFR (Non-Af Amer) > 60 POC Glucose (mg/dL) 110 Random Glucose 90 Calcium 8.9 Phosphorus 2.6 Magnesium 1.7 Total Bilirubin 0.8 AST 17 ALT 27 Alkaline Phosphatase 45 C-React Prot High Sens Total Protein 6.2 L Albumin 3.6 Globulin 2.6 Albumin/Globulin Ratio 1.4 Triglycerides Cholesterol LDL Cholesterol Direct HDL Cholesterol Homocysteine Free T4 TSH 3rd Generation Vancomycin Trough 10/18/17 10/18/17 10/18/17 07:28 09:57 09:57 WBC RBC Hgb Hct MCV MCH MCHC RDW Plt Count MPV Neut % (Auto) Lymph % (Auto) Smyth % (Auto) Eos % (Auto) Baso % (Auto) Neut # (Auto) Lymph # (Auto) Smyth # (Auto) Eos # (Auto) Baso # (Auto) ESR 15 Sodium Potassium Chloride Carbon Dioxide Anion Gap BUN Creatinine Est GFR ( Amer) Est GFR (Non-Af Amer) POC Glucose (mg/dL) 95 Random Glucose Calcium Phosphorus Magnesium Total Bilirubin AST ALT Alkaline Phosphatase C-React Prot High Sens Total Protein Albumin Globulin Albumin/Globulin Ratio Triglycerides 109 D Cholesterol 153 LDL Cholesterol Direct 83 HDL Cholesterol 29 L Homocysteine 10.2 Free T4 TSH 3rd Generation 1.28 Vancomycin Trough 10/18/17 10/18/17 10/18/17 09:57 09:57 11:23 WBC RBC Hgb Hct MCV MCH MCHC RDW Plt Count MPV Neut % (Auto) Lymph % (Auto) Smyth % (Auto) Eos % (Auto) Baso % (Auto) Neut # (Auto) Lymph # (Auto) Smyth # (Auto) Eos # (Auto) Baso # (Auto) ESR Sodium Potassium Chloride Carbon Dioxide Anion Gap BUN Creatinine Est GFR ( Amer) Est GFR (Non-Af Amer) POC Glucose (mg/dL) 192 H Random Glucose Calcium Phosphorus Magnesium Total Bilirubin AST ALT Alkaline Phosphatase C-React Prot High Sens 3.01 H Total Protein Albumin Globulin Albumin/Globulin Ratio Triglycerides Cholesterol LDL Cholesterol Direct HDL Cholesterol Homocysteine Free T4 0.81 TSH 3rd Generation 1.35 Vancomycin Trough 12.7 H 10/18/17 16:28 WBC RBC Hgb Hct MCV MCH MCHC RDW Plt Count MPV Neut % (Auto) Lymph % (Auto) Smyth % (Auto) Eos % (Auto) Baso % (Auto) Neut # (Auto) Lymph # (Auto) Smyth # (Auto) Eos # (Auto) Baso # (Auto) ESR Sodium Potassium Chloride Carbon Dioxide Anion Gap BUN Creatinine Est GFR ( Amer) Est GFR (Non-Af Amer) POC Glucose (mg/dL) 84 Random Glucose Calcium Phosphorus Magnesium Total Bilirubin AST ALT Alkaline Phosphatase C-React Prot High Sens Total Protein Albumin Globulin Albumin/Globulin Ratio Triglycerides Cholesterol LDL Cholesterol Direct HDL Cholesterol Homocysteine Free T4 TSH 3rd Generation Vancomycin Trough EKG/Cardiology Studies: Cardiology / EKG Studies 10/18/17 05:00 EKG [ELECTROCARDIOGRAM] DAILY Comment: Mode Of Transportation: Reason For Exam: r/o sss Critical Care Progress Note - Nutrition Nutrition: Nutrition Category Date Time Status Heart Healthy Diet [DIET] Diets 10/17/17 Breakfast Active Attending/Attestation - Attestation I have personally seen and examined this patient.: Yes I have fully participated in the care of the patient.: Yes I have reviewed all pertinent clinical information: Yes Notes (Text): 10/18/17 16:48 I have seen and examined the patient. Medical records, lab studies, and imaging were reviewed by me and a management plan was formulated on multidisciplinary rounds with resident Dr. Archibald. I agree with their documented assessment and plan. bradycardia still present, currently asymptomatic. Echo performed, patient to make a decision about cardiac catheterization. EPS consulted for evaluation for need of a permanent pacemaker. Critical Care Time 35 minutes. Multi-disciplinary rounds were performed with house staff, nursing, speech therapy, respiratory therapy, pharmacy and nutrition with integrated input from the primary team/attending and other consulting services. The documented time is cumulative and includes review of patient data/exams/labs/chart review and examination of the patient on rounds and throughout the day; time is exclusive of any procedures or teaching time. 10/18/17 16:50
[2017-10-18] MEDS: Enoxaparin 30 mg Syringe SC SCH (09:21)
[2017-10-18 10:36] LABS: FREE T4 0.81 ng/dL (0.78-2.19)
--- NOTE | 2017-10-18 11:24 | CP.PCM.PN ---
<Rajiv Fernández - Last Filed: 10/18/17 13:33> Subjective - Date & Time of Evaluation Date of Evaluation: 10/18/17 Time of Evaluation: 09:00 - Subjective Subjective: Rajiv Fernández, PGY1 Cardiology Progress Note for Dr. Peng Patient was examined at bedside this morning, sitting in chair out of bed. Patient denied headache, lightheadedness, dizziness, chest pain, shortness of breath, abdominal pain, nausea, vomiting, diarrhea. Patient had Head CT done on 10/16; read indicated basal ganglia lacunar infarct. Patient may need follow up MRI brain, however, patient said that he feels claustrophobic and does not want the test. Patient is currently off dopamine gtt. Patient says that he is feeling well. No overnight changes. A Full 12 point ROS was conducted and unremarkable except as stated above. Objective - Vital Signs/Intake and Output Vital Signs (last 24 hours): Temp Pulse Resp BP Pulse Ox 98.1 F 69 13 120/70 95 10/18/17 08:00 10/18/17 10:31 10/18/17 10:31 10/18/17 10:31 10/18/17 10:31 Intake and Output: 10/18/17 10/18/17 06:59 18:59 Intake Total 450 350 Output Total 700 Balance -250 350 - Medications Medications: Current Medications Aspirin (Aspirin Chewable) 81 mg PO DAILY [facility] Last Admin: 10/18/17 09:20 Dose: 81 mg Clopidogrel Bisulfate (Plavix) 75 mg PO DAILY [facility] Last Admin: 10/18/17 09:20 Dose: 75 mg Dextrose (Glutose 15) 15 gm PO ONCE PRN; Protocol PRN Reason: Hypoglycemia Protocol Dextrose (Dextrose 50% Inj) 0 ml IV STAT PRN; Protocol PRN Reason: Hypoglycemia Protocol Enoxaparin Sodium (Lovenox) 30 mg SC DAILY [facility] Last Admin: 10/18/17 09:21 Dose: 30 mg Famotidine (Pepcid) 20 mg PO BID [facility] Last Admin: 10/18/17 09:20 Dose: 20 mg Glucagon (Glucagen Diagnostic Kit) 1 mg IM STAT PRN; Protocol PRN Reason: Hypoglycemia Protocol Dextrose (Dextrose 5% In Water 1000 Ml) 1,000 mls @ 0 mls/hr IV .Q0M PRN; Protocol; Per Protocol PRN Reason: Hypoglycemia Protocol Insulin Human Regular (Novolin R) 0 unit SC ACHS [facility] PRN Reason: Protocol Last Admin: 10/18/17 08:00 Dose: Not Given Ondansetron HCl (Zofran Inj) 4 mg IVP Q4 PRN PRN Reason: nausea/vomiting - Labs Labs: 10/18/17 06:21 10/18/17 06:21 PT 12.7 SECONDS (9.7-12.2) H 10/16/17 19:46 INR 1.2 10/16/17 19:46 APTT 29 SECONDS (21-34) 10/16/17 19:46 - Constitutional Appears: Well - Head Exam Head Exam: ATRAUMATIC, NORMAL INSPECTION, NORMOCEPHALIC - Eye Exam Eye Exam: EOMI, Normal appearance, PERRL Pupil Exam: NORMAL ACCOMODATION - ENT Exam ENT Exam: Mucous Membranes Moist, Normal Exam - Neck Exam Neck Exam: Full ROM, Normal Inspection - Respiratory Exam Respiratory Exam: Clear to Ausculation Bilateral. absent: Accessory Muscle Use , Chest Wall Tenderness, Decreased Breath Sounds, Rales, Rhonchi, Wheezes, Respiratory Distress, Stridor - Cardiovascular Exam Cardiovascular Exam: REGULAR RHYTHM, Murmur (systolic murmur (Aortic valve replacement)). absent: Bradycardia, Tachycardia - GI/Abdominal Exam GI & Abdominal Exam: Soft, Normal Bowel Sounds. absent: Bruit, Distended, Tenderness, Mass, Organomegaly, Rebound - Extremities Exam Extremities Exam: Full ROM, Normal Capillary Refill, Normal Inspection. absent : Calf Tenderness, Joint Swelling, Pedal Edema, Tenderness - Back Exam Back Exam: NORMAL INSPECTION - Neurological Exam Neurological Exam: Alert, Awake, CN II-XII Intact, Normal Gait, Oriented x3 - Skin Skin Exam: Dry, Intact, Normal Color, Warm. absent: Cyanosis, Diaphoretic, Erythema Assessment and Plan - Assessment and Plan (Free Text) Assessment: Patient is a 67 y/o M with PMHx of HTN, HLD, DM, Aortic Valve Replacement (2014) who presented with acute dizziness, diaphoresis, headache, nausea, vomiting. Patient BIBA; given ASA/nitro sublingual x2 by EMS. In ED, HR was 48, given atropine without improvement. Started on dopamine gtt. Head CT, CXR, CT Chest done. Transferred to ICU for management. Cardiology consulted for symptomatic bradycardia. Neurology is also following due to basal ganglia lacunar infarct found on Head CT, r/o cardioembolic source. Patient has been asymptomatic in the unit with vital signs stable. Plan: Symptomatic Sinus Bradycardia - EKG (most recent, 10/17): Rate 96 bpm. Sinus rhythm with premature supraventricular complexes. LBBB. - no longer on dopamine gtt - Current vital signs stable; normotensive with MAP > 65 and normal heart rate - Currently asymptomatic; denies cp, sob, palpitations, diaphoresis - ECHO (10/17): LVEF of 35.6%, mild concentric LVH, moderately to severely impaired systolic function, regional wall motion abnormalities, bioprosthetic aortic valve, mild to moderate valvular aortic stenosis, mild AR, mild TR, mild pulmonary htn. - EKG (ED): HR 48, sinus bradycardia - Chest CT (10/16): shows no acute findings - History of aortic valve replacement (08/2014) Acute onset Headache and Dizziness - Head CT (10/16) shows left basal ganglia lacunar infarct, chronic changes (see full report). Brain MRI suggested. - pt is refusing brain MRI due to claustrophobia - Currently no headaches or dizziness; Neurologic exam is wnl & no focal neurological defects - Neurology is following the case, appreciate recs; they recommend f/u WILDER and carotid doppler to evaluate for cardioembolic source - r/o sepsis: blood cx negative x2 (prelim) and negative for MRSA; c/w antibiotic coverage HTN/HLD - Currently normotensive - c/w home meds - Maintain MAP > 65 DM - ISS - Accuchecks - Maintain euglycemia GI PPX: pepcid DVT ppx: lovenox Dispo: Patient is still being managed in the ICU. Case was discussed and reviewed with Fer[employer] Operator Dr. Peng. Please see further recommendations as per Dr. Peng. <Ayaz Peng - Last Filed: 10/19/17 00:11> Objective - Vital Signs/Intake and Output Vital Signs (last 24 hours): Temp Pulse Resp BP Pulse Ox 98.1 F 90 16 123/69 93 L 10/18/17 16:00 10/18/17 19:01 10/18/17 19:01 10/18/17 19:01 10/18/17 19:01 Intake and Output: 10/18/17 10/19/17 18:59 06:59 Intake Total 770 0 Output Total 650 Balance 120 0 - Medications Medications: Current Medications Aspirin (Aspirin Chewable) 81 mg PO DAILY [facility] Last Admin: 10/18/17 09:20 Dose: 81 mg Clopidogrel Bisulfate (Plavix) 75 mg PO DAILY [facility] Last Admin: 10/18/17 09:20 Dose: 75 mg Dextrose (Glutose 15) 15 gm PO ONCE PRN; Protocol PRN Reason: Hypoglycemia Protocol Dextrose (Dextrose 50% Inj) 0 ml IV STAT PRN; Protocol PRN Reason: Hypoglycemia Protocol Enoxaparin Sodium (Lovenox) 30 mg SC DAILY [facility] Last Admin: 10/18/17 09:21 Dose: 30 mg Famotidine (Pepcid) 20 mg PO BID [facility] Last Admin: 10/18/17 17:14 Dose: 20 mg Glucagon (Glucagen Diagnostic Kit) 1 mg IM STAT PRN; Protocol PRN Reason: Hypoglycemia Protocol Dextrose (Dextrose 5% In Water 1000 Ml) 1,000 mls @ 0 mls/hr IV .Q0M PRN; Protocol; Per Protocol PRN Reason: Hypoglycemia Protocol Insulin Human Regular (Novolin R) 0 unit SC ACHS [facility] PRN Reason: Protocol Last Admin: 10/18/17 21:35 Dose: Not Given Ondansetron HCl (Zofran Inj) 4 mg IVP Q4 PRN PRN Reason: nausea/vomiting - Labs Labs: 10/18/17 06:21 10/18/17 06:21 PT 12.7 SECONDS (9.7-12.2) H 10/16/17 19:46 INR 1.2 10/16/17 19:46 APTT 29 SECONDS (21-34) 10/16/17 19:46 Assessment and Plan (1) CHB (complete heart block) Status: Acute (2) CHF (congestive heart failure) Status: Acute (3) Dizziness Status: Acute (4) Headache Status: Acute (5) Symptomatic bradycardia Status: Acute (6) S/P AVR (aortic valve replacement) Status: Acute (7) CAD (coronary artery disease) Status: Acute Attending/Attestation - Attestation I have personally seen and examined this patient.: Yes I have fully participated in the care of the patient.: Yes I have reviewed all pertinent clinical information, including history, physical exam and plan: Yes Notes (Text): 10/19/17 00:10 echo shows regional WMA with new onset drop in EF will need ischemic evaluation with cardiac cath patient reluctant for invasive procedure
--- NOTE | 2017-10-18 12:49 | CP.PCM.PN ---
Subjective - Date & Time of Evaluation Date of Evaluation: 10/18/17 Time of Evaluation: 11:45 - Subjective Subjective: Patient was seen and examined by me He denied chest pain, denied shortness of breath, denied palpitations, denied abdominal pain, denied nausea/vommitting. The patient reported no acute events overnight. He is off of the IV dopamine. Overnight the blood pressure and HR were stable CT scan of head returned and reported lacunar/basal infarcts. The patient was not able to tolerate MRI yesterday due to claustrophobia, there is pending a repeat CT of head Objective - Vital Signs/Intake and Output Vital Signs (last 24 hours): Temp Pulse Resp BP Pulse Ox 98.3 F 77 16 116/52 L 96 10/18/17 12:00 10/18/17 12:01 10/18/17 12:01 10/18/17 12:02 10/18/17 12:01 Intake and Output: 10/18/17 10/18/17 06:59 18:59 Intake Total 450 350 Output Total 700 Balance -250 350 - Medications Medications: Current Medications Aspirin (Aspirin Chewable) 81 mg PO DAILY [facility] Last Admin: 10/18/17 09:20 Dose: 81 mg Clopidogrel Bisulfate (Plavix) 75 mg PO DAILY [facility] Last Admin: 10/18/17 09:20 Dose: 75 mg Dextrose (Glutose 15) 15 gm PO ONCE PRN; Protocol PRN Reason: Hypoglycemia Protocol Dextrose (Dextrose 50% Inj) 0 ml IV STAT PRN; Protocol PRN Reason: Hypoglycemia Protocol Enoxaparin Sodium (Lovenox) 30 mg SC DAILY [facility] Last Admin: 10/18/17 09:21 Dose: 30 mg Famotidine (Pepcid) 20 mg PO BID [facility] Last Admin: 10/18/17 09:20 Dose: 20 mg Glucagon (Glucagen Diagnostic Kit) 1 mg IM STAT PRN; Protocol PRN Reason: Hypoglycemia Protocol Dextrose (Dextrose 5% In Water 1000 Ml) 1,000 mls @ 0 mls/hr IV .Q0M PRN; Protocol; Per Protocol PRN Reason: Hypoglycemia Protocol Insulin Human Regular (Novolin R) 0 unit SC ACHS [facility] PRN Reason: Protocol Last Admin: 10/18/17 11:42 Dose: Not Given Ondansetron HCl (Zofran Inj) 4 mg IVP Q4 PRN PRN Reason: nausea/vomiting - Labs Labs: 10/18/17 06:21 10/18/17 06:21 PT 12.7 SECONDS (9.7-12.2) H 10/16/17 19:46 INR 1.2 10/16/17 19:46 APTT 29 SECONDS (21-34) 10/16/17 19:46 - Constitutional Appears: Well, No Acute Distress - Head Exam Head Exam: NORMAL INSPECTION, NORMOCEPHALIC - Eye Exam Eye Exam: EOMI, Normal appearance - ENT Exam ENT Exam: Mucous Membranes Moist - Respiratory Exam Respiratory Exam: Clear to Ausculation Bilateral, NORMAL BREATHING PATTERN - GI/Abdominal Exam GI & Abdominal Exam: Soft, Normal Bowel Sounds. absent: Tenderness - Neurological Exam Neurological Exam: Alert, Awake Neuro motor strength exam: Left Upper Extremity: 5, Right Upper Extremity: 5, Left Lower Extremity: 5, Right Lower Extremity: 5 - Psychiatric Exam Psychiatric exam: Normal Affect, Normal Mood - Skin Skin Exam: Normal Color, Warm Assessment and Plan - Assessment and Plan (Free Text) Assessment: Assessment & Plan (1) Heart Block and Bradycardia Assessment and Plan: 10/18: Doing better, now off of IV dopamine and pending EP cardiology review the case 10/17 Currently on IV dopamine, will need to have transcutanous pacer pads on as a precaution in case something should happen tonight. HR on telemetry is currently on 80s and appears NSR, however there is one 12 EKG that looks like heart block. Will need EP cardiology evaluation. Avoid BB. (2) Hypotension Assessment and Plan: 10/18 Off of IV dopamine Currently systolic now in the 120s Plasma Cortisol: 30.4 ( WNL) TSH and Free T4: 1.42 and 1.06, respectively Troponin: Negative X1 Chest CT w/o IV contrast: No acute findings (3) Headache Assessment and Plan: Patient refused the MRI. Continue to monitor. Head CT: No hemorrhage, No edema. Opacified maxillary sinuses with periosteal thickening (Chronic sinusitis). Calcified mass in the right nasal airway. Vancomycin 1gm IV Q12H and Zosyn 3.375gm IV Q6H ( Empirical treatment for infectious etiology) (4) Nausea & vomiting Assessment and Plan: Zofran 4mg IV Q6H PRN Protonix 40mg IV daily (5) Diabetes mellitus Assessment and Plan: Accuckes ISS- Low dose (6) Prophylactic measure Assessment and Plan: GI: Protonix 40mg IV daily DVT: Lovenox 30mg SC daily
--- NOTE | 2017-10-18 13:41 | CARD ---
APPROVED REPORT Date of service: 10/16/2017 EKG Measurement Heart [id number] <Conclusion> Sinus bradycardia with sinus arrhythmia Anteroseptal infarct, age undetermined ST & T wave abnormality, consider lateral ischemia Abnormal ECG
--- NOTE | 2017-10-18 14:09 | CT ---
Date of service: 10/18/2017 PROCEDURE: CT HEAD WITHOUT CONTRAST. HISTORY: f/u ischemic cva COMPARISON: 10/16/2017 TECHNIQUE: Axial computed tomography images were obtained through the head/brain without intravenous contrast. Radiation dose: Total exam DLP = 1070.45 mGy-cm. This CT exam was performed using one or more of the following dose reduction techniques: Automated exposure control, adjustment of the mA and/or kV according to patient size, and/or use of iterative reconstruction technique. FINDINGS: HEMORRHAGE: No intracranial hemorrhage. BRAIN: No mass effect or edema. No atrophy. No chronic white matter ischemic change. Small focal rounded CSF attenuation in the high frontoparietal left deep white matter consistent with old white matter lacunar. No evidence of acute infarct. VENTRICLES: Unremarkable. No hydrocephalus. CALVARIUM: Unremarkable. PARANASAL SINUSES: Extensive chronic bilateral maxillary sinusitis with dense calcification in the right maxillary antrum protruding into the ethmoid sinus. This may represent of fungal sinusitis. MASTOID AIR CELLS: Unremarkable as visualized. No inflammatory changes. OTHER FINDINGS: None. IMPRESSION: No evidence of acute infarct. No intracranial mass or hemorrhage. 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
--- NOTE | 2017-10-18 22:06 | CP.PCM.CON ---
History of Present Illness - History of Present Illness History of Present Illness: Cardiac-Electrophysiology Note Chart imaging telemetry and electrocardiography reviewed This patient presented with sudden onset of dizziness diaphoresis headache nausea and vomiting while working at the [employer] ; EMS found him "hypotensive and administered nitroglycerine sublingually"; in the ER was noted to be in bradycardia and hypotension; dopamine was started and transferred to the ICU; Subsequent work up showed borderline LV systolic function a bioprosthetic aortic avalve with mild stenosis; the initial bradycardia responded to dopamine although had minimal response to atropine There is no history of palpitations syncope arrhythmia consideration for pacemaker in the past Past medical/Surgical history: Systemic hypertension Hyperlipidemia Aortic valve stenosis; S/P AV replacement at [facility] in 2016 Protienuria ? biopsy of the kidney Social: no history of drug abuse smoking or alcohol abuse Exam: No distress Lying down flat Normal venous pressures Normal carotids No goitr Clear lungs Midline scar; ?PMI Normal heart sounds No edema Alert oriented x 3 no nystagmus; no defecit CXR: reviewed: cardiomegaly EKG: initial: severe sinus bradycardia; Junctional narrow complex escape rhythm Subsequent: sinus rhythm followed by interval development of cLBBB and runs of wide complex tachycardia @ 120 beats per minute with AV dissociation; there is no documentary evidence of an AV block available Labs: reviewed Echo: reviewed: preserved LV systolic function Past Patient History - Infectious Disease Hx of Infectious Diseases: None - Past Medical History & Family History Past Medical History?: Yes - Past Social History Smoking Status: Never Smoked Occupation: works at the [employer] Drugs: Denies Home Situation {Lives}: With Family - CARDIAC Hx Cardiac Disorders: Yes Hx Congestive Heart Failure: Yes Hx Hypercholesterolemia: Yes Hx Hypertension: Yes - PULMONARY Hx Respiratory Disorders: No - NEUROLOGICAL Hx Neurological Disorder: No - HEENT Hx HEENT Problems: Yes Other/Comment: wearseyeglasses - RENAL Hx Chronic Kidney Disease: No - ENDOCRINE/METABOLIC Hx Endocrine Disorders: Yes Hx Diabetes Mellitus Type 2: Yes - HEMATOLOGICAL/ONCOLOGICAL Hx Blood Disorders: No - INTEGUMENTARY Hx Dermatological Problems: No - MUSCULOSKELETAL/RHEUMATOLOGICAL Hx Musculoskeletal Disorders: No - GASTROINTESTINAL Hx Gastrointestinal Disorders: No - GENITOURINARY/GYNECOLOGICAL Hx Genitourinary Disorders: No - PSYCHIATRIC Hx Psychophysiologic Disorder: No - SURGICAL HISTORY Hx Surgeries: Yes (KIDNEY BX) Hx Open Heart Surgery: Yes (aortic valve replac, 2 yrs ago) - ANESTHESIA Hx Anesthesia: Yes Hx Anesthesia Reactions: No Hx Malignant Hyperthermia: No Has any member of the family had a problem w/ anesthesia?: No Meds Allergies/Adverse Reactions: Allergies Allergy/AdvReac Type Severity Reaction Status Date / Time No Known Allergies Allergy Verified 10/16/17 19:32 - Medications Medications: Current Medications Aspirin (Aspirin Chewable) 81 mg PO DAILY [facility] Last Admin: 10/18/17 09:20 Dose: 81 mg Clopidogrel Bisulfate (Plavix) 75 mg PO DAILY [facility] Last Admin: 10/18/17 09:20 Dose: 75 mg Dextrose (Glutose 15) 15 gm PO ONCE PRN; Protocol PRN Reason: Hypoglycemia Protocol Dextrose (Dextrose 50% Inj) 0 ml IV STAT PRN; Protocol PRN Reason: Hypoglycemia Protocol Enoxaparin Sodium (Lovenox) 30 mg SC DAILY [facility] Last Admin: 10/18/17 09:21 Dose: 30 mg Famotidine (Pepcid) 20 mg PO BID [facility] Last Admin: 10/18/17 17:14 Dose: 20 mg Glucagon (Glucagen Diagnostic Kit) 1 mg IM STAT PRN; Protocol PRN Reason: Hypoglycemia Protocol Dextrose (Dextrose 5% In Water 1000 Ml) 1,000 mls @ 0 mls/hr IV .Q0M PRN; Protocol; Per Protocol PRN Reason: Hypoglycemia Protocol Insulin Human Regular (Novolin R) 0 unit SC ACHS [facility] PRN Reason: Protocol Last Admin: 10/18/17 21:35 Dose: Not Given Ondansetron HCl (Zofran Inj) 4 mg IVP Q4 PRN PRN Reason: nausea/vomiting Results - Vital Signs Recent Vital Signs: Last Vital Signs Temp 98.1 F 10/18/17 16:00 Pulse 90 10/18/17 19:01 Resp 16 10/18/17 19:01 BP 123/69 10/18/17 19:01 Pulse Ox 93 L 10/18/17 19:01 - Labs Result Diagrams: 10/18/17 06:21 10/18/17 06:21 Labs: Laboratory Results - last 24 hr 10/18/17 10/18/17 10/18/17 06:21 06:21 07:28 WBC 6.0 RBC 4.49 Hgb 12.6 Hct 37.2 MCV 82.9 MCH 28.0 MCHC 33.8 RDW 13.6 Plt Count 101 L MPV 10.0 Neut % (Auto) 60.8 Lymph % (Auto) 27.5 Armstrong % (Auto) 8.2 Eos % (Auto) 2.8 Baso % (Auto) 0.7 Neut # (Auto) 3.7 Lymph # (Auto) 1.7 Armstrong # (Auto) 0.5 Eos # (Auto) 0.2 Baso # (Auto) 0.0 ESR Sodium 143 Potassium 3.7 Chloride 109 H Carbon Dioxide 25 Anion Gap 12 BUN 19 Creatinine 1.1 Est GFR ( Amer) > 60 Est GFR (Non-Af Amer) > 60 POC Glucose (mg/dL) 95 Random Glucose 90 Calcium 8.9 Phosphorus 2.6 Magnesium 1.7 Total Bilirubin 0.8 AST 17 ALT 27 Alkaline Phosphatase 45 C-React Prot High Sens Total Protein 6.2 L Albumin 3.6 Globulin 2.6 Albumin/Globulin Ratio 1.4 Triglycerides Cholesterol LDL Cholesterol Direct HDL Cholesterol Homocysteine Free T4 TSH 3rd Generation Vancomycin Trough 10/18/17 10/18/17 10/18/17 09:57 09:57 09:57 WBC RBC Hgb Hct MCV MCH MCHC RDW Plt Count MPV Neut % (Auto) Lymph % (Auto) Armstrong % (Auto) Eos % (Auto) Baso % (Auto) Neut # (Auto) Lymph # (Auto) Armstrong # (Auto) Eos # (Auto) Baso # (Auto) ESR 15 Sodium Potassium Chloride Carbon Dioxide Anion Gap BUN Creatinine Est GFR ( Amer) Est GFR (Non-Af Amer) POC Glucose (mg/dL) Random Glucose Calcium Phosphorus Magnesium Total Bilirubin AST ALT Alkaline Phosphatase C-React Prot High Sens 3.01 H Total Protein Albumin Globulin Albumin/Globulin Ratio Triglycerides 109 D Cholesterol 153 LDL Cholesterol Direct 83 HDL Cholesterol 29 L Homocysteine 10.2 Free T4 0.81 TSH 3rd Generation 1.28 1.35 Vancomycin Trough 10/18/17 10/18/17 10/18/17 09:57 11:23 16:28 WBC RBC Hgb Hct MCV MCH MCHC RDW Plt Count MPV Neut % (Auto) Lymph % (Auto) Armstrong % (Auto) Eos % (Auto) Baso % (Auto) Neut # (Auto) Lymph # (Auto) Armstrong # (Auto) Eos # (Auto) Baso # (Auto) ESR Sodium Potassium Chloride Carbon Dioxide Anion Gap BUN Creatinine Est GFR ( Amer) Est GFR (Non-Af Amer) POC Glucose (mg/dL) 192 H 84 Random Glucose Calcium Phosphorus Magnesium Total Bilirubin AST ALT Alkaline Phosphatase C-React Prot High Sens Total Protein Albumin Globulin Albumin/Globulin Ratio Triglycerides Cholesterol LDL Cholesterol Direct HDL Cholesterol Homocysteine Free T4 TSH 3rd Generation Vancomycin Trough 12.7 H 10/18/17 21:08 WBC RBC Hgb Hct MCV MCH MCHC RDW Plt Count MPV Neut % (Auto) Lymph % (Auto) Armstrong % (Auto) Eos % (Auto) Baso % (Auto) Neut # (Auto) Lymph # (Auto) Armstrong # (Auto) Eos # (Auto) Baso # (Auto) ESR Sodium Potassium Chloride Carbon Dioxide Anion Gap BUN Creatinine Est GFR ( Amer) Est GFR (Non-Af Amer) POC Glucose (mg/dL) 102 Random Glucose Calcium Phosphorus Magnesium Total Bilirubin AST ALT Alkaline Phosphatase C-React Prot High Sens Total Protein Albumin Globulin Albumin/Globulin Ratio Triglycerides Cholesterol LDL Cholesterol Direct HDL Cholesterol Homocysteine Free T4 TSH 3rd Generation Vancomycin Trough Assessment & Plan - Assessment and Plan (Free Text) Assessment: Mr. Oglesby presented with sudden onset of dizziness diaphoresis nausea vomiting headache and was noted to be hypotensive and bradycardia; the latters temporal relation to the administration of nitroglycerine is unclear; subsequently was noted to be in severe sinus bradycardia junctional escape rhythm and interval development of a complete LBBB. This on a background of systemic hypertension and a bioprosthetic aortic valve replacement and preserved LV systolic function and presumed normal coronary arteries Its difficult to unify the findings in a clinical syndrome and the effort is confounded by the administration of nitroglycerine There is circumstantial evidence of a primary hemodynamic event (cf. Vertigo hypoglycemia or a neurological event) related to the bradycardia. The latter could be due to a vagal reflex initiated by prolonged standing at work (albiet not unusual for his work) or a visceeral reflex initiated by nausea vomiting (? causal factor) worsened by nitroglycerine or severe paroxysmal and transient failure of the sinus node and a junctional escape rhythm; the short runs of wide complex tachycardia with AV dissociation suggests an accelerated idioventricular rhythm likely benign given normal LV systolic function Options include exclusion of coronary and thyroid disease, a tilt table followed by an EP study alternatively assuming a primary conduction abnormality its not unreasonable to implant a device In the interim would avoid dane stressors (medications electrolytes etc) DW patient at length issues prognosis procedures and risks Plan: See assessment - Date & Time Date: 10/18/17 Time: 22:47
--- NOTE | 2017-10-19 00:07 | CP.PCM.PN ---
Subjective - Date & Time of Evaluation Date of Evaluation: 10/18/17 Time of Evaluation: 22:00 - Subjective Subjective: echo reviewed EF impaired Objective - Vital Signs/Intake and Output Vital Signs (last 24 hours): Temp Pulse Resp BP Pulse Ox 98.1 F 90 16 123/69 93 L 10/18/17 16:00 10/18/17 19:01 10/18/17 19:01 10/18/17 19:01 10/18/17 19:01 Intake and Output: 10/18/17 10/19/17 18:59 06:59 Intake Total 770 0 Output Total 650 Balance 120 0 - Medications Medications: Current Medications Aspirin (Aspirin Chewable) 81 mg PO DAILY [facility] Last Admin: 10/18/17 09:20 Dose: 81 mg Clopidogrel Bisulfate (Plavix) 75 mg PO DAILY [facility] Last Admin: 10/18/17 09:20 Dose: 75 mg Dextrose (Glutose 15) 15 gm PO ONCE PRN; Protocol PRN Reason: Hypoglycemia Protocol Dextrose (Dextrose 50% Inj) 0 ml IV STAT PRN; Protocol PRN Reason: Hypoglycemia Protocol Enoxaparin Sodium (Lovenox) 30 mg SC DAILY [facility] Last Admin: 10/18/17 09:21 Dose: 30 mg Famotidine (Pepcid) 20 mg PO BID [facility] Last Admin: 10/18/17 17:14 Dose: 20 mg Glucagon (Glucagen Diagnostic Kit) 1 mg IM STAT PRN; Protocol PRN Reason: Hypoglycemia Protocol Dextrose (Dextrose 5% In Water 1000 Ml) 1,000 mls @ 0 mls/hr IV .Q0M PRN; Protocol; Per Protocol PRN Reason: Hypoglycemia Protocol Insulin Human Regular (Novolin R) 0 unit SC [facility] PRN Reason: Protocol Last Admin: 10/18/17 21:35 Dose: Not Given Ondansetron HCl (Zofran Inj) 4 mg IVP Q4 PRN PRN Reason: nausea/vomiting - Labs Labs: 10/18/17 06:21 10/18/17 06:21 PT 12.7 SECONDS (9.7-12.2) H 10/16/17 19:46 INR 1.2 10/16/17 19:46 APTT 29 SECONDS (21-34) 10/16/17 19:46 - Constitutional Appears: Well - Head Exam Head Exam: ATRAUMATIC, NORMAL INSPECTION, NORMOCEPHALIC - Eye Exam Eye Exam: EOMI, Normal appearance, PERRL Pupil Exam: NORMAL ACCOMODATION, PERRL - ENT Exam ENT Exam: Mucous Membranes Moist, Normal Exam - Neck Exam Neck Exam: Full ROM, Normal Inspection. absent: Lymphadenopathy - Respiratory Exam Respiratory Exam: Rales, NORMAL BREATHING PATTERN - Cardiovascular Exam Cardiovascular Exam: REGULAR RHYTHM, +S1, +S2, Murmur - GI/Abdominal Exam GI & Abdominal Exam: Soft, Normal Bowel Sounds. absent: Tenderness - Extremities Exam Extremities Exam: Full ROM, Normal Capillary Refill, Normal Inspection. absent : Joint Swelling, Pedal Edema - Back Exam Back Exam: NORMAL INSPECTION - Neurological Exam Neurological Exam: Alert, Awake, CN II-XII Intact, Normal Gait, Oriented x3 - Psychiatric Exam Psychiatric exam: Normal Affect, Normal Mood - Skin Skin Exam: Dry, Intact, Normal Color, Warm Assessment and Plan (1) CHB (complete heart block) Assessment & Plan: etiology vagal vs. SSS EP evaluation Status: Acute (2) CHF (congestive heart failure) Assessment & Plan: new onset will need ischemic evaluation bb, acei Status: Acute (3) Dizziness Status: Acute (4) Headache Status: Acute (5) Symptomatic bradycardia Status: Acute (6) S/P AVR (aortic valve replacement) Status: Acute (7) CAD (coronary artery disease) Status: Acute
[2017-10-19 06:07] LABS: BASO # 0.1 K/uL (0.0-0.2); BASO % 1.2 % (0.0-2.0); EOS # 0.2 K/uL (0.0-0.7); EOS % 3.3 % (0.0-4.0); HEMOGLOBIN 13.3 g/dL (12.0-18.0); LYMPH % 29.8 % (20.0-40.0); MEAN CELL VOLUME 81.6 fL (80.0-94.0); MEAN CORPUSCULAR HEMOGLOBIN 28.2 pg (27.0-31.0); MEAN CORPUSCULAR HGB CONC 34.5 g/dL (33.0-37.0); MEAN PLATELET VOLUME 9.5 fL (7.2-11.7); MONO # 0.6 K/uL (0.0-0.8); MONO % 8.7 % (0.0-10.0); NEUT # 3.7 K/uL (1.8-7.0); RBC 4.73 Mil/uL (4.40-5.90); RED CELL DISTRIBUTION WIDTH 13.8 % (11.5-14.5); WHITE BLOOD COUNT 6.6 K/uL (4.8-10.8)
[2017-10-19 06:25] LABS: ALB/GLOB RATIO 1.3 (1.0-2.1); ALBUMIN 3.7 g/dL (3.5-5.0); ALT/SGPT 27 U/L (21-72); AST/SGOT 16 U/L (17-59); BLOOD UREA NITROGEN 19 mg/dL (9-20); CALCIUM 9.4 mg/dl (8.6-10.4); GFR AFRICAN-AMERICAN > 60; GFR NON-AFRICAN AMERICAN > 60
--- NOTE | 2017-10-19 06:40 | CON ---
Copied To: Cristobal Manning MD Attending MD: Triston Leyva MD DATE: 10/18/2017 LOCATION: The patient is in room number ICU bed 2. REASON FOR THE CONSULTATION: Possible transient ischemic attack. CHIEF COMPLAINT. The patient was brought into [facility] on 10/16/2017 with history of abrupt onset of dizziness. From neurological point of view, I was called in to evaluate him for further management. HISTORY OF PRESENTING ILLNESS: Mr. Patrick Oglesby is a 67-year-old right-handed Irish-speaking male. 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 This lasted for about half an hour or so. He is also admitting some symptom of unsteady gait during that time period. This episode not associating with double vision or any new bulbar dysfunction. No history of fall. No history of involuntary movement associating with these symptoms. No similar episodes happened in the past. No history of recent travel. No history of head trauma. No history of neck injuries. PAST MEDICAL HISTORY: Status post aortic valve replacement few years ago. The patient has been known diabetic and had [id number] diabetes mellitus and hypertension. PERSONAL HISTORY: Denies smoking. Social drinking. 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 ALLERGIES: NO KNOWN ALLERGIES. REVIEW OF SYSTEMS: A 12-point system being reviewed. From neuro, abrupt onset of dizziness. MEDICATIONS: Aspirin, Glucagon, Lovenox, insulin, Pepcid, clopidogrel, vancomycin, ondansetron, piperacillin, rosuvastatin, losartan, glipizide. PHYSICAL EXAMINATION: VITAL SIGNS: Blood pressure 139/79 with mean arterial pressure of 87, respiratory rate 14, pulse rate 78, irregularly irregular. On the monitor, the patient shows multiple PVCs with right bundle-branch block. NECK: Supple. No carotid bruits. HEART: Sounds ejection systolic murmur. EXTREMITIES: No edema in legs. NEUROLOGICAL: Mental status examination, he is awake, alert and oriented to person, place and time. Speech is clear. Naming, repetition, fluency, comprehension all within normal. Cranial nerve examination, visual field intact. Pupils reactive to light. Extraocular movement normal. No nystagmus. Mild facial asymmetry manifesting as flattening of the right nasolabial fold. Hearing is normal. Tongue is midline. Good gag. Motor examination, outstretched hand with eyes closed. No drift noted. Power is symmetric on either side. Deep tendon reflexes, biceps, brachialis, triceps, knee and ankle all are hyperreflexic, 3+ on the right side, 1+ on the left side. Plantars are downgoing on both sides. No cortical sensory loss. Mild distal sensory motor neuropathy presenting with a decreased vibration sense and the temperature sense. Position sense is intact. Coordination is intact. Gait is deferred at this time. LABORATORY DATA: His workup including CT of the head being reviewed by me showed multiple subcortical ischemic process. One may be subacute process, but should be left subcortical stroke could be manifesting with right hemiparesis in addition to that scattered lucency seen all over the subcortical ischemic region consistent with small vessel disease. The patient also showed evidence of old left basal ganglia infarct. Chest, post-surgical changes. No acute changes. Blood workup; WBC 6, hemoglobin 12.6, hematocrit 37.2, platelet 101. Sodium 143, potassium 3.7, chloride 109, bicarbonate 35, GFR more than 60, BUN 19, creatinine 1.1, calcium 8.9, glucose 110. EKG; sinus, irregularly irregular with rate of 115, multiple PVCs and right bundle-branch block noted. CONCLUSION: Mr. Patrick Brownno been presenting as per neurological examination with abrupt onset of vertebrobasilar insufficiency manifesting with dizziness, vomiting, unsteady gait. Considering all risk factors, there is probably small vessel disease of ischemic process or either it could be from a cardiac source. The patient also showed evidence of mild distal sensory motor neuropathy, which probably secondary to his diabetes mellitus. RECOMMENDATIONS: 1. If the patient agrees, MRI of the brain and MR angiogram of the brain to be done. 2. Carotid Doppler to assess the stenosis. 3. Echocardiogram as well as a transesophageal echocardiogram is needed because of the showered periventricular ischemic changes in all anterior as well as the posterior territory region consistent with a cardiac source. 4. Dual antiplatelet as he has been getting in addition to statin and angiotensin receptor blockers that to be continued. Cardiology followup is strongly recommended. When the patient is stable, the patient should have MRI of the brain and MR angiogram that can be done as outpatient. Being a claustrophobic, he refuses to have the procedure done at this place. We will continuously follow him. The patient's condition has been discussed with the resident. Cristobal Manning MD
[2017-10-19] MEDS: (Novolin R) Insulin Human Regular 100 units/ml vial SC SCH ×4 (08:23→21:33)
[2017-10-19] MEDS ORDERED: Sodium Chloride 0.9% 1,000 ML IV SCH (09:00)
--- NOTE | 2017-10-19 09:58 | CP.CCUPN ---
<CristelaEverardo - Last Filed: 10/19/17 10:47> CCU Subjective - Physician Review Subjective (Free Text): Everardo Archibald DO PGY-1, ICU progress note for Dr. Earl Vilchis Pt seen and examined at bedside. Pt has no complaints at this time. No acute events overnight. He denies fever, headache, dizziness, lightheadedness, weakness, visual changes, chest pain, sob, palpitations, abdominal pain, n/v/d, numbness or tingling. A 12-point ROS was reviewed and is otherwise unremarkable. CCU Objective - Vital Signs / Intake & Output Vital Signs (Last 4 hours): Vital Signs Pulse Resp BP Pulse Ox 10/19/17 08:01 73 20 142/50 L 92 L 10/19/17 07:01 67 14 135/63 95 10/19/17 06:02 79 9 L 148/65 96 Intake and Output (Last 8hrs): Intake & Output 10/18/17 10/19/17 10/19/17 22:59 06:59 14:59 Intake Total 420 100 Output Total 600 300 Balance -180 -200 Weight 69.127 kg Intake: Intake, IV Amount 0 Right Antecubital 0 Right Hand 0 Oral 420 100 Output: Urine 600 300 Urine, Voided 600 300 Other: # Voids Urine, Voided 0 # Bowel Movements 0 1 - Physical Exam Head: Positive for: Atraumatic, Normocephalic Pupils: Positive for: PERRL Extroacular Muscles: Positive for: EOMI Mouth: Positive for: Moist Mucous Membranes Neck: Positive for: Normal Range of Motion Respiratory/Chest: Positive for: Clear to Auscultation, Good Air Exchange. Negative for: Respiratory Distress Cardiovascular: Positive for: Irregular Rhythm Abdomen: Positive for: Normal Bowel Sounds. Negative for: Tenderness (soft), Distention, Rebound Back: Positive for: Normal Inspection Upper Extremity: Positive for: Normal Inspection, NORMAL PULSES (3+ pulses in bilateral radial arteries) Lower Extremity: Positive for: Normal Inspection, NORMAL PULSES (3+ pulses in bilateral DPs) Neurological: Positive for: GCS=15 Skin: Positive for: Warm, Dry Psychiatric: Positive for: Alert, Oriented x 3 - Medications Active Medications: Active Medications Generic Name Dose Route Start Last Admin Trade Name Freq PRN Reason Stop Dose Admin Aspirin 81 mg 10/18/17 10:00 10/18/17 09:20 Aspirin Chewable PO 81 mg DAILY KEESHA Administration Clopidogrel Bisulfate 75 mg 10/18/17 10:00 10/18/17 09:20 Plavix PO 75 mg DAILY KEESHA Administration Dextrose 15 gm 10/17/17 11:14 Glutose 15 PO ONCE PRN Hypoglycemia Protocol Protocol Dextrose 0 ml 10/17/17 11:14 Dextrose 50% Inj IV STAT PRN Hypoglycemia Protocol Protocol Enoxaparin Sodium 30 mg 10/17/17 10:00 10/18/17 09:21 Lovenox SC 30 mg DAILY KEESHA Administration Famotidine 20 mg 10/18/17 10:00 10/18/17 17:14 Pepcid PO 20 mg BID KEESHA Administration Glucagon 1 mg 10/17/17 11:14 Glucagen Diagnostic Kit IM STAT PRN Hypoglycemia Protocol Protocol Dextrose 1,000 mls @ 0 mls/hr 10/17/17 11:14 Dextrose 5% In Water 1000 Ml IV .Q0M PRN Hypoglycemia Protocol Protocol Per Protocol Sodium Chloride 1,000 mls @ 75 mls/hr 10/19/17 09:00 Sodium Chloride 0.9% IV .[id number] [facility] Insulin Human Regular 0 unit 10/17/17 11:30 10/19/17 08:23 Novolin R SC Not Given ACHS [facility] Protocol Ondansetron HCl 4 mg 10/16/17 23:00 Zofran Inj IVP Q4 PRN nausea/vomiting - Patient Studies Lab Studies: Microbiology Studies 10/17/17 01:11 Blood Culture - Preliminary Blood-Venous NO GROWTH AFTER 48 HOURS 10/17/17 01:11 Blood Culture - Preliminary Blood-Venous NO GROWTH AFTER 48 HOURS 10/17/17 00:45 MRSA Culture (Admit) - Final Nose MRSA NOT DETECTED Lab Studies 10/19/17 10/19/17 10/18/17 Range/Units 06:00 06:00 21:08 WBC 6.6 (4.8-10.8) K/uL RBC 4.73 (4.40-5.90) Mil/uL Hgb 13.3 (12.0-18.0) g/dL Hct 38.6 (35.0-51.0) % MCV 81.6 (80.0-94.0) fL MCH 28.2 (27.0-31.0) pg MCHC 34.5 (33.0-37.0) g/dL RDW 13.8 (11.5-14.5) % Plt Count 102 L (130-400) K/uL MPV 9.5 (7.2-11.7) fL Neut % (Auto) 57.0 (50.0-75.0) % Lymph % (Auto) 29.8 (20.0-40.0) % [place] % (Auto) 8.7 (0.0-10.0) % Eos % (Auto) 3.3 (0.0-4.0) % Baso % (Auto) 1.2 (0.0-2.0) % Neut # (Auto) 3.7 (1.8-7.0) K/uL Lymph # (Auto) 2.0 (1.0-4.3) K/uL [place] # (Auto) 0.6 (0.0-0.8) K/uL Eos # (Auto) 0.2 (0.0-0.7) K/uL Baso # (Auto) 0.1 (0.0-0.2) K/uL ESR (0-15) mm/hr Sodium 142 (132-148) mmol/L Potassium 4.1 (3.6-5.2) mmol/L Chloride 109 H (98-107) mmol/L Carbon Dioxide 23 (22-30) mmol/L Anion Gap 14 (10-20) BUN 19 (9-20) mg/dL Creatinine 1.0 (0.8-1.5) mg/dL Est GFR ( Amer) > 60 Est GFR (Non-Af Amer) > 60 POC Glucose (mg/dL) 102 (65-110) mg/dL Random Glucose 99 (75-110) mg/dL Calcium 9.4 (8.6-10.4) mg/dl Phosphorus 2.8 (2.5-4.5) mg/dL Magnesium 1.6 (1.6-2.3) mg/dL Total Bilirubin 0.7 (0.2-1.3) mg/dL AST 16 L (17-59) U/L ALT 27 (21-72) U/L Alkaline Phosphatase 49 (38-126) U/L C-React Prot High Sens (1.00-3.00) mg/L Total Protein 6.6 (6.3-8.3) g/dL Albumin 3.7 (3.5-5.0) g/dL Globulin 2.9 (2.2-3.9) gm/dL Albumin/Globulin Ratio 1.3 (1.0-2.1) Triglycerides (0-149) mg/dL Cholesterol (0-199) mg/dL LDL Cholesterol Direct (0-129) mg/dL HDL Cholesterol (30-70) mg/dL Homocysteine (6.6-14.8) umol/L Free T4 (0.78-2.19) ng/dL TSH 3rd Generation (0.46-4.68) mIU/L Vancomycin Trough (5.0-10.0) ug/mL 10/18/17 10/18/17 10/18/17 Range/Units 16:28 11:23 09:57 WBC (4.8-10.8) K/uL RBC (4.40-5.90) Mil/uL Hgb (12.0-18.0) g/dL Hct (35.0-51.0) % MCV (80.0-94.0) fL MCH (27.0-31.0) pg MCHC (33.0-37.0) g/dL RDW (11.5-14.5) % Plt Count (130-400) K/uL MPV (7.2-11.7) fL Neut % (Auto) (50.0-75.0) % Lymph % (Auto) (20.0-40.0) % [place] % (Auto) (0.0-10.0) % Eos % (Auto) (0.0-4.0) % Baso % (Auto) (0.0-2.0) % Neut # (Auto) (1.8-7.0) K/uL Lymph # (Auto) (1.0-4.3) K/uL [place] # (Auto) (0.0-0.8) K/uL Eos # (Auto) (0.0-0.7) K/uL Baso # (Auto) (0.0-0.2) K/uL ESR (0-15) mm/hr Sodium (132-148) mmol/L Potassium (3.6-5.2) mmol/L Chloride (98-107) mmol/L Carbon Dioxide (22-30) mmol/L Anion Gap (10-20) BUN (9-20) mg/dL Creatinine (0.8-1.5) mg/dL Est GFR ( Amer) Est GFR (Non-Af Amer) POC Glucose (mg/dL) 84 192 H (65-110) mg/dL Random Glucose (75-110) mg/dL Calcium (8.6-10.4) mg/dl Phosphorus (2.5-4.5) mg/dL Magnesium (1.6-2.3) mg/dL Total Bilirubin (0.2-1.3) mg/dL AST (17-59) U/L ALT (21-72) U/L Alkaline Phosphatase (38-126) U/L C-React Prot High Sens (1.00-3.00) mg/L Total Protein (6.3-8.3) g/dL Albumin (3.5-5.0) g/dL Globulin (2.2-3.9) gm/dL Albumin/Globulin Ratio (1.0-2.1) Triglycerides (0-149) mg/dL Cholesterol (0-199) mg/dL LDL Cholesterol Direct (0-129) mg/dL HDL Cholesterol (30-70) mg/dL Homocysteine (6.6-14.8) umol/L Free T4 (0.78-2.19) ng/dL TSH 3rd Generation (0.46-4.68) mIU/L Vancomycin Trough 12.7 H (5.0-10.0) ug/mL 10/18/1718 10/18/17 Range/Units 09:57 09:57 09:57 WBC (4.8-10.8) K/uL RBC (4.40-5.90) Mil/uL Hgb (12.0-18.0) g/dL Hct (35.0-51.0) % MCV (80.0-94.0) fL MCH (27.0-31.0) pg MCHC (33.0-37.0) g/dL RDW (11.5-14.5) % Plt Count (130-400) K/uL MPV (7.2-11.7) fL Neut % (Auto) (50.0-75.0) % Lymph % (Auto) (20.0-40.0) % [place] % (Auto) (0.0-10.0) % Eos % (Auto) (0.0-4.0) % Baso % (Auto) (0.0-2.0) % Neut # (Auto) (1.8-7.0) K/uL Lymph # (Auto) (1.0-4.3) K/uL [place] # (Auto) (0.0-0.8) K/uL Eos # (Auto) (0.0-0.7) K/uL Baso # (Auto) (0.0-0.2) K/uL ESR 15 (0-15) mm/hr Sodium (132-148) mmol/L Potassium (3.6-5.2) mmol/L Chloride (98-107) mmol/L Carbon Dioxide (22-30) mmol/L Anion Gap (10-20) BUN (9-20) mg/dL Creatinine (0.8-1.5) mg/dL Est GFR ( Amer) Est GFR (Non-Af Amer) POC Glucose (mg/dL) (65-110) mg/dL Random Glucose (75-110) mg/dL Calcium (8.6-10.4) mg/dl Phosphorus (2.5-4.5) mg/dL Magnesium (1.6-2.3) mg/dL Total Bilirubin (0.2-1.3) mg/dL AST (17-59) U/L ALT (21-72) U/L Alkaline Phosphatase (38-126) U/L C-React Prot High Sens 3.01 H (1.00-3.00) mg/L Total Protein (6.3-8.3) g/dL Albumin (3.5-5.0) g/dL Globulin (2.2-3.9) gm/dL Albumin/Globulin Ratio (1.0-2.1) Triglycerides 109 D (0-149) mg/dL Cholesterol 153 (0-199) mg/dL LDL Cholesterol Direct 83 (0-129) mg/dL HDL Cholesterol 29 L (30-70) mg/dL Homocysteine 10.2 (6.6-14.8) umol/L Free T4 0.81 (0.78-2.19) ng/dL TSH 3rd Generation 1.35 1.28 (0.46-4.68) mIU/L Vancomycin Trough (5.0-10.0) ug/mL Laboratory Results - last 24 hr 10/18/17 10/18/17 10/18/17 09:57 09:57 09:57 WBC RBC Hgb Hct MCV MCH MCHC RDW Plt Count MPV Neut % (Auto) Lymph % (Auto) [place] % (Auto) Eos % (Auto) Baso % (Auto) Neut # (Auto) Lymph # (Auto) [place] # (Auto) Eos # (Auto) Baso # (Auto) ESR 15 Sodium Potassium Chloride Carbon Dioxide Anion Gap BUN Creatinine Est GFR ( Amer) Est GFR (Non-Af Amer) POC Glucose (mg/dL) Random Glucose Calcium Phosphorus Magnesium Total Bilirubin AST ALT Alkaline Phosphatase C-React Prot High Sens 3.01 H Total Protein Albumin Globulin Albumin/Globulin Ratio Triglycerides 109 D Cholesterol 153 LDL Cholesterol Direct 83 HDL Cholesterol 29 L Homocysteine 10.2 Free T4 0.81 TSH 3rd Generation 1.28 1.35 Vancomycin Trough 10/18/17 10/18/17 10/18/17 09:57 11:23 16:28 WBC RBC Hgb Hct MCV MCH MCHC RDW Plt Count MPV Neut % (Auto) Lymph % (Auto) [place] % (Auto) Eos % (Auto) Baso % (Auto) Neut # (Auto) Lymph # (Auto) [place] # (Auto) Eos # (Auto) Baso # (Auto) ESR Sodium Potassium Chloride Carbon Dioxide Anion Gap BUN Creatinine Est GFR ( Amer) Est GFR (Non-Af Amer) POC Glucose (mg/dL) 192 H 84 Random Glucose Calcium Phosphorus Magnesium Total Bilirubin AST ALT Alkaline Phosphatase C-React Prot High Sens Total Protein Albumin Globulin Albumin/Globulin Ratio Triglycerides Cholesterol LDL Cholesterol Direct HDL Cholesterol Homocysteine Free T4 TSH 3rd Generation Vancomycin Trough 12.7 H 10/18/17 10/19/17 10/19/17 21:08 06:00 06:00 WBC 6.6 RBC 4.73 Hgb 13.3 Hct 38.6 MCV 81.6 MCH 28.2 MCHC 34.5 RDW 13.8 Plt Count 102 L MPV 9.5 Neut % (Auto) 57.0 Lymph % (Auto) 29.8 [place] % (Auto) 8.7 Eos % (Auto) 3.3 Baso % (Auto) 1.2 Neut # (Auto) 3.7 Lymph # (Auto) 2.0 [place] # (Auto) 0.6 Eos # (Auto) 0.2 Baso # (Auto) 0.1 ESR Sodium 142 Potassium 4.1 Chloride 109 H Carbon Dioxide 23 Anion Gap 14 BUN 19 Creatinine 1.0 Est GFR ( Amer) > 60 Est GFR (Non-Af Amer) > 60 POC Glucose (mg/dL) 102 Random Glucose 99 Calcium 9.4 Phosphorus 2.8 Magnesium 1.6 Total Bilirubin 0.7 AST 16 L ALT 27 Alkaline Phosphatase 49 C-React Prot High Sens Total Protein 6.6 Albumin 3.7 Globulin 2.9 Albumin/Globulin Ratio 1.3 Triglycerides Cholesterol LDL Cholesterol Direct HDL Cholesterol Homocysteine Free T4 TSH 3rd Generation Vancomycin Trough Fingerstick Blood Sugar Results: 104 Review of Systems - Review of Systems All systems: reviewed and no additional remarkable complaints except (as per HPI ) Critical Care Progress Note - Prophylaxis GI Prophylaxis GI: Pepsid - Prophylaxis DVT Prophylaxis DVT: Lovenox - Nutrition Nutrition: Nutrition Category Date Time Status NPO Diet [DIET] Diets 10/19/17 Breakfast Active Assessment/Plan - Assessment and Plan (Free Text) Assessment: This is a 67 y/o male with HTN, DM, aortic valve replacement (2 years ago) admitted to ICU with bradycardia, hypotension and hypothermia, respiratory alkalosis. Pt was treated with dopamine gtt in the ED. Dopamine gtt was discontinued on 10/17/17 0900. Pt continues to have irregular irregular heart rate , but is asymptomatic since original presentation. Pt noted to have basal ganglia lacunar infarct on head CT (10/17). No neurological symptoms at this time. Pt is in the ICU for cardiovascular and neurological monitoring. Plan: Neuro: - monitor for mental status changes - pt is aaox3 at baseline - Head CT (10/18) No evidence of acute infarct. No intracranial mass or hemorrhage. 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 - Pt continues to refuse brain MRI/MRA Cardio: - carotid dopplar does not suggest hemodynamically significant stenosis of right or left extracranial carotid arteries. - continue asa, plavix for CAD - cardiology consulted, who recommends diagnostic heart catheterization and will possibly do this procedure today - f/u results - will avoid dane stressors as per EP cardio - EP cardio discussed diagnostic and therapeutic measure with the pt, including but not limited to pacemaker implantation - maintain MAP>65 mmHg - pt is hemodynamically stable - f/u WILDER to /ro cardioembolic thrombus - lyme EIA with reflex western blot, RPR Pulm: - maintain spo2>95% - NC prn GI: - HHD - zofran prn nausea - pepcid for pud ppx ID: - no leukocytosis - no signs of infectious etiology - pt remains afebrile - BC x2 prelim shows no growth for the past 48 hours Renal: - BUN/Cr is stable - maintain euvolemia - NS at 75 mL/hr - replete electrolytes as needed - avoid nephrotoxic medications prior to heart catheterization Heme: - H/h is stable Endo: - maintain euglycemia - accucheck ACHS - ISS low ACHS PPX: protonix for pud; lovenox for vte Dispo: Continue to monitor in the ICU Case was reviewed and discussed with attending physician, Dr. Earl Vilchis <Rustam Vilchis - Last Filed: 10/19/17 17:51> CCU Objective - Vital Signs / Intake & Output Vital Signs (Last 4 hours): Vital Signs Temp Pulse Resp BP Pulse Ox 10/19/17 17:01 65 17 145/34 L 93 L 10/19/17 17:00 73 15 152/94 H 97 10/19/17 16:01 69 19 152/94 H 93 L 10/19/17 16:00 98.0 F 10/19/17 15:01 60 14 150/62 95 10/19/17 14:01 73 14 125/81 96 Intake and Output (Last 8hrs): Intake & Output 10/19/17 10/19/17 10/19/17 06:59 14:59 22:59 Intake Total 100 300 225 Output Total 300 550 Balance -200 -250 225 Weight 152 lb 6.4 oz Intake: Intake, IV Amount 300 225 Right Antecubital 300 225 Oral 100 0 0 Output: Urine 300 550 Urine, Voided 300 550 Other: # Voids Urine, Voided 1 # Bowel Movements 1 1 - Medications Active Medications: Active Medications Generic Name Dose Route Start Last Admin Trade Name Freq PRN Reason Stop Dose Admin Aspirin 81 mg 10/18/17 10:00 10/19/17 11:34 Aspirin Chewable PO 81 mg DAILY KEESHA Administration Clopidogrel Bisulfate 75 mg 10/18/17 10:00 10/19/17 11:35 Plavix PO 75 mg DAILY KEESHA Administration Dextrose 15 gm 10/17/17 11:14 Glutose 15 PO ONCE PRN Hypoglycemia Protocol Protocol Dextrose 0 ml 10/17/17 11:14 Dextrose 50% Inj IV STAT PRN Hypoglycemia Protocol Protocol Enoxaparin Sodium 30 mg 10/17/17 10:00 10/19/17 11:34 Lovenox SC 30 mg DAILY KEESHA Administration Famotidine 20 mg 10/18/17 10:00 10/19/17 17:27 Pepcid PO 20 mg BID KEESHA Administration Glucagon 1 mg 10/17/17 11:14 Glucagen Diagnostic Kit IM STAT PRN Hypoglycemia Protocol Protocol Dextrose 1,000 mls @ 0 mls/hr 10/17/17 11:14 Dextrose 5% In Water 1000 Ml IV .Q0M PRN Hypoglycemia Protocol Protocol Per Protocol Sodium Chloride 1,000 mls @ 75 mls/hr 10/19/17 09:00 10/19/17 11:35 Sodium Chloride 0.9% IV 75 mls/hr .[id number] KEESHA Administration Insulin Human Regular 0 unit 10/17/17 11:30 10/19/17 17:25 Novolin R SC Not Given ACHS KEESHA Protocol Ondansetron HCl 4 mg 10/16/17 23:00 Zofran Inj IVP Q4 PRN nausea/vomiting - Patient Studies Lab Studies: Microbiology Studies 10/17/17 01:11 Blood Culture - Preliminary Blood-Venous NO GROWTH AFTER 48 HOURS 10/17/17 01:11 Blood Culture - Preliminary Blood-Venous NO GROWTH AFTER 48 HOURS Lab Studies 10/19/17 10/19/17 10/19/17 Range/Units 15:50 11:44 07:12 WBC (4.8-10.8) K/uL RBC (4.40-5.90) Mil/uL Hgb (12.0-18.0) g/dL Hct (35.0-51.0) % MCV (80.0-94.0) fL MCH (27.0-31.0) pg MCHC (33.0-37.0) g/dL RDW (11.5-14.5) % Plt Count (130-400) K/uL MPV (7.2-11.7) fL Neut % (Auto) (50.0-75.0) % Lymph % (Auto) (20.0-40.0) % [place] % (Auto) (0.0-10.0) % Eos % (Auto) (0.0-4.0) % Baso % (Auto) (0.0-2.0) % Neut # (Auto) (1.8-7.0) K/uL Lymph # (Auto) (1.0-4.3) K/uL [place] # (Auto) (0.0-0.8) K/uL Eos # (Auto) (0.0-0.7) K/uL Baso # (Auto) (0.0-0.2) K/uL Sodium (132-148) mmol/L Potassium (3.6-5.2) mmol/L Chloride (98-107) mmol/L Carbon Dioxide (22-30) mmol/L Anion Gap (10-20) BUN (9-20) mg/dL Creatinine (0.8-1.5) mg/dL Est GFR ( Amer) Est GFR (Non-Af Amer) POC Glucose (mg/dL) 95 96 104 (65-110) mg/dL Random Glucose (75-110) mg/dL Calcium (8.6-10.4) mg/dl Phosphorus (2.5-4.5) mg/dL Magnesium (1.6-2.3) mg/dL Total Bilirubin (0.2-1.3) mg/dL AST (17-59) U/L ALT (21-72) U/L Alkaline Phosphatase (38-126) U/L Total Protein (6.3-8.3) g/dL Albumin (3.5-5.0) g/dL Globulin (2.2-3.9) gm/dL Albumin/Globulin Ratio (1.0-2.1) 10/19/17 10/19/17 10/18/17 Range/Units 06:00 06:00 21:08 WBC 6.6 (4.8-10.8) K/uL RBC 4.73 (4.40-5.90) Mil/uL Hgb 13.3 (12.0-18.0) g/dL Hct 38.6 (35.0-51.0) % MCV 81.6 (80.0-94.0) fL MCH 28.2 (27.0-31.0) pg MCHC 34.5 (33.0-37.0) g/dL RDW 13.8 (11.5-14.5) % Plt Count 102 L (130-400) K/uL MPV 9.5 (7.2-11.7) fL Neut % (Auto) 57.0 (50.0-75.0) % Lymph % (Auto) 29.8 (20.0-40.0) % [place] % (Auto) 8.7 (0.0-10.0) % Eos % (Auto) 3.3 (0.0-4.0) % Baso % (Auto) 1.2 (0.0-2.0) % Neut # (Auto) 3.7 (1.8-7.0) K/uL Lymph # (Auto) 2.0 (1.0-4.3) K/uL [place] # (Auto) 0.6 (0.0-0.8) K/uL Eos # (Auto) 0.2 (0.0-0.7) K/uL Baso # (Auto) 0.1 (0.0-0.2) K/uL Sodium 142 (132-148) mmol/L Potassium 4.1 (3.6-5.2) mmol/L Chloride 109 H (98-107) mmol/L Carbon Dioxide 23 (22-30) mmol/L Anion Gap 14 (10-20) BUN 19 (9-20) mg/dL Creatinine 1.0 (0.8-1.5) mg/dL Est GFR ( Amer) > 60 Est GFR (Non-Af Amer) > 60 POC Glucose (mg/dL) 102 (65-110) mg/dL Random Glucose 99 (75-110) mg/dL Calcium 9.4 (8.6-10.4) mg/dl Phosphorus 2.8 (2.5-4.5) mg/dL Magnesium 1.6 (1.6-2.3) mg/dL Total Bilirubin 0.7 (0.2-1.3) mg/dL AST 16 L (17-59) U/L ALT 27 (21-72) U/L Alkaline Phosphatase 49 (38-126) U/L Total Protein 6.6 (6.3-8.3) g/dL Albumin 3.7 (3.5-5.0) g/dL Globulin 2.9 (2.2-3.9) gm/dL Albumin/Globulin Ratio 1.3 (1.0-2.1) Laboratory Results - last 24 hr 10/18/17 10/19/17 10/19/17 21:08 06:00 06:00 WBC 6.6 RBC 4.73 Hgb 13.3 Hct 38.6 MCV 81.6 MCH 28.2 MCHC 34.5 RDW 13.8 Plt Count 102 L MPV 9.5 Neut % (Auto) 57.0 Lymph % (Auto) 29.8 [place] % (Auto) 8.7 Eos % (Auto) 3.3 Baso % (Auto) 1.2 Neut # (Auto) 3.7 Lymph # (Auto) 2.0 [place] # (Auto) 0.6 Eos # (Auto) 0.2 Baso # (Auto) 0.1 Sodium 142 Potassium 4.1 Chloride 109 H Carbon Dioxide 23 Anion Gap 14 BUN 19 Creatinine 1.0 Est GFR ( Amer) > 60 Est GFR (Non-Af Amer) > 60 POC Glucose (mg/dL) 102 Random Glucose 99 Calcium 9.4 Phosphorus 2.8 Magnesium 1.6 Total Bilirubin 0.7 AST 16 L ALT 27 Alkaline Phosphatase 49 Total Protein 6.6 Albumin 3.7 Globulin 2.9 Albumin/Globulin Ratio 1.3 10/19/17 10/19/17 10/19/17 07:12 11:44 15:50 WBC RBC Hgb Hct MCV MCH MCHC RDW Plt Count MPV Neut % (Auto) Lymph % (Auto) [place] % (Auto) Eos % (Auto) Baso % (Auto) Neut # (Auto) Lymph # (Auto) [place] # (Auto) Eos # (Auto) Baso # (Auto) Sodium Potassium Chloride Carbon Dioxide Anion Gap BUN Creatinine Est GFR ( Amer) Est GFR (Non-Af Amer) POC Glucose (mg/dL) 104 96 95 Random Glucose Calcium Phosphorus Magnesium Total Bilirubin AST ALT Alkaline Phosphatase Total Protein Albumin Globulin Albumin/Globulin Ratio Critical Care Progress Note - Nutrition Nutrition: Nutrition Category Date Time Status NPO Diet [DIET] Diets 10/19/17 Breakfast Active Assessment/Plan - Assessment and Plan (Free Text) Assessment: Patient seen and examined at bedside. Patient remains asymtomatic. -Brown cardia: resolved, off dopamine -continue treatment as per cardiology -long history of diabetes, will continue to monitor -will benefit from endocrinoloy eval, HBA1c pending -Patient remains hemodynamically stable. - Date & Time Date: 10/19/17 Time: 09:51
--- NOTE | 2017-10-19 10:03 | CP.PCM.PN ---
Subjective - Date & Time of Evaluation Date of Evaluation: 10/19/17 Time of Evaluation: 08:00 - Subjective Subjective: Rajiv Fernández, PGY1 Cardiology Progress Note for Dr. Peng Patient was seen and examined at bedside this morning. Vital signs stable. Patient denied chest pain, shortness of breath, abdominal pain, lightheadedness , dizziness, n/v/d. No overnight changes. Patient was explained results of EP study yesterday and verbalized consent for ischemic evaluation via cardiac cath (planned for today). ICU and nursing staff was notified of the procedure. A Full 12 point ROS was conducted and unremarkable except as stated above. Objective - Vital Signs/Intake and Output Vital Signs (last 24 hours): Temp Pulse Resp BP Pulse Ox 98.1 F 73 20 142/50 L 92 L 10/19/17 04:00 10/19/17 08:01 10/19/17 08:01 10/19/17 08:01 10/19/17 08:01 Intake and Output: 10/19/17 10/19/17 06:59 18:59 Intake Total 300 Output Total 550 Balance -250 - Medications Medications: Current Medications Aspirin (Aspirin Chewable) 81 mg PO DAILY [facility] Last Admin: 10/18/17 09:20 Dose: 81 mg Clopidogrel Bisulfate (Plavix) 75 mg PO DAILY [facility] Last Admin: 10/18/17 09:20 Dose: 75 mg Dextrose (Glutose 15) 15 gm PO ONCE PRN; Protocol PRN Reason: Hypoglycemia Protocol Dextrose (Dextrose 50% Inj) 0 ml IV STAT PRN; Protocol PRN Reason: Hypoglycemia Protocol Enoxaparin Sodium (Lovenox) 30 mg SC DAILY [facility] Last Admin: 10/18/17 09:21 Dose: 30 mg Famotidine (Pepcid) 20 mg PO BID [facility] Last Admin: 10/18/17 17:14 Dose: 20 mg Glucagon (Glucagen Diagnostic Kit) 1 mg IM STAT PRN; Protocol PRN Reason: Hypoglycemia Protocol Dextrose (Dextrose 5% In Water 1000 Ml) 1,000 mls @ 0 mls/hr IV .Q0M PRN; Protocol; Per Protocol PRN Reason: Hypoglycemia Protocol Sodium Chloride (Sodium Chloride 0.9%) 1,000 mls @ 75 mls/hr IV .[id number] [facility] Insulin Human Regular (Novolin R) 0 unit SC ACHS [facility] PRN Reason: Protocol Last Admin: 10/19/17 08:23 Dose: Not Given Ondansetron HCl (Zofran Inj) 4 mg IVP Q4 PRN PRN Reason: nausea/vomiting - Labs Labs: 10/19/17 06:00 10/19/17 06:00 PT 12.7 SECONDS (9.7-12.2) H 10/16/17 19:46 INR 1.2 10/16/17 19:46 APTT 29 SECONDS (21-34) 10/16/17 19:46 - Constitutional Appears: Well - Head Exam Head Exam: ATRAUMATIC, NORMAL INSPECTION, NORMOCEPHALIC - Eye Exam Eye Exam: EOMI, Normal appearance, PERRL - ENT Exam ENT Exam: Mucous Membranes Moist, Normal Exam - Neck Exam Neck Exam: Full ROM - Respiratory Exam Respiratory Exam: Clear to Ausculation Bilateral, NORMAL BREATHING PATTERN. absent: Accessory Muscle Use, Chest Wall Tenderness, Rales, Rhonchi, Wheezes, Respiratory Distress, Stridor - Cardiovascular Exam Cardiovascular Exam: RRR, +S1, +S2, Murmur (Systolic murmur (Aortic valve replacement)) - GI/Abdominal Exam GI & Abdominal Exam: Soft, Normal Bowel Sounds. absent: Distended, Guarding, Rigid, Tenderness, Rebound - Extremities Exam Extremities Exam: Full ROM, Normal Capillary Refill, Normal Inspection. absent : Calf Tenderness, Joint Swelling, Pedal Edema, Tenderness - Back Exam Back Exam: NORMAL INSPECTION - Neurological Exam Neurological Exam: Alert, Awake, CN II-XII Intact, Normal Gait, Oriented x3 Neuro motor strength exam: Left Upper Extremity: 5, Right Upper Extremity: 5, Left Lower Extremity: 5, Right Lower Extremity: 5 - Skin Skin Exam: Dry, Intact, Normal Color, Warm Assessment and Plan - Assessment and Plan (Free Text) Assessment: Patient is a 67 y/o M with PMHx of HTN, HLD, DM, Aortic Valve Replacement (2014) who presented to ED with acute dizziness, diaphoresis, headache, nausea, vomiting. Patient BIBA; given ASA/nitro sublingual x2 by EMS. In ED, HR was 48, given atropine without improvement. Started on dopamine gtt. Head CT, CXR, CT Chest done. Transferred to ICU for management. Cardiology consulted for symptomatic bradycardia. Neurology is also following due to basal ganglia lacunar infarct found on Head CT, r/o cardioembolic source. Patient has been asymptomatic in the unit with vital signs stable (off dopamine gtt). Patient received Echo and EP study. Patient pending ischemic evaluation via cardiac cath. Plan: Symptomatic Sinus Bradycardia - Plan for cardiac cath today for ischemic evaluation (10/19); patient verbalized consent. - EP Study: vertigo hypoglycemia vs neurological event related to bradycardia. Neurological event 2/2 vagal or visceral reflex, worsened by nitroglycerin administration or severe paroxysmal and transient failure of sinus node and junctional escape rhythm. Exclude coronary vs thyroid disease, a tilt table followed by an EP study alternatively assuming a primary conduction abnormality its not unreasonable to implant a device. Avoid dane stressors. - Current vital signs stable; normotensive with MAP > 65 and normal heart rate ( no longer on dopamine gtt) - Currently asymptomatic; denies cp, sob, palpitations, diaphoresis - ECHO (10/17): LVEF of 35.6% (new onset drop in EF). Mild concentric LVH, moderately to severely impaired systolic function, regional wall motion abnormalities, bioprosthetic aortic valve, mild to moderate valvular aortic stenosis, mild AR, mild TR, mild pulmonary htn. - History of aortic valve replacement (08/2014): it is quite possible that valve is pushing up against the AV node and may be associated with patient's reason for admission. - EKG (10/17): Rate 96 bpm. Sinus rhythm with premature supraventricular complexes. LBBB. - EKG (ED): HR 48, sinus bradycardia - Chest CT (10/16): shows no acute findings Acute onset Headache and Dizziness - Head CT (10/18): negative for acute infarct, mass, or hemorrhage (see full report). - Head CT (10/16) shows left basal ganglia lacunar infarct, chronic changes (see full report). Brain MRI suggested (patient refused due to claustrophobia). - Currently no headaches or dizziness; Neurologic exam is wnl & no focal neurological defects - Neurology is following the case, appreciated recs. - carotid doppler (10/18): f/u official read - WILDER ordered as per neuro to r/o cardioembolic source - r/o sepsis: blood cx negative x2 (prelim) and negative for MRSA; c/w antibiotic coverage HTN/HLD - Currently normotensive - c/w home meds - Maintain MAP > 65 DM - ISS - Accuchecks - Maintain euglycemia GI PPX: pepcid DVT ppx: lovenox Dispo: Patient is pending cardiac cath today. Case was discussed and reviewed with [place] Dr. Peng. Please see further recommendations as per Dr. Peng.
--- NOTE | 2017-10-19 10:38 | VASCLAB ---
Date of service: 10/18/2017 PROCEDURE: HISTORY: Dizziness COMPARISON: None available. TECHNIQUE: Grayscale and duplex Doppler evaluation of the cervical carotid and vertebral arteries were performed. The common carotid, carotid bifurcations and cervical Internal Carotid Artery (ICA) and proximal External Carotid Artery (ECA) were evaluated. The vertebral arteries were evaluated for gross patency and flow direction. Report prepared by JENNIFER Savage FINDINGS: RIGHT CAROTID ARTERIES: 1. Common Carotid Artery: No significant focal plaque formation of the right common carotid artery. Maximum Peak Systolic velocity: 108 cm/sec: End-diastolic velocity 21 cm/sec. 2. Carotid Bifurcation: plaque formation. Maximum Peak Systolic velocity: 49 cm/sec: End-diastolic velocity 17 cm/sec. 3. Internal Carotid Artery: Plaque description: 3.1. Proximal Segment: Peak systolic velocity 82 cm/sec: End-diastolic velocity 17 cm/sec - % stenosis 0-15% 3.2. Middle Segment: Peak systolic velocity 88 cm/sec: End-diastolic velocity 28 cm/sec - % stenosis 0-15% 3.3. Distal Segment: Peak systolic velocity 67 cm/sec: End-diastolic velocity 27 cm/sec - % stenosis 0-15% 4. External Carotid Artery: No significant focal plaque formation. Peak systolic velocity 117 cm/sec 5. ICA/CCA Ratio: 1.0 LEFT CAROTID ARTERIES: 1. Common Carotid Artery: No significant focal plaque formation of the left common carotid artery. Maximum Peak Systolic velocity: 104 cm/sec: End-diastolic velocity 22 cm/sec. 2. Carotid Bifurcation: plaque formation. Maximum Peak Systolic velocity: 70 cm/sec: End-diastolic velocity 12 cm/sec. 3. Internal Carotid Artery: Plaque description: 3.1. Proximal Segment: Peak systolic velocity 80 cm/sec: End-diastolic velocity 19 cm/sec - % stenosis 0-15% 3.2. Middle Segment: Peak systolic velocity 66 cm/sec: End-diastolic velocity 32 cm/sec - % stenosis 0-15% 3.3. Distal Segment: Peak systolic velocity 101 cm/sec: End-diastolic velocity 43 cm/sec - % stenosis 0-15% 4. External Carotid Artery: No significant focal plaque formation. Peak systolic velocity 112 cm/sec 5. ICA/CCA Ratio: 1.3 VERTEBRAL ARTERIES: 1. Right Vertebral Artery: The right vertebral artery flow direction is antegrade. 2. Left Vertebral Artery: The left vertebral artery flow direction is antegrade. OTHER FINDINGS: IMPRESSION: RIGHT: Duplex scan does not suggest hemodynamically significant stenosis of the right extracranial carotid arteries. LEFT: Duplex scan does not suggest hemodynamically significant stenosis of the left extracranial carotid arteries.
[2017-10-19] MEDS: Enoxaparin 30 mg Syringe SC SCH (11:34)
--- NOTE | 2017-10-19 12:32 | PN ---
Copied To: Cristobal Manning MD Attending MD: Cristobal Manning MD DATE: 10/19/2017 NEUROLOGICAL PROBLEM: Radiological evidence of multiple stroke with BLINTZE ROLLER territory and vertebrobasilar insufficiency. PHYSICAL EXAMINATION: VITAL SIGNS: Blood pressure 148/65, mean arterial pressure of 92, respiratory rate of 9, temperature afebrile with pulse rate is 79, irregular. GENERAL: The patient is awake, alert, oriented to person, place, and time. Speech is clear. EXTREMITIES: Moving all four extremities. No focal strength or deficits. Deep tendon reflexes are trace. Plantars are mute. Rest of his examination which is unchanged to compare with the previous examination. The patient did have echocardiogram and carotid Doppler. Carotid Doppler does not show any significant stenosis. His blood workup, nothing is significant from yesterday's workup. Repeated CT of the head does not show any acute changes to compare with previous exam, however, consistent periventricular ischemic changes, abutting both anterior and posterior cerebral artery distribution which is unexplained. RECOMMENDATION: The patient definitely needs transesophageal echocardiogram to find out the source for his cortical and subcortical ischemic process, no intracardiac arrhythmias. In the meantime, continue aspirin and Plavix for GI prophylaxis in addition to angiotensin-receptor blockers and proper statin coverage. Cristobal Manning MD
--- NOTE | 2017-10-19 14:08 | CP.PCM.PN ---
Subjective - Date & Time of Evaluation Date of Evaluation: 10/19/17 Time of Evaluation: 14:00 - Subjective Subjective: Patient is pending cardiac cath later this afternoon. Currently he reports feeling well. He denied chest pain, denied shortness of breath, denied palpitations. He remains off of the dopamine and did not have any events overnight. The HR and BP were stable. His second CT scan of the head yesterday afternoon was stable. Objective - Vital Signs/Intake and Output Vital Signs (last 24 hours): Temp Pulse Resp BP Pulse Ox 98.1 F 73 20 142/50 L 92 L 10/19/17 04:00 10/19/17 08:01 10/19/17 08:01 10/19/17 08:01 10/19/17 08:01 Intake and Output: 10/19/17 10/19/17 06:59 18:59 Intake Total 300 225 Output Total 550 250 Balance -250 -25 - Medications Medications: Current Medications Aspirin (Aspirin Chewable) 81 mg PO DAILY [facility] Last Admin: 10/19/17 11:34 Dose: 81 mg Clopidogrel Bisulfate (Plavix) 75 mg PO DAILY [facility] Last Admin: 10/19/17 11:35 Dose: 75 mg Dextrose (Glutose 15) 15 gm PO ONCE PRN; Protocol PRN Reason: Hypoglycemia Protocol Dextrose (Dextrose 50% Inj) 0 ml IV STAT PRN; Protocol PRN Reason: Hypoglycemia Protocol Enoxaparin Sodium (Lovenox) 30 mg SC DAILY [facility] Last Admin: 10/19/17 11:34 Dose: 30 mg Famotidine (Pepcid) 20 mg PO BID [facility] Last Admin: 10/19/17 11:36 Dose: 20 mg Glucagon (Glucagen Diagnostic Kit) 1 mg IM STAT PRN; Protocol PRN Reason: Hypoglycemia Protocol Dextrose (Dextrose 5% In Water 1000 Ml) 1,000 mls @ 0 mls/hr IV .Q0M PRN; Protocol; Per Protocol PRN Reason: Hypoglycemia Protocol Sodium Chloride (Sodium Chloride 0.9%) 1,000 mls @ 75 mls/hr IV .[id number] [facility] Last Admin: 10/19/17 11:35 Dose: 75 mls/hr Insulin Human Regular (Novolin R) 0 unit SC ACHS [facility] PRN Reason: Protocol Last Admin: 10/19/17 11:48 Dose: Not Given Ondansetron HCl (Zofran Inj) 4 mg IVP Q4 PRN PRN Reason: nausea/vomiting - Labs Labs: 10/19/17 06:00 10/19/17 06:00 PT 12.7 SECONDS (9.7-12.2) H 10/16/17 19:46 INR 1.2 10/16/17 19:46 APTT 29 SECONDS (21-34) 10/16/17 19:46 - Constitutional Appears: Non-toxic, No Acute Distress - Head Exam Head Exam: NORMAL INSPECTION, NORMOCEPHALIC - Eye Exam Eye Exam: EOMI, Normal appearance - ENT Exam ENT Exam: Mucous Membranes Moist - Cardiovascular Exam Cardiovascular Exam: REGULAR RHYTHM - GI/Abdominal Exam GI & Abdominal Exam: Soft, Normal Bowel Sounds - Neurological Exam Neurological Exam: Alert, Awake, Oriented x3 Neuro motor strength exam: Left Upper Extremity: 5, Right Upper Extremity: 5, Left Lower Extremity: 5, Right Lower Extremity: 5 - Psychiatric Exam Psychiatric exam: Normal Affect, Normal Mood - Skin Skin Exam: Normal Color, Warm Attending/Attestation - Attestation I have personally seen and examined this patient.: Yes I have fully participated in the care of the patient.: Yes I have reviewed all pertinent clinical information, including history, physical exam and plan: Yes Notes (Text): 10/19/17 14:09 Assessment & Plan (1) Bradycardia 10/19: Pending cardiac catherization later today. The echo from 10/17 reporting EF of 35%, moderate LVH, and impared systolic function, mild PHTN. History of bioprosthetic valve. 10/18: Doing better, now off of IV dopamine and pending EP cardiology review the case 10/17 Currently on IV dopamine, will need to have transcutanous pacer pads on as a precaution in case something should happen tonight. HR on telemetry is currently on 80s and appears NSR, however there is one 12 EKG that looks like heart block. Will need EP cardiology evaluation. Avoid BB. (2) Hypotension 10/18 Off of IV dopamine Currently systolic now in the 120s Plasma Cortisol: 30.4 ( WNL) TSH and Free T4: 1.42 and 1.06, respectively (3) Headache - basal ganglia lacunar infacrt 10/19: The second head CT was stable. The first one reported lacunar basal infaction. His neurological examns have been stable. No reported weakness Patient refused the MRI. Continue to monitor. (4) Nausea & vomiting Zofran 4mg IV Q6H PRN Protonix 40mg IV daily (5) Diabetes mellitus Accuckes ISS- Low dose (6) Prophylactic measure GI: Protonix 40mg IV daily DVT: Lovenox 30mg SC daily
[2017-10-19] MEDS ORDERED: Verapamil 2 ML ONE (18:48)
[2017-10-19] MEDS ORDERED: Lidocaine 2% MPF (5 ml) Inj ONE (18:48)
[2017-10-19] MEDS ORDERED: Iodixanol 320 MG/ML 100 ML BOTTLE IV ONE (18:49)
[2017-10-19] MEDS ORDERED: Iodixanol 320 MG/ML 200 ML BOTTLE IV ONE (18:49)
[2017-10-19] MEDS ORDERED: Nitroglycerin 50mg in D5W 50 MG/250 ML BOTTLE IV ONE (18:49)
[2017-10-19] MEDS ORDERED: Midazolam 2 MG/2 ML VIAL ONE (18:50)
[2017-10-19 20:38] LABS: VENOUS BLOOD GAS BASE EXCESS -3.5 mmol/L (0.0-2.0); VENOUS BLOOD GAS PCO2 41 mmHg (40-60); VENOUS BLOOD GAS PO2 38 mm/Hg (30-55); VENOUS BLOOD PH 7.34 (7.32-7.43)
[2017-10-19 20:42] LABS: ARTERIAL BLOOD GAS HCO3 21.4 mmol/L (21-28); ARTERIAL BLOOD GAS HEMOGLOBIN 12.8 g/dL (11.7-17.4); ARTERIAL BLOOD GAS O2 SAT 73.6 % (95-98); ARTERIAL BLOOD GAS PCO2 42 mm/Hg (35-45); ARTERIAL BLOOD GAS PH 7.33 (7.35-7.45); ARTERIAL BLOOD GAS PO2 39 mm/Hg (80-100); ARTERIAL BLOOD GAS TCO2 23.4 mmol/L (22-28)
[2017-10-19] MEDS: Sodium Chloride 0.9% 1,000 ML IV SCH (22:00)
[2017-10-20 06:34] LABS: BASO % 0.6 % (0.0-2.0); EOS # 0.2 K/uL (0.0-0.7); EOS % 2.2 % (0.0-4.0); HEMOGLOBIN 13.8 g/dL (12.0-18.0); LYMPH # 1.8 K/uL (1.0-4.3); LYMPH % 24.6 % (20.0-40.0); MEAN CELL VOLUME 80.3 fL (80.0-94.0); MEAN CORPUSCULAR HEMOGLOBIN 27.9 pg (27.0-31.0); MEAN CORPUSCULAR HGB CONC 34.7 g/dL (33.0-37.0); MEAN PLATELET VOLUME 8.7 fL (7.2-11.7); MONO # 0.6 K/uL (0.0-0.8); MONO % 8.6 % (0.0-10.0); NEUT # 4.6 K/uL (1.8-7.0); RBC 4.96 Mil/uL (4.40-5.90); RED CELL DISTRIBUTION WIDTH 13.8 % (11.5-14.5); WHITE BLOOD COUNT 7.2 K/uL (4.8-10.8)
[2017-10-20 06:45] LABS: INR 1.2; PROTHROMBIN TIME 12.6 SECONDS (9.7-12.2)
[2017-10-20 06:46] LABS: ALB/GLOB RATIO 1.4 (1.0-2.1); ALBUMIN 3.8 g/dL (3.5-5.0); ALT/SGPT 28 U/L (21-72); AST/SGOT 17 U/L (17-59); BLOOD UREA NITROGEN 16 mg/dL (9-20); CALCIUM 9.6 mg/dl (8.6-10.4); GFR AFRICAN-AMERICAN > 60; GFR NON-AFRICAN AMERICAN > 60
[2017-10-20] MEDS: (Novolin R) Insulin Human Regular 100 units/ml vial SC SCH ×4 (08:20→22:50)
--- NOTE | 2017-10-20 08:34 | CARDCATH ---
Copied To: Ayaz Peng MD Attending MD: Ayaz Peng MD PROCEDURE DATE: 10/19/2017 INDICATIONS: Mr. Oglesby is a 67-year-old male who presented to [facility] (Formerly [facility]) with symptoms of nausea, diaphoresis, and dizziness. On initial presentation, he was bradycardic and complete heart block, required dopamine infusion and responded well to it. The patient underwent echocardiogram, which showed new-onset CHF with drop in ejection fraction to 35%. He was therefore brought to the labeler for further evaluation and treatment. PROCEDURE PERFORMED: Complete heart catheterization with selective left and right coronary angiogram. Right heart cath with hemodynamics and saturations via right radial artery and right brachial vein approach. TECHNIQUES OF PROCEDURE: After obtaining the informed consent, the patient was brought to the cardiac cath suite in post-absorptive and nonsedated state. The patient was prepped and draped in the usual sterile fashion. Lidocaine 2% was used for infiltration of anesthesia. Using modified Seldinger technique, a 6-Tajik sheath was introduced into the right radial artery, and a 7-Tajik sheath was introduced into the right brachial vein. Subsequently under fluoroscopic guidance with the balloon inflated was advanced serially through the subclavian vein to the SVC, RA, RVPA, and wedge position. Hemodynamics and saturations were obtained. Using the thermodilution method, cardiac output was calculated to be 5 L per minute. Cardiac index of 2.9 L per minute per sq m area. Hemodynamics and saturations are 10/20/12, RV 41/7, RV end-diastolic of 13. Pulmonary capillary wedge pressure 17 mmHg. PA 30/80/mean of 27. RA saturation 73.6. PA saturation 74.8. CORONARY ANATOMY: The left main is a large-sized vessel, bifurcates into LAD and left coronary artery. Left circumflex is a large-sized vessel, runs in the AV groove and gives off a two small obtuse marginal branches. The LAD is a large-sized vessel, first septal tooling engineer has proximal diffuse 70% stenosis. Diagonal 1 is a large-sized vessel, runs of ostial 65% stenosis. Distal LAD has 40% stenosis. 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 IMPRESSION: Moderate two-vessel coronary artery disease. The patient's etiology for complete heart block is nonischemic, question underlying conduction pathway disease. RECOMMENDATIONS: The patient is to be evaluated by Electrophysiology for possible permanent pace maker. Ayaz Peng MD
[2017-10-20] MEDS: Enoxaparin 30 mg Syringe SC SCH (09:47)
--- NOTE | 2017-10-20 11:21 | CP.PCM.PN ---
Subjective - Date & Time of Evaluation Date of Evaluation: 10/20/17 Time of Evaluation: 11:17 - Subjective Subjective: no cp no sob no palpitations feeling well Objective - Vital Signs/Intake and Output Vital Signs (last 24 hours): Temp Pulse Resp BP Pulse Ox 98.4 F 78 13 119/65 97 10/20/17 08:00 10/20/17 11:01 10/20/17 11:01 10/20/17 11:01 10/20/17 11:01 Intake and Output: 10/20/17 10/20/17 06:59 18:59 Intake Total 750 690 Output Total 1300 300 Balance -550 390 - Medications Medications: Current Medications Aspirin (Aspirin Chewable) 81 mg PO DAILY [facility] Last Admin: 10/20/17 09:47 Dose: 81 mg Clopidogrel Bisulfate (Plavix) 75 mg PO DAILY [facility] Last Admin: 10/20/17 09:47 Dose: 75 mg Dextrose (Glutose 15) 15 gm PO ONCE PRN; Protocol PRN Reason: Hypoglycemia Protocol Dextrose (Dextrose 50% Inj) 0 ml IV STAT PRN; Protocol PRN Reason: Hypoglycemia Protocol Enoxaparin Sodium (Lovenox) 30 mg SC DAILY [facility] Last Admin: 10/20/17 09:47 Dose: 30 mg Famotidine (Pepcid) 20 mg PO BID [facility] Last Admin: 10/20/17 09:48 Dose: 20 mg Glucagon (Glucagen Diagnostic Kit) 1 mg IM STAT PRN; Protocol PRN Reason: Hypoglycemia Protocol Dextrose (Dextrose 5% In Water 1000 Ml) 1,000 mls @ 0 mls/hr IV .Q0M PRN; Protocol; Per Protocol PRN Reason: Hypoglycemia Protocol Sodium Chloride (Sodium Chloride 0.9%) 1,000 mls @ 75 mls/hr IV .[id number] [facility] Last Admin: 10/19/17 22:00 Dose: 75 mls/hr Insulin Human Regular (Novolin R) 0 unit SC ACHS [facility] PRN Reason: Protocol Last Admin: 10/20/17 08:20 Dose: Not Given Ondansetron HCl (Zofran Inj) 4 mg IVP Q4 PRN PRN Reason: nausea/vomiting - Labs Labs: 10/20/17 06:31 10/20/17 06:31 PT 12.6 SECONDS (9.7-12.2) H 10/20/17 06:31 INR 1.2 10/20/17 06:31 APTT 37 SECONDS (21-34) H 10/20/17 06:31 - Constitutional Appears: Well, No Acute Distress - Head Exam Head Exam: ATRAUMATIC - Eye Exam Eye Exam: Normal appearance - ENT Exam ENT Exam: Mucous Membranes Moist - Respiratory Exam Respiratory Exam: Clear to Ausculation Bilateral, NORMAL BREATHING PATTERN. absent: Rales, Rhonchi, Wheezes - Cardiovascular Exam Cardiovascular Exam: Bradycardia, +S1, +S2. absent: Murmur - GI/Abdominal Exam GI & Abdominal Exam: Soft, Normal Bowel Sounds. absent: Tenderness, Organomegaly - Neurological Exam Neurological Exam: Alert, Awake, Oriented x3 Assessment and Plan - Assessment and Plan (Free Text) Assessment: This is a 67 y/o male with HTN, DM, aortic valve replacement (2 years ago) admitted to ICU with bradycardia, hypotension and hypothermia, respiratory alkalosis. Pt is in the ICU for cardiovascular and neurological monitoring. 1. Bradycardia 2 Complete heart block 3. Hypotension 4. Hypothermia 5. Respiratory Alkalosis 6. Fungal sinusiits? 7. ?Acute Left basal ganglia lacunar infarct Plan: Neuro: - monitor for mental status changes - pt is aaox3 at baseline - Head CT (10/16) shows left basal ganglia lacunar infarct, chronic changes (see full report). - continue asa, plavix as per neuro - neurology evaluated the pt and recommends brain MRI/MRA, but pt is refusing due to claustrophobia. Pt refuses to be medicated prior to procedure. - carotid dopplar, repeat head ct, fely as per neuro; will f/u results Cardio: - S/p cath no ischemia as cause of Complete heart block - Plan PPM? - Chest CT (10/16) shows no acute findings (see report) - echocardiogram (10/17) shows LVEF of 35.6%, mild concentric LVH, moderately to severely impaired systolic function, regional wall motion abnormalities, bioprosthetic aortic valve, mild to moderate valvular aortic stenosis, mild AR, mild TR, mild pulmonary htn. - cardiology consulted, recs appreciated - EP eval pending, res appreciated - maintain MAP>65 mmHg - EKG shows sinus bradycardia with PVCs - pt is hemodynamically stable Pulm: - maintain spo2>95% - NC prn - CXR (10/16) shows cardiomegaly without pulmonary vascular congestion. No acute pulmonary disease. GI: - HHD - zofran prn nausea - pepcid for pud ppx ID: - leukocytosis has resolved - no signs of infectious etiology - pt remains afebrile - BC x2 prelim shows no growth for the past 24 hours - discontinue antibiotics - consider eval by ENT after stabilization for possible fungal sinusitis Renal: - BUN/Cr is stable - maintain euvolemia - replete electrolytes as needed Heme: - H/h is stable Endo: - maintain euglycemia - accucheck ACHS - ISS low ACHS PPX: protonix for pud; lovenox for vte Dispo: Continue to monitor in the ICU
--- NOTE | 2017-10-20 12:04 | CP.PCM.PN ---
Subjective - Date & Time of Evaluation Date of Evaluation: 10/20/17 Time of Evaluation: 12:03 - Subjective Subjective: PAtient has no specific complaits Objective - Vital Signs/Intake and Output Vital Signs (last 24 hours): Temp Pulse Resp BP Pulse Ox 98.4 F 78 13 119/65 97 10/20/17 08:00 10/20/17 11:01 10/20/17 11:01 10/20/17 11:01 10/20/17 11:01 Intake and Output: 10/20/17 10/20/17 06:59 18:59 Intake Total 750 690 Output Total 1300 300 Balance -550 390 - Medications Medications: Current Medications Aspirin (Aspirin Chewable) 81 mg PO DAILY [facility] Last Admin: 10/20/17 09:47 Dose: 81 mg Clopidogrel Bisulfate (Plavix) 75 mg PO DAILY [facility] Last Admin: 10/20/17 09:47 Dose: 75 mg Dextrose (Glutose 15) 15 gm PO ONCE PRN; Protocol PRN Reason: Hypoglycemia Protocol Dextrose (Dextrose 50% Inj) 0 ml IV STAT PRN; Protocol PRN Reason: Hypoglycemia Protocol Enoxaparin Sodium (Lovenox) 30 mg SC DAILY [facility] Last Admin: 10/20/17 09:47 Dose: 30 mg Famotidine (Pepcid) 20 mg PO BID [facility] Last Admin: 10/20/17 09:48 Dose: 20 mg Glucagon (Glucagen Diagnostic Kit) 1 mg IM STAT PRN; Protocol PRN Reason: Hypoglycemia Protocol Dextrose (Dextrose 5% In Water 1000 Ml) 1,000 mls @ 0 mls/hr IV .Q0M PRN; Protocol; Per Protocol PRN Reason: Hypoglycemia Protocol Sodium Chloride (Sodium Chloride 0.9%) 1,000 mls @ 75 mls/hr IV .[id number] [facility] Last Admin: 10/19/17 22:00 Dose: 75 mls/hr Insulin Human Regular (Novolin R) 0 unit SC ACHS [facility] PRN Reason: Protocol Last Admin: 10/20/17 08:20 Dose: Not Given Ondansetron HCl (Zofran Inj) 4 mg IVP Q4 PRN PRN Reason: nausea/vomiting - Labs Labs: 10/20/17 06:31 10/20/17 06:31 PT 12.6 SECONDS (9.7-12.2) H 10/20/17 06:31 INR 1.2 10/20/17 06:31 APTT 37 SECONDS (21-34) H 10/20/17 06:31 - Head Exam Head Exam: ATRAUMATIC, NORMAL INSPECTION, NORMOCEPHALIC - Respiratory Exam Respiratory Exam: Clear to Ausculation Bilateral, NORMAL BREATHING PATTERN - Cardiovascular Exam Cardiovascular Exam: +S1, +S2 - GI/Abdominal Exam GI & Abdominal Exam: Normal Bowel Sounds - Extremities Exam Extremities Exam: Full ROM, Normal Inspection - Neurological Exam Neurological Exam: Alert, Awake, CN II-XII Intact, Oriented x3 Assessment and Plan - Assessment and Plan (Free Text) Assessment: 67 y/o male with HTN, DM, aortic valve replacement (2 years ago) admitted to ICU with bradycardia, hypotension and hypothermia, respiratory alkalosis. AMS-Confusion reoslved Bradycardia: off dopamine, continue treatment as per cardiology, resolved -Chronic systolic heart failure (EF 35%: obtain cardiology input, continue rx as per cardiology, including acei, (hold av dane george 2nd episodic bradycardia), asa/palvix and statin, obtain EPS eval for ACID/PPM -BS controlled -Patient remains hemodynamically stable. -PAtient will benefit from tele monitoring
[2017-10-20] MEDS: Sodium Chloride 0.9% 1,000 ML IV SCH (13:18)
[2017-10-21 06:46] LABS: INR 1.2; PROTHROMBIN TIME 12.7 SECONDS (9.7-12.2)
[2017-10-21 06:47] LABS: BASO % 0.7 % (0.0-2.0); EOS # 0.2 K/uL (0.0-0.7); EOS % 2.8 % (0.0-4.0); HEMOGLOBIN 13.6 g/dL (12.0-18.0); LYMPH # 1.5 K/uL (1.0-4.3); LYMPH % 26.4 % (20.0-40.0); MEAN CELL VOLUME 81.4 fL (80.0-94.0); MEAN CORPUSCULAR HGB CONC 34.4 g/dL (33.0-37.0); MEAN PLATELET VOLUME 9.3 fL (7.2-11.7); MONO # 0.6 K/uL (0.0-0.8); MONO % 10.3 % (0.0-10.0); NEUT # 3.4 K/uL (1.8-7.0); NEUT % 59.8 % (50.0-75.0); NRBC % 0.1 % (0.0-2.0); RBC 4.88 Mil/uL (4.40-5.90); RED CELL DISTRIBUTION WIDTH 13.7 % (11.5-14.5); WHITE BLOOD COUNT 5.7 K/uL (4.8-10.8)
[2017-10-21 06:57] LABS: ALB/GLOB RATIO 1.4 (1.0-2.1); ALBUMIN 3.8 g/dL (3.5-5.0); ALT/SGPT 27 U/L (21-72); AST/SGOT 23 U/L (17-59); BLOOD UREA NITROGEN 19 mg/dL (9-20); CALCIUM 9.5 mg/dl (8.6-10.4); GFR AFRICAN-AMERICAN > 60; GFR NON-AFRICAN AMERICAN > 60
[2017-10-21] MEDS: (Novolin R) Insulin Human Regular 100 units/ml vial SC SCH ×4 (08:30→21:18)
[2017-10-21] MEDS: Enoxaparin 30 mg Syringe SC SCH (09:30)
--- NOTE | 2017-10-21 16:01 | CP.PCM.PN ---
Subjective - Date & Time of Evaluation Date of Evaluation: 10/21/17 Time of Evaluation: 15:59 - Subjective Subjective: PGY-1 Medicine Progress Note for Dr. ulloa's service Patient seen and examined at bedside. Patient offers no acute complaints. Patient denies chest pain, sob, n/v, palpitations, constipation, diarrhea, dysuria. Objective - Vital Signs/Intake and Output Vital Signs (last 24 hours): Temp Pulse Resp BP Pulse Ox 98.1 F 73 14 135/81 98 10/21/17 12:00 10/21/17 13:00 10/21/17 13:00 10/21/17 12:00 10/21/17 13:00 Intake and Output: 10/21/17 10/21/17 06:59 18:59 Intake Total 150 370 Output Total 1100 700 Balance -950 -330 - Medications Medications: Current Medications Aspirin (Aspirin Chewable) 81 mg PO DAILY [facility] Last Admin: 10/21/17 09:29 Dose: 81 mg Clopidogrel Bisulfate (Plavix) 75 mg PO DAILY [facility] Last Admin: 10/21/17 09:29 Dose: 75 mg Dextrose (Glutose 15) 15 gm PO ONCE PRN; Protocol PRN Reason: Hypoglycemia Protocol Dextrose (Dextrose 50% Inj) 0 ml IV STAT PRN; Protocol PRN Reason: Hypoglycemia Protocol Enoxaparin Sodium (Lovenox) 30 mg SC DAILY [facility] Last Admin: 10/21/17 09:30 Dose: 30 mg Famotidine (Pepcid) 20 mg PO BID [facility] Last Admin: 10/21/17 09:30 Dose: 20 mg Glucagon (Glucagen Diagnostic Kit) 1 mg IM STAT PRN; Protocol PRN Reason: Hypoglycemia Protocol Insulin Human Regular (Novolin R) 0 unit SC [facility] PRN Reason: Protocol Last Admin: 10/21/17 08:30 Dose: Not Given Lisinopril (Zestril) 2.5 mg PO DAILY [facility] Last Admin: 10/21/17 09:30 Dose: 2.5 mg Ondansetron HCl (Zofran Inj) 4 mg IVP Q4 PRN PRN Reason: nausea/vomiting - Labs Labs: 10/21/17 06:26 10/21/17 06:26 PT 12.7 SECONDS (9.7-12.2) H 10/21/17 06:00 INR 1.2 10/21/17 06:00 APTT 36 SECONDS (21-34) H 10/21/17 06:00 - Constitutional Appears: Non-toxic, No Acute Distress - Eye Exam Eye Exam: EOMI, Normal appearance. absent: Nystagmus, Scleral icterus - Respiratory Exam Respiratory Exam: Clear to Ausculation Bilateral, NORMAL BREATHING PATTERN. absent: Rales, Rhonchi, Wheezes - Cardiovascular Exam Cardiovascular Exam: Bradycardia, +S2. absent: Murmur - GI/Abdominal Exam GI & Abdominal Exam: Soft, Normal Bowel Sounds. absent: Distended, Firm, Guarding (b), Tenderness - Extremities Exam Extremities Exam: Normal Inspection. absent: Calf Tenderness, Pedal Edema - Back Exam Back Exam: NORMAL INSPECTION. absent: CVA tenderness (L), CVA tenderness (R) - Neurological Exam Neurological Exam: Alert, Awake, Oriented x3 - Psychiatric Exam Psychiatric exam: Normal Affect, Normal Mood - Skin Skin Exam: Intact, Normal Color Assessment and Plan - Assessment and Plan (Free Text) Assessment: Patient is a 67 y/o M with PMHx of HTN, HLD, DM, Aortic Valve Replacement (2014) who presented to ED with acute dizziness, diaphoresis, headache, nausea, vomiting. Patient BIBA; given ASA/nitro sublingual x2 by EMS. In ED, HR was 48, given atropine without improvement. Started on dopamine gtt. Head CT, CXR, CT Chest done. Transferred to ICU for management. Cardiology consulted for symptomatic bradycardia. Neurology is also following due to basal ganglia lacunar infarct found on Head CT, r/o cardioembolic source. Patient has been asymptomatic in the unit with vital signs stable (off dopamine gtt). Patient received Echo and EP study. Patient pending ischemic evaluation via cardiac cath. Plan: Symptomatic Bradycardia 10/[address]: no acute findings EKG (ED): HR 48, sinus bradycardia 10/17 EKG: Rate 96 bpm, sinus rhhythm with premature supraventricular complexes. LBBB. s/p Aortic Valve replacement in 08/2014 Echo: VEF of 35.6% (new onset drop in EF). Mild concentric LVH, moderately to severely impaired systolic function, regional wall motion abnormalities, bioprosthetic aortic valve, mild to moderate valvular aortic stenosis, mild AR, mild TR, mild pulmonary htn EP Study: vertigo hypoglycemia vs neurological event related to bradycardia. Neurological event 2/2 vagal or visceral reflex, worsened by nitroglycerin administration or severe paroxysmal and transient failure of sinus node and junctional escape rhythm. Exclude coronary vs thyroid disease, a tilt table followed by an EP study alternatively assuming a primary conduction abnormality its not unreasonable to implant a device. Avoid dane stressors. Most recent EKG shows complete heart block; plan for pacemaker as per Dr. Peng Lacunar Infarct Head CT (10/16) shows left basal ganglia lacunar infarct, chronic changes. Brain MRI suggested Aspirin 81 mg po daily Plavix 75 mg po daily DM2 ISS; Hypoglycemic protocol Accuchecks ACHS Hypertension 135/81 Lisinopril 2.5mg po daily PPX DVT ppx: Lovenox 30 mg sc daily GI ppx: Pepcid 20 mg po bid
--- NOTE | 2017-10-21 23:19 | CP.PCM.PN ---
Subjective - Date & Time of Evaluation Date of Evaluation: 10/21/17 Time of Evaluation: 22:30 - Subjective Subjective: EP Progress note Chart imaging reviewed As reiterated earlier Mr. Oglesby presented with sudden onset of dizziness diaphoresis nausea vomiting headache and was noted to be hypotensive and bradycardia; the latters temporal relation to the administration of nitroglycerine is unclear; subsequently was noted to be in severe sinus bradycardia junctional escape rhythm and interval development of a complete LBBB. This on a background of systemic hypertension and a bioprosthetic aortic valve replacement and preserved LV systolic function and presumed normal coronary arteries Its difficult to unify the findings in a clinical syndrome and the effort is confounded by the administration of nitroglycerine There is circumstantial evidence of a primary hemodynamic event (cf. Vertigo hypoglycemia or a neurological event) related to the bradycardia. The latter could be due to a vagal reflex initiated by prolonged standing at work (albiet not unusual for his work) or a visceeral reflex initiated by nausea vomiting (? causal factor) worsened by nitroglycerine or severe paroxysmal and transient failure of the sinus node and a junctional escape rhythm; the short runs of wide complex tachycardia with AV dissociation suggests an accelerated idioventricular rhythm likely benign given normal LV systolic function Coronary and thyroid disease were exlcuded Outstanding issues include the etiogenesis of the presenting index symptoms, the nature origin and significance of the bradyarrhythmia and the subsequent tachyarrhythmia and maggy duration and permanence of LV dysfunction and the need for a device and if necessary the device type (pacemaker versus single ICD versus BIVICD versus a life vest) An EP study would help resolve some of these issues Plan MUGA scan for accurate EF EP study Objective - Vital Signs/Intake and Output Vital Signs (last 24 hours): Temp Pulse Resp BP Pulse Ox 98.4 F 70 22 144/88 100 10/21/17 16:00 10/21/17 18:00 10/21/17 17:00 10/21/17 16:00 10/21/17 17:00 Intake and Output: 10/21/17 10/22/17 18:59 06:59 Intake Total 610 0 Output Total 700 650 Balance -90 -650 - Medications Medications: Current Medications Aspirin (Aspirin Chewable) 81 mg PO DAILY [facility] Last Admin: 10/21/17 09:29 Dose: 81 mg Clopidogrel Bisulfate (Plavix) 75 mg PO DAILY [facility] Last Admin: 10/21/17 09:29 Dose: 75 mg Dextrose (Glutose 15) 15 gm PO ONCE PRN; Protocol PRN Reason: Hypoglycemia Protocol Dextrose (Dextrose 50% Inj) 0 ml IV STAT PRN; Protocol PRN Reason: Hypoglycemia Protocol Enoxaparin Sodium (Lovenox) 30 mg SC DAILY [facility] Last Admin: 10/21/17 09:30 Dose: 30 mg Famotidine (Pepcid) 20 mg PO BID [facility] Last Admin: 10/21/17 18:09 Dose: 20 mg Glucagon (Glucagen Diagnostic Kit) 1 mg IM STAT PRN; Protocol PRN Reason: Hypoglycemia Protocol Insulin Human Regular (Novolin R) 0 unit SC ACHS [facility] PRN Reason: Protocol Last Admin: 10/21/17 21:18 Dose: Not Given Lisinopril (Zestril) 2.5 mg PO DAILY [facility] Last Admin: 10/21/17 09:30 Dose: 2.5 mg Ondansetron HCl (Zofran Inj) 4 mg IVP Q4 PRN PRN Reason: nausea/vomiting - Labs Labs: 10/21/17 06:26 10/21/17 06:26 PT 12.7 SECONDS (9.7-12.2) H 10/21/17 06:00 INR 1.2 10/21/17 06:00 APTT 36 SECONDS (21-34) H 10/21/17 06:00
--- NOTE | 2017-10-22 00:26 | CARD ---
APPROVED REPORT Date of service: 10/17/2017 EKG Measurement Heart [id number] <Conclusion> Sinus bradycardia with marked sinus arrhythmia Left bundle branch block Abnormal ECG
[2017-10-22 06:33] LABS: BASO % 0.7 % (0.0-2.0); EOS # 0.2 K/uL (0.0-0.7); EOS % 3.9 % (0.0-4.0); HEMOGLOBIN 14.4 g/dL (12.0-18.0); LYMPH # 1.8 K/uL (1.0-4.3); LYMPH % 28.6 % (20.0-40.0); MEAN CELL VOLUME 81.4 fL (80.0-94.0); MEAN CORPUSCULAR HEMOGLOBIN 27.8 pg (27.0-31.0); MEAN CORPUSCULAR HGB CONC 34.2 g/dL (33.0-37.0); MEAN PLATELET VOLUME 9.5 fL (7.2-11.7); MONO # 0.6 K/uL (0.0-0.8); MONO % 9.9 % (0.0-10.0); NEUT # 3.5 K/uL (1.8-7.0); NEUT % 56.9 % (50.0-75.0); NRBC % 0.3 % (0.0-2.0); RBC 5.17 Mil/uL (4.40-5.90); RED CELL DISTRIBUTION WIDTH 13.6 % (11.5-14.5); WHITE BLOOD COUNT 6.2 K/uL (4.8-10.8)
[2017-10-22 06:44] LABS: ALB/GLOB RATIO 1.3 (1.0-2.1); ALBUMIN 4.2 g/dL (3.5-5.0); ALT/SGPT 40 U/L (21-72); AST/SGOT 28 U/L (17-59); BLOOD UREA NITROGEN 24 mg/dL (9-20); CALCIUM 9.7 mg/dl (8.6-10.4); GFR AFRICAN-AMERICAN > 60; GFR NON-AFRICAN AMERICAN > 60; INR 1.1; PROTHROMBIN TIME 12.4 SECONDS (9.7-12.2)
[2017-10-22] MEDS: (Novolin R) Insulin Human Regular 100 units/ml vial SC SCH ×4 (08:00→22:56)
[2017-10-22 08:25] VITALS: RESP 18
[2017-10-22] MEDS: Enoxaparin 30 mg Syringe SC SCH (09:54)
[2017-10-22 11:22] LABS: 23 KD (IGG) BAND Nonreactive
--- NOTE | 2017-10-22 13:02 | CP.PCM.PN ---
Subjective - Date & Time of Evaluation Date of Evaluation: 10/22/17 Time of Evaluation: 09:00 - Subjective Subjective: Rajiv Fernández, PGY1 Cardiology Progress Note for Dr. Peng Patient was seen and examined at bedside this morning. Vital signs stable. Patient has no current complaints. He denied chest pain, palpitations, shortness of breath, abdominal pain, lightneadedness, n/v/d. No overnight changes. Patient was explained results of diagnostic cardiac catherization procedure from 10/19. Patient was also told that an EP eval and pacemaker is being considered. A full 12 point ROS was conducted and unremarkable except as stated above. Objective - Vital Signs/Intake and Output Vital Signs (last 24 hours): Temp Pulse Resp BP Pulse Ox 97.5 F L 72 18 138/78 99 10/22/17 12:00 10/22/17 12:00 10/22/17 12:00 10/22/17 12:00 10/22/17 08:00 Intake and Output: 10/22/17 10/22/17 06:59 18:59 Intake Total 50 Output Total 1150 Balance -1100 - Medications Medications: Current Medications Aspirin (Aspirin Chewable) 81 mg PO DAILY [facility] Last Admin: 10/22/17 09:55 Dose: 81 mg Clopidogrel Bisulfate (Plavix) 75 mg PO DAILY [facility] Last Admin: 10/22/17 09:55 Dose: 75 mg Dextrose (Glutose 15) 15 gm PO ONCE PRN; Protocol PRN Reason: Hypoglycemia Protocol Dextrose (Dextrose 50% Inj) 0 ml IV STAT PRN; Protocol PRN Reason: Hypoglycemia Protocol Enoxaparin Sodium (Lovenox) 30 mg SC DAILY [facility] Last Admin: 10/22/17 09:54 Dose: 30 mg Famotidine (Pepcid) 20 mg PO BID [facility] Last Admin: 10/22/17 09:55 Dose: 20 mg Glucagon (Glucagen Diagnostic Kit) 1 mg IM STAT PRN; Protocol PRN Reason: Hypoglycemia Protocol Insulin Human Regular (Novolin R) 0 unit SC ACHS [facility] PRN Reason: Protocol Last Admin: 10/22/17 08:00 Dose: Not Given Lisinopril (Zestril) 2.5 mg PO DAILY [facility] Last Admin: 10/22/17 09:55 Dose: 2.5 mg Ondansetron HCl (Zofran Inj) 4 mg IVP Q4 PRN PRN Reason: nausea/vomiting - Labs Labs: 10/22/17 06:17 18 06:17 PT 12.4 SECONDS (9.7-12.2) H 10/22/17 06:17 INR 1.1 10/22/17 06:17 APTT 35 SECONDS (21-34) H 10/22/17 06:17 - Constitutional Appears: Well, No Acute Distress - Head Exam Head Exam: ATRAUMATIC, NORMAL INSPECTION, NORMOCEPHALIC - Eye Exam Eye Exam: EOMI, Normal appearance, PERRL Pupil Exam: NORMAL ACCOMODATION, PERRL - ENT Exam ENT Exam: Mucous Membranes Moist, Normal Exam - Neck Exam Neck Exam: Full ROM, Normal Inspection. absent: Lymphadenopathy - Respiratory Exam Respiratory Exam: Clear to Ausculation Bilateral, NORMAL BREATHING PATTERN. absent: Rales, Rhonchi, Wheezes, Respiratory Distress - Cardiovascular Exam Cardiovascular Exam: RRR, +S1, +S2, Murmur (Systolic murmur (Aortic valve replacement)) - GI/Abdominal Exam GI & Abdominal Exam: Soft, Normal Bowel Sounds. absent: Tenderness - Extremities Exam Extremities Exam: Full ROM, Normal Capillary Refill, Normal Inspection. absent : Joint Swelling, Pedal Edema - Back Exam Back Exam: NORMAL INSPECTION - Neurological Exam Neurological Exam: Alert, Awake, Normal Gait, Oriented x3 Neuro motor strength exam: Left Upper Extremity: 5, Right Upper Extremity: 5, Left Lower Extremity: 5, Right Lower Extremity: 5 - Skin Skin Exam: Dry, Intact, Normal Color, Warm Assessment and Plan - Assessment and Plan (Free Text) Assessment: Patient is a 67 y/o M with PMHx of HTN, HLD, DM, Aortic Valve Replacement (2014) who presented to ED with acute dizziness, diaphoresis, headache, nausea, vomiting. Patient BIBA; given ASA/nitro sublingual x2 by EMS. In ED, HR was 48, given atropine without improvement. Started on dopamine gtt. Head CT, CXR, CT Chest done. Transferred to ICU for management. Cardiology consulted for symptomatic bradycardia. Neurology also consulted for basal ganglia lacunar infarct found on Head CT, r/o cardioembolic source. Patient has been asymptomatic in the unit with vital signs stable (off dopamine gtt). Patient's cardiac cath (10/19) indicated moderate two vessel CAD, however, etiology for complete heart block is likely non-ischemic in origin. Patient needs EP evaluation for possible permanent pacemaker. Plan: Symptomatic Sinus Bradycardia - Cardiac cath (10/19): moderate two vessel CAD. Proximal 70% stenosis. Diagonal branch 65% stenosis. Distal LAD 40% stenosis. Proximal RCA 55% stenosis. - Etiology for complete heart block is non-ischemic. Patient requires EP evaluation for possible permanent Pacemaker. - Current vital signs stable; normotensive with MAP > 65 and normal heart rate. However, several PACs were noted on rhythm during interview. - Currently asymptomatic; denies cp, sob, palpitations, diaphoresis - EKG (10/20): Rate 98 bpm. Occasional premature ventricular complexes. Nonspecific intraventricular block. - EKG (10/17): Rate 96 bpm. Sinus rhythm with premature supraventricular complexes. LBBB. - EKG (ED): HR 48, sinus bradycardia - ECHO (10/17): LVEF of 35.6% (new onset drop in EF). Mild concentric LVH, moderately to severely impaired systolic function, regional wall motion abnormalities, bioprosthetic aortic valve, mild to moderate valvular aortic stenosis, mild AR, mild TR, mild pulmonary htn. - History of aortic valve replacement (08/2014) Acute onset Headache and Dizziness - Head CT (10/18): negative for acute infarct, mass, or hemorrhage (see full report). - Head CT (10/16) shows left basal ganglia lacunar infarct, chronic changes (see full report). Brain MRI suggested (patient refused due to claustrophobia). - Currently no headaches or dizziness; Neurologic exam is wnl & no focal neurological defects - Neurology is following the case, appreciated recs. - carotid doppler (10/18): no significant stenosis. - WILDER ordered as per neuro to r/o cardioembolic source - r/o sepsis: blood cx negative x2 (prelim) and negative for MRSA; c/w antibiotic coverage HTN/HLD - Currently normotensive - c/w home meds - Maintain MAP > 65 DM - ISS - Accuchecks - Maintain euglycemia GI PPX: pepcid DVT ppx: lovenox Dispo: Patient is being managed in the ICU, may be transferred to telemetry. Pending EP eval for possible permanent pacemaker. Case was discussed and reviewed with Foot Tender Dr. Peng.
--- NOTE | 2017-10-22 16:00 | CP.PCM.PN ---
Subjective - Date & Time of Evaluation Date of Evaluation: 10/22/17 Time of Evaluation: 15:59 - Subjective Subjective: Pt seen and examined at bedside. Pt reports no new overnight complaints. Pt eating in chair and is able to communicate and follow conversation clearly. Pt reports ability to walk around room and has no cardiac symptoms upon light physical exertion. Pt denies chest pain, SOB, cough, wheezing, dizziness, LOC, palpitations, leg pains, n/v f/c. Objective - Vital Signs/Intake and Output Vital Signs (last 24 hours): Temp Pulse Resp BP Pulse Ox 97.5 F L 72 18 138/78 99 10/22/17 12:00 10/22/17 12:00 10/22/17 12:00 10/22/17 12:00 10/22/17 08:00 Intake and Output: 10/22/17 10/22/17 06:59 18:59 Intake Total 50 Output Total 1150 Balance -1100 - Medications Medications: Current Medications Aspirin (Aspirin Chewable) 81 mg PO DAILY [facility] Last Admin: 10/22/17 09:55 Dose: 81 mg Clopidogrel Bisulfate (Plavix) 75 mg PO DAILY [facility] Last Admin: 10/22/17 09:55 Dose: 75 mg Dextrose (Glutose 15) 15 gm PO ONCE PRN; Protocol PRN Reason: Hypoglycemia Protocol Dextrose (Dextrose 50% Inj) 0 ml IV STAT PRN; Protocol PRN Reason: Hypoglycemia Protocol Enoxaparin Sodium (Lovenox) 30 mg SC DAILY [facility] Last Admin: 10/22/17 09:54 Dose: 30 mg Famotidine (Pepcid) 20 mg PO BID [facility] Last Admin: 10/22/17 09:55 Dose: 20 mg Glucagon (Glucagen Diagnostic Kit) 1 mg IM STAT PRN; Protocol PRN Reason: Hypoglycemia Protocol Insulin Human Regular (Novolin R) 0 unit SC ACHS [facility] PRN Reason: Protocol Last Admin: 10/22/17 12:00 Dose: Not Given Lisinopril (Zestril) 2.5 mg PO DAILY [facility] Last Admin: 10/22/17 09:55 Dose: 2.5 mg Ondansetron HCl (Zofran Inj) 4 mg IVP Q4 PRN PRN Reason: nausea/vomiting - Labs Labs: 10/22/17 06:17 10/22/17 06:17 PT 12.4 SECONDS (9.7-12.2) H 10/22/17 06:17 INR 1.1 10/22/17 06:17 APTT 35 SECONDS (21-34) H 10/22/17 06:17 Assessment and Plan - Assessment and Plan (Free Text) Assessment: Patient is a 67 y/o M with PMHx of HTN, HLD, DM, Aortic Valve Replacement (2014) who presented to ED with acute dizziness, diaphoresis, headache, nausea, vomiting. Plan: Symptomatic Bradycardia 10/[address]: no acute findings EKG (ED): HR 48, sinus bradycardia 10/17 EKG: Rate 96 bpm, sinus rhhythm with premature supraventricular complexes. LBBB. s/p Aortic Valve replacement in 08/2014 Echo: VEF of 35.6% (new onset drop in EF). Mild concentric LVH, moderately to severely impaired systolic function, regional wall motion abnormalities, bioprosthetic aortic valve, mild to moderate valvular aortic stenosis, mild AR, mild TR, mild pulmonary htn EP Study: vertigo hypoglycemia vs neurological event related to bradycardia. Neurological event 2/2 vagal or visceral reflex, worsened by nitroglycerin administration or severe paroxysmal and transient failure of sinus node and junctional escape rhythm. Exclude coronary vs thyroid disease, a tilt table followed by an EP study alternatively assuming a primary conduction abnormality its not unreasonable to implant a device. Avoid dane stressors. Most recent EKG shows complete heart block; plan for pacemaker as per Dr. Peng Lacunar Infarct Head CT (10/16) shows left basal ganglia lacunar infarct, chronic changes. Brain MRI suggested Aspirin 81 mg po daily Plavix 75 mg po daily DM2 ISS; Hypoglycemic protocol Accuchecks ACHS Hypertension 135/81 Lisinopril 2.5mg po daily PPX DVT ppx: Lovenox 30 mg sc daily GI ppx: Pepcid 20 mg po bid Dispo: pt to be transferred to [facility] for EP intervention
[2017-10-22 18:47] VITALS: O2SAT 97
--- NOTE | 2017-10-22 22:17 | CP.PCM.PN ---
Subjective - Date & Time of Evaluation Date of Evaluation: 10/22/17 Time of Evaluation: 22:14 - Subjective Subjective: Events reviewed Clinically without change Offered no new complaints Exam Afebrile No distress Lying down in bed No JVD Clear lungs No edema Tele: ventricular premature complexes; couplets/triplets Labs: reviewed Plan As outlined yesterday DW patient procedures risks including bleeding infection tamponade pneumothorax arryhythmia nerve damage renal failure; he verbalized understanding and assents NPO Transfer to [facility] in am Objective - Vital Signs/Intake and Output Vital Signs (last 24 hours): Temp Pulse Resp BP Pulse Ox 97.5 F L 72 18 154/99 H 97 10/22/17 12:00 10/22/17 18:00 10/22/17 16:00 10/22/17 16:00 10/22/17 16:00 - Medications Medications: Current Medications Aspirin (Aspirin Chewable) 81 mg PO DAILY [facility] Last Admin: 10/22/17 09:55 Dose: 81 mg Clopidogrel Bisulfate (Plavix) 75 mg PO DAILY [facility] Last Admin: 10/22/17 09:55 Dose: 75 mg Dextrose (Glutose 15) 15 gm PO ONCE PRN; Protocol PRN Reason: Hypoglycemia Protocol Dextrose (Dextrose 50% Inj) 0 ml IV STAT PRN; Protocol PRN Reason: Hypoglycemia Protocol Enoxaparin Sodium (Lovenox) 30 mg SC DAILY [facility] Last Admin: 10/22/17 09:54 Dose: 30 mg Famotidine (Pepcid) 20 mg PO BID [facility] Last Admin: 10/22/17 17:26 Dose: 20 mg Glucagon (Glucagen Diagnostic Kit) 1 mg IM STAT PRN; Protocol PRN Reason: Hypoglycemia Protocol Insulin Human Regular (Novolin R) 0 unit SC [facility] PRN Reason: Protocol Last Admin: 10/22/17 17:25 Dose: Not Given Lisinopril (Zestril) 2.5 mg PO DAILY [facility] Last Admin: 10/22/17 09:55 Dose: 2.5 mg Ondansetron HCl (Zofran Inj) 4 mg IVP Q4 PRN PRN Reason: nausea/vomiting - Labs Labs: 10/22/17 06:17 10/22/17 06:17 PT 12.4 SECONDS (9.7-12.2) H 10/22/17 06:17 INR 1.1 10/22/17 06:17 APTT 35 SECONDS (21-34) H 10/22/17 06:17
--- NOTE | 2017-10-22 23:15 | CARD ---
APPROVED REPORT Date of service: 10/21/2017 EKG Measurement Heart [id number] [id number] <Conclusion> Sinus rhythm with marked sinus arrhythmia with occasional premature ventricular complexes Left Bundle Branch Block Abnormal ECG
[2017-10-23 08:09] VITALS: BP 144/78; TEMP 97.8
[2017-10-23] MEDS: (Novolin R) Insulin Human Regular 100 units/ml vial SC SCH (08:14)
[2017-10-23] MEDS: Enoxaparin 30 mg Syringe SC SCH (09:15)
--- NOTE | 2017-10-23 09:48 | CP.PCM.PN ---
Subjective - Date & Time of Evaluation Date of Evaluation: 10/23/17 Time of Evaluation: 08:00 - Subjective Subjective: Rajiv Fernández, PGY1 Cardiology Progress Note for Dr. Peng Patient was seen and examined at bedside. As per Dr. Cuevas, patient is pending transfer to [facility] for Pacemaker placement. Patient denied chest pain, shortness of breath, lightheadedness, dizziness, abdominal pain, nausea, vomiting, diarrhea, and pain in the extremities. Patient is doing well. No overnight changes. A full 12 point ROS was conducted and unremarkable except as stated above. Objective - Vital Signs/Intake and Output Vital Signs (last 24 hours): Temp Pulse Resp BP Pulse Ox 97.8 F 76 18 144/78 97 10/23/17 04:00 10/23/17 04:00 10/23/17 04:00 10/23/17 04:00 10/23/17 04:00 Intake and Output: 10/23/17 10/23/17 06:59 18:59 Intake Total 0 Output Total 400 Balance -400 - Medications Medications: Current Medications Aspirin (Aspirin Chewable) 81 mg PO DAILY [facility] Last Admin: 10/23/17 09:00 Dose: Not Given Clopidogrel Bisulfate (Plavix) 75 mg PO DAILY [facility] Last Admin: 10/23/17 09:01 Dose: Not Given Dextrose (Glutose 15) 15 gm PO ONCE PRN; Protocol PRN Reason: Hypoglycemia Protocol Dextrose (Dextrose 50% Inj) 0 ml IV STAT PRN; Protocol PRN Reason: Hypoglycemia Protocol Enoxaparin Sodium (Lovenox) 30 mg SC DAILY [facility] Last Admin: 10/23/17 09:15 Dose: Not Given Famotidine (Pepcid) 20 mg PO BID [facility] Last Admin: 10/23/17 09:00 Dose: Not Given Glucagon (Glucagen Diagnostic Kit) 1 mg IM STAT PRN; Protocol PRN Reason: Hypoglycemia Protocol Insulin Human Regular (Novolin R) 0 unit SC ACHS [facility] PRN Reason: Protocol Last Admin: 10/23/17 08:14 Dose: Not Given Lisinopril (Zestril) 2.5 mg PO DAILY [facility] Last Admin: 10/23/17 09:01 Dose: Not Given Ondansetron HCl (Zofran Inj) 4 mg IVP Q4 PRN PRN Reason: nausea/vomiting - Labs Labs: 10/22/17 06:17 08/13/18 06:17 PT 12.4 SECONDS (9.7-12.2) H 10/22/17 06:17 INR 1.1 10/22/17 06:17 APTT 35 SECONDS (21-34) H 10/22/17 06:17 - Constitutional Appears: Well, No Acute Distress - Head Exam Head Exam: ATRAUMATIC, NORMAL INSPECTION, NORMOCEPHALIC - Eye Exam Eye Exam: EOMI, Normal appearance, PERRL Pupil Exam: NORMAL ACCOMODATION, PERRL - ENT Exam ENT Exam: Mucous Membranes Moist, Normal Exam - Neck Exam Neck Exam: Full ROM, Normal Inspection. absent: Lymphadenopathy - Respiratory Exam Respiratory Exam: Clear to Ausculation Bilateral, NORMAL BREATHING PATTERN. absent: Chest Wall Tenderness, Rales, Rhonchi, Wheezes, Respiratory Distress, Stridor - Cardiovascular Exam Cardiovascular Exam: REGULAR RHYTHM, +S1, +S2. absent: Murmur - GI/Abdominal Exam GI & Abdominal Exam: Soft, Normal Bowel Sounds. absent: Tenderness - Extremities Exam Extremities Exam: Full ROM, Normal Capillary Refill, Normal Inspection. absent : Joint Swelling, Pedal Edema - Back Exam Back Exam: NORMAL INSPECTION - Neurological Exam Neurological Exam: Alert, Awake, Oriented x3 Neuro motor strength exam: Left Upper Extremity: 5, Right Upper Extremity: 5, Left Lower Extremity: 5, Right Lower Extremity: 5 - Skin Skin Exam: Dry, Intact, Normal Color, Warm Assessment and Plan - Assessment and Plan (Free Text) Assessment: Patient is a 67 y/o M with PMHx of HTN, HLD, DM, Aortic Valve Replacement (2014) who presented to ED with acute dizziness, diaphoresis, headache, nausea, vomiting. Patient BIBA; given ASA/nitro sublingual x2 by EMS. In ED, HR was 48, given atropine without improvement. Started on dopamine gtt. Transferred to ICU for management. Cardiology consulted for symptomatic bradycardia. Neurology also consulted for basal ganglia lacunar infarct found on Head CT, r/o cardioembolic source. Patient has been asymptomatic in the unit with vital signs stable (off dopamine gtt). Patient's cardiac cath (10/19) indicated moderate two vessel CAD, however, etiology for complete heart block is likely non-ischemic in origin. Patient is pending permanent pacemaker placement at [facility]. Plan: Symptomatic Sinus Bradycardia - Patient is pending permanent pacemaker placement at [facility]. - Cardiac cath (10/19): moderate two vessel CAD. Proximal 70% stenosis. Diagonal branch 65% stenosis. Distal LAD 40% stenosis. Proximal RCA 55% stenosis. - Etiology for complete heart block is non-ischemic. - Current vital signs stable; normotensive with MAP > 65 and normal heart rate. However, several PACs were noted on rhythm during interview. - Currently asymptomatic; denies cp, sob, palpitations, diaphoresis - EKG (10/20): Rate 98 bpm. Occasional premature ventricular complexes. Nonspecific intraventricular block. - EKG (10/17): Rate 96 bpm. Sinus rhythm with premature supraventricular complexes. LBBB. - EKG (ED): HR 48, sinus bradycardia - ECHO (10/17): LVEF of 35.6% (new onset drop in EF). Mild concentric LVH, moderately to severely impaired systolic function, regional wall motion abnormalities, bioprosthetic aortic valve, mild to moderate valvular aortic stenosis, mild AR, mild TR, mild pulmonary htn. - History of aortic valve replacement (08/2014) Acute onset Headache and Dizziness - Head CT (10/18): negative for acute infarct, mass, or hemorrhage (see full report). - Head CT (10/16) shows left basal ganglia lacunar infarct, chronic changes (see full report). Brain MRI suggested (patient refused due to claustrophobia). - Currently no headaches or dizziness; Neurologic exam is wnl & no focal neurological defects - Neurology is following the case, appreciated recs. - Carotid Doppler (10/18): no significant stenosis. - WILDER ordered as per neuro to r/o cardioembolic source - r/o sepsis: blood cx negative x2 (prelim) and negative for MRSA; c/w antibiotic coverage HTN/HLD - Currently normotensive - c/w home meds - Maintain MAP > 65 DM - ISS - Accuchecks - Maintain euglycemia GI PPX: pepcid DVT ppx: lovenox Dispo: Patient is to be transferred to [facility] for permanent pacemaker. Case was discussed and reviewed with Transportation Maintenance Specialist Dr. Peng.
[2017-10-23 10:28] LABS: BASO # 0.1 K/uL (0.0-0.2); BASO % 0.6 % (0.0-2.0); EOS # 0.1 K/uL (0.0-0.7); MEAN PLATELET VOLUME 9.3 fL (7.2-11.7)
[2017-10-23 10:38] LABS: EOS % 0.9 % (0.0-4.0); LYMPH # 1.6 K/uL (1.0-4.3); LYMPH % 13.5 % (20.0-40.0); MEAN CELL VOLUME 81.1 fL (80.0-94.0); MEAN CORPUSCULAR HEMOGLOBIN 28.2 pg (27.0-31.0); MEAN CORPUSCULAR HGB CONC 34.7 g/dL (33.0-37.0); MONO # 0.6 K/uL (0.0-0.8); MONO % 5.3 % (0.0-10.0); NEUT # 9.6 K/uL (1.8-7.0); NEUT % 79.7 % (50.0-75.0); NRBC % 0.3 % (0.0-2.0); RBC 5.69 Mil/uL (4.40-5.90); RED CELL DISTRIBUTION WIDTH 13.9 % (11.5-14.5)
[2017-10-23 10:39] VITALS: PULSE 90
[2017-10-23 10:46] LABS: ALB/GLOB RATIO 1.3 (1.0-2.1); ALBUMIN 4.6 g/dL (3.5-5.0); ALT/SGPT 65 U/L (21-72); AST/SGOT 42 U/L (17-59); BLOOD UREA NITROGEN 22 mg/dL (9-20); CALCIUM 10.1 mg/dl (8.6-10.4); GFR AFRICAN-AMERICAN > 60; GFR NON-AFRICAN AMERICAN > 60
--- NOTE | 2017-10-24 13:37 | CARD ---
APPROVED REPORT Date of service: 10/18/2017 EKG Measurement Heart [id number] <Conclusion> Sinus rhythm with premature supraventricular complexes Left bundle branch block Abnormal ECG
--- NOTE | 2017-10-26 15:22 | CP.PCM.DIS ---
Provider - Provider Date of Admission: 10/16/17 21:03 Attending physician: Triston Leyva MD Time Spent in preparation of Discharge (in minutes): 45 Diagnosis - Discharge Diagnosis (1) CAD (coronary artery disease) Status: Chronic (2) CHB (complete heart block) Status: Resolved (3) CHF (congestive heart failure) Status: Chronic (4) Diabetes mellitus Status: Chronic (5) Dizziness Status: Resolved (6) Headache Status: Resolved (7) Hypotension Status: Resolved (8) Nausea & vomiting Status: Resolved (9) S/P AVR (aortic valve replacement) Status: Chronic (10) Symptomatic bradycardia Status: Chronic (11) Arrhythmia Status: Chronic Hospital Course - Lab Results Lab Results: Micro Results 10/17/17 01:11 Blood-Venous Blood Culture - Final NO GROWTH AFTER 5 DAYS 10/17/17 01:11 Blood-Venous Gram Stain - Final TEST NOT PERFORMED 10/17/17 01:11 Blood-Venous Blood Culture - Final NO GROWTH AFTER 5 DAYS 10/17/17 01:11 Blood-Venous Gram Stain - Final TEST NOT PERFORMED 10/17/17 00:45 Nose MRSA Culture (Admit) - Final MRSA NOT DETECTED Most Recent Lab Values WBC 12.0 K/uL (4.8-10.8) H D 10/23/17 10:22 RBC 5.69 Mil/uL (4.40-5.90) 10/23/17 10:22 Hgb 16.0 g/dL (12.0-18.0) 10/23/17 10:22 Hct 46.1 % (35.0-51.0) 10/23/17 10:22 MCV 81.1 fL (80.0-94.0) 10/23/17 10:22 MCH 28.2 pg (27.0-31.0) 10/23/17 10:22 MCHC 34.7 g/dL (33.0-37.0) 10/23/17 10:22 RDW 13.9 % (11.5-14.5) 10/23/17 10:22 Plt Count 124 K/uL (130-400) L 10/23/17 10:22 MPV 9.3 fL (7.2-11.7) 10/23/17 10:22 Neut % (Auto) 79.7 % (50.0-75.0) H 10/23/17 10:22 Lymph % (Auto) 13.5 % (20.0-40.0) L 10/23/17 10:22 [place] % (Auto) 5.3 % (0.0-10.0) 10/23/17 10:22 Eos % (Auto) 0.9 % (0.0-4.0) 10/23/17 10:22 Baso % (Auto) 0.6 % (0.0-2.0) 10/23/17 10:22 Neut # (Auto) 9.6 K/uL (1.8-7.0) H 10/23/17 10:22 Lymph # (Auto) 1.6 K/uL (1.0-4.3) 10/23/17 10: [place] # (Auto) 0.6 K/uL (0.0-0.8) 10/23/17 10: Eos # (Auto) 0.1 K/uL (0.0-0.7) 10/23/17 10: Baso # (Auto) 0.1 K/uL (0.0-0.2) 10/23/17 10:22 Differential Comment 10/23/17 10: ESR 15 mm/hr (0-15) 10/18/17 09:57 PT 12.4 SECONDS (9.7-12.2) H 10/22/17 06:17 INR 1.1 10/22/17 06:17 APTT 35 SECONDS (21-34) H 10/22/17 06:17 Puncture Site A 10/19/17 20:35 pCO2 42 mm/Hg (35-45) 10/19/17 20:35 pO2 39 mm/Hg (80-100) L* 10/19/17 20:35 HCO3 21.4 mmol/L (21-28) 10/19/17 20:35 ABG pH 7.33 (7.35-7.45) L 10/19/17 20:35 ABG Total CO2 23.4 mmol/L (22-28) 10/19/17 20:35 ABG O2 Saturation 73.6 % (95-98) L 10/19/17 20:35 ABG Base Excess -3.7 mmol/L (-2.0-3.0) L 10/19/17 20:35 ABG Hemoglobin 12.8 g/dL (11.7-17.4) 10/19/17 20:35 ABG Carboxyhemoglobin 1.6 % (0.5-1.5) H 10/19/17 20:35 POC ABG HHb (Measured) 25.8 % (0.0-5.0) H 10/19/17 20:35 ABG Methemoglobin 0.6 % (0.0-3.0) 10/19/17 20:35 Devang Test Na 10/19/17 20:35 VBG pH 7.34 (7.32-7.43) 10/19/17 20:35 VBG pCO2 41 mmHg (40-60) 10/19/17 20:35 VBG HCO3 21.4 mmol/L 10/19/17 20:35 VBG Total CO2 23.4 mmol/L (22-28) 10/19/17 20:35 VBG O2 Sat (Calc) 74.8 % (40-65) H 10/19/17 20:35 VBG Base Excess -3.5 mmol/L (0.0-2.0) L 10/19/17 20:35 VBG Potassium 3.1 mmol/L (3.6-5.2) L 10/19/17 20:35 Hgb O2 Saturation 72.1 % (95.0-98.0) L 10/19/17 20:35 Sodium 144.0 mmol/l (132-148) 10/19/17 20:35 Chloride 112.0 mmol/L (98-107) H 10/19/17 20:35 Glucose 84 mg/dl (75-110) 10/19/17 20:35 Lactate 0.8 mmol/L (0.7-2.1) 10/19/17 20:35 Crit Value Called To Kamaljit smith rn 10/19/17 20:35 Crit Value Called By Bimal 10/19/17 20:35 Crit Value Read Back Y 10/19/17 20:35 Blood Gas Notified Time 204010/19/17 20:35 Sodium 145 mmol/L (132-148) 10/23/17 10: Potassium 4.6 mmol/L (3.6-5.2) 10/23/17 10:22 Chloride 107 mmol/L (98-107) 10/23/17 10:22 Carbon Dioxide 21 mmol/L (22-30) L 10/23/17 10:22 Anion Gap 21 (10-20) H 10/23/17 10:22 BUN 22 mg/dL (9-20) H 10/23/17 10:22 Creatinine 1.0 mg/dL (0.8-1.5) 10/23/17 10:22 Est GFR ( Amer) > 60 10/23/17 10:22 Est GFR (Non-Af Amer) > 60 10/23/17 10:22 POC Glucose (mg/dL) 104 mg/dL (65-110) 10/23/17 07:18 Random Glucose 130 mg/dL (75-110) H 10/23/17 10:22 Calcium 10.1 mg/dl (8.6-10.4) 10/23/17 10:22 Phosphorus 3.4 mg/dL (2.5-4.5) 10/23/17 10:22 Magnesium 1.6 mg/dL (1.6-2.3) 10/23/17 10:22 Total Bilirubin 0.7 mg/dL (0.2-1.3) 10/23/17 10:22 AST 42 U/L (17-59) 10/23/17 10:22 ALT 65 U/L (21-72) 10/23/17 10:22 Alkaline Phosphatase 65 U/L (38-126) 10/23/17 10:22 Total Creatine Kinase 93 U/L (55-170) 10/16/17 19:46 CK-MB (Mass) 1.43 ng/mL (0.0-3.38) 10/16/17 19:46 Troponin I < 0.0120 ng/mL (0.00-0.120) 10/17/17 06:27 C-React Prot High Sens 3.01 mg/L (1.00-3.00) H 10/18/17 09:57 NT-Pro-B Natriuret Pep 739 pg/mL (0-900) 10/16/17 19:46 Total Protein 8.2 g/dL (6.3-8.3) 10/23/17 10:22 Albumin 4.6 g/dL (3.5-5.0) 10/23/17 10:22 Globulin 3.5 gm/dL (2.2-3.9) 10/23/17 10:22 Albumin/Globulin Ratio 1.3 (1.0-2.1) 10/23/17 10:22 Triglycerides 109 mg/dL (0-149) D 10/18/17 09:57 Cholesterol 153 mg/dL (0-199) 10/18/17 09:57 LDL Cholesterol Direct 83 mg/dL (0-129) 10/18/17 09:57 HDL Cholesterol 29 mg/dL (30-70) L 10/18/17 09:57 Lipase 88 U/L (23-300) 10/16/17 19:46 Homocysteine 10.2 umol/L (6.6-14.8) 10/18/17 09:57 Procalcitonin < 0.05 NG/ML (0.19-0.49) L 10/16/17 23:42 Free T4 0.81 ng/dL (0.78-2.19) 10/18/17 09:57 TSH 3rd Generation 1.28 mIU/L (0.46-4.68) 10/18/17 09:57 Plasma Cortisol PM 30.4 ug/dL (1.7-14.1) H 10/16/17 21:48 Venous Blood Potassium 3.1 mmol/L (3.6-5.2) L 10/19/17 20:35 Urine Color Yellow (YELLOW) 10/16/17 21:48 Urine Clarity Clear (Clear) 10/16/17 21:48 Urine pH 5.0 (5.0-8.0) 10/16/17 21:48 Ur Specific Duff 1.010 (1.003-1.030) 10/16/17 21:48 Urine Protein Negative mg/dL (NEGATIVE) 10/16/17 21:48 Urine Glucose (UA) 1+ mg/dL (Normal) H 10/16/17 21:48 Urine Ketones Trace mg/dL (NEGATIVE) 10/16/17 21:48 Urine Blood Negative (NEGATIVE) 10/16/17 21:48 Urine Nitrate Negative (NEGATIVE) 10/16/17 21:48 Urine Bilirubin Negative (NEGATIVE) 10/16/17 21:48 Urine Urobilinogen Normal mg/dL (0.2-1.0) 10/16/17 21:48 Ur Leukocyte Esterase Neg Magi/uL (Negative) 10/16/17 21:48 Urine WBC (Auto) 1 /hpf (0-5) 10/16/17 21:48 Urine RBC (Auto) 1 /hpf (0-3) 10/16/17 21:48 Urine Bacteria Rare (<OCC) 10/16/17 21:48 Vancomycin Trough 12.7 ug/mL (5.0-10.0) H 10/18/17 09:57 Serum Immunofixation Detected (Not Detected) H 10/18/17 09:57 RPR Nonreactive (NONREACTIVE) 10/19/17 Unknown Lyme Disease Screen <0.90 index 10/19/17 12:03 Lyme IgG 18 kDa Band Nonreactive 10/18/17 09:57 Lyme IgG 23 kDa Band Nonreactive 10/18/17 09:57 Lyme IgG 28 kDa Band Nonreactive 10/18/17 09:57 Lyme IgG 30 kDa Band Nonreactive 10/18/17 09:57 Lyme IgG 39 kDa Band Nonreactive 10/18/17 09:57 Lyme IgG 41 kDa Band Reactive H 10/18/17 09:57 Lyme IgG 45 kDa Band Nonreactive 10/18/17 09:57 Lyme IgG 58 kDa Band Nonreactive 10/18/17 09:57 Lyme IgG 66 kDa Band Nonreactive 10/18/17 09:57 Lyme IgG 93 kDa Band Nonreactive 10/18/17 09:57 Lyme IgG W Blot Interp Negative (Negative) 10/18/17 09:57 Lyme IgM 23 kDa Band Nonreactive 10/18/17 09:57 Lyme IgM 39 kDa Band Nonreactive 10/18/17 09:57 Lyme IgM 41 kDa Band Nonreactive 10/18/17 09:57 Lyme IgM W Blot Interp Negative (Negative) 10/18/17 09:57 Blood Type O POSITIVE 10/16/17 19:46 Antibody Screen Negative 10/16/17 19:46 - Hospital Course Hospital Course: CC: Headche and diaphoretic HPI (As per family member and some information from patient) Patient is a 67 year old male with past medical history of HTN, DM, Hypercholesterolemia, Congenital aortic valve dz? (Aortic valve replacement 2 years ago), who was brought in by ambulance due to symptoms of sudden dizziness , diaphoresis and headache with associated symptoms of nausea and vomiting. As per patient, he was completely asymptomatic and doing well until the onset of his symptoms. As per EMS, patient was noted to be hypotensive and was given loading dose of aspirin and Sublingual Nitro X2. Upon arrival to the ED, patient was noted to have additional symptoms of sinus bradycardia (pulse rate of 48), patient was given NS bolus and 2mg of atropine, which did not provide much improvement. ICU evaluation was requested as patient was started on dopamine drip in the ED. Patient admits to dizziness, headache, nausea, non- bilious vomit X6, diaphoretic, dyspnea but denies chest pain, recent sickness, sick contact or recent travels, neck pain and abdominal pain. Patient denies any past episodes of similar presentation. Code Status: Full code PMHx: HTN, DM, Hypercholesterolemia, Congenital aortic valve dz? PSHx: Kidney biopsy (? Left for proteinuria) and Aortic valve replacement 2 years ago) FHx: Non-contributory Medications: Allergies: NKDA Social Hx: Lives with . 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 Denies current or former use of tobacco, ETOH and illicit drugs Hospital Course: 10/16 Pt given dopamine to control BP. 10/17 Pt Taken off of dopamine gtt 9 am . Pt went for Cardiac Cath. Ep consulted : discussed diagnostic and therapeutic measure with the pt, including but not limited to pacemaker implantation. neurpo consulted: continued ASA 81mg and plavix 75mg. 10/20 Most recent EKG shows complete heart block; plan for pacemaker as per Dr. Peng(int cardio). 10/23 Pt transfered to [facility] under Dr palencia care for EP intervention. Diagnostics and imaging: CXR (10/16) shows cardiomegaly without pulmonary vascular congestion. No acute pulmonary disease. EKG shows sinus bradycardia with PVCs CT (10/16) shows left basal ganglia lacunar infarct, chronic changes echocardiogram (10/17) shows LVEF of 35.6%, mild concentric LVH, moderately to severely impaired systolic function, regional wall motion abnormalities, bioprosthetic aortic valve, mild to moderate valvular aortic stenosis, mild AR, mild TR, mild pulmonary htn.] carotid dopplar does not suggest hemodynamically significant stenosis of right or left extracranial carotid arteries. EP Study: vertigo hypoglycemia vs neurological event related to bradycardia. Neurological event 2/2 vagal or visceral reflex, worsened by nitroglycerin administration or severe paroxysmal and transient failure of sinus node and junctional escape rhythm. Exclude coronary vs thyroid disease, a tilt table followed by an EP study alternatively assuming a primary conduction abnormality its not unreasonable to implant a device. Avoid dane stressors. Discharge Exam - Head Exam Head Exam: ATRAUMATIC, NORMAL INSPECTION, NORMOCEPHALIC - Eye Exam Eye Exam: Normal appearance Pupil Exam: NORMAL ACCOMODATION - ENT Exam ENT Exam: Mucous Membranes Moist - Neck Exam Neck exam: Normal Inspection - Respiratory Exam Respiratory Exam: NORMAL BREATHING PATTERN - Cardiovascular Exam Cardiovascular Exam: Irregular Rhythm - GI/Abdominal Exam GI & Abdominal Exam: Normal Bowel Sounds, Unremarkable - Extremities Exam Extremities exam: normal inspection - Back Exam Back exam: NORMAL INSPECTION - Neurological Exam Neurological exam: Alert, CN II-XII Intact, Normal Gait, Oriented x3 - Psychiatric Exam Psychiatric exam: Normal Affect, Normal Mood - Skin Skin Exam: Normal Color, Warm Discharge Plan - Follow Up Plan Condition: CRITICAL Disposition: Trans to Other Acute Care Hosp
--- NOTE | 2017-10-29 09:00 | CARD ---
APPROVED REPORT Date of service: 10/20/2017 EKG Measurement Heart [id number] <Conclusion> Sinus bradycardia with marked sinus arrhythmia Nonspecific intraventricular block Abnormal ECG
== END 2017-10-23 11:15 | disposition short-term general hospital (02) | DRG 287 ==
LOC: C.ER 19:26 → C.9I 21:03
PROVIDERS: ADMIT Internal Medicine; ATTEND Internal Medicine
PROC: 3E033XZ Introduction of Vasopressor into Peripheral Vein, Percutaneous Approach (ICD-10-PCS; principal; 2017-10-16)
PROC: 4A023N8 Measurement of Cardiac Sampling and Pressure, Bilateral, Percutaneous Approach (ICD-10-PCS; 2017-10-19)
PROC: B211YZZ Fluoroscopy of Multiple Coronary Arteries using Other Contrast (ICD-10-PCS; 2017-10-19)
PROC: B216YZZ Fluoroscopy of Right and Left Heart using Other Contrast (ICD-10-PCS; 2017-10-19)
DX: I25.10 Atherosclerotic heart disease of native coronary artery without angina pectoris (principal); I44.2 Atrioventricular block, complete; E87.3 Alkalosis; G45.0 Vertebro-basilar artery syndrome; I50.22 Chronic systolic (congestive) heart failure; E78.00 Pure hypercholesterolemia, unspecified; E87.6 Hypokalemia; I11.0 Hypertensive heart disease with heart failure; F40.240 Claustrophobia; Z95.2 Presence of prosthetic heart valve; Z79.4 Long term (current) use of insulin; I95.9 Hypotension, unspecified